=== PATIENT | female | born 1965 | race Caucasian/White ===

== ENCOUNTER → 2016-07-08 | Outpatient (REF) | payer OTHER | LOC: M SFHCWAGY 08:48 | PROVIDERS: ATTEND Nurse Practitioner Women's Health | DX: Z12.4 Encounter for screening for malignant neoplasm of cervix (principal) ==

== ENCOUNTER → 2016-07-08 | Outpatient (CLI) | payer OTHER ==
--- NOTE | 2016-07-08 11:33 | REPMRS ---
Patient History The patient states she had a clinical breast exam in 06/27 Patient is postmenopausal. No known family history of cancer. Benign FNA biopsy of the left breast, March 22, 2013. Benign cyst aspiration, 2009. Benign stereotatic breast biopsy, 2004. Digital Woman Screen Mammo: July 08, 2016 - Exam #: [id number] Bilateral CC and MLO view(s) were taken. Technologist: Adeola Duckworth, Technologist Prior study comparison: May 25, 2015, digital woman screen mammo performed at [facility]. May 29, 2014, bilateral digital mammo screening bilat, performed at [facility]. FINDINGS: The breast tissue is heterogeneously dense. This may lower the sensitivity of mammography. There has been no change in the appearance of the mammogram from the prior studies. There is a moderate amount of residual fibroglandular tissue which is fairly symmetric. There is no interval development of dominant mass, architectural distortion, or clustered microcalcification typical of malignancy. There are scattered, small, benign calcifications of doubtful clinical significance. No significant changes when compared with prior studies. ASSESSMENT: BI-RADS/ACR category 2 mammogram. Benign finding(s). Recommendation Routine screening mammogram in 1 year (for women over age 40). This mammogram was interpreted with the aid of an FDA-approved computer-aided dectection system. A. Negative x-ray reports should not delay biopsy if a dominant or clinically suspicious mass is present. B. Four to eight percent of cancers are not identified by mammography. C. Adenosis and dense breast may obscure an underlying neoplasm. Electronically Signed By: Lon Ritter MD 07/08/16 [id number]
== END ==
LOC: M WHC 08:37
PROVIDERS: ATTEND Nurse Practitioner Women's Health
DX: Z12.31 Encounter for screening mammogram for malignant neoplasm of breast (principal)

== ENCOUNTER → 2017-07-09 | Outpatient (REF) | payer OTHER ==
[2017-07-14 14:18] LABS: HPV HYBRID CAPTURE II Positive (Negative)
== END ==
LOC: M SFHCWAGY 08:44
DX: Z12.4 Encounter for screening for malignant neoplasm of cervix (principal)
CPT/HCPCS: G0123

== ENCOUNTER → 2017-07-09 | Outpatient (CLI) | payer OTHER | LOC: M WHC 08:34 | DX: Z12.31 Encounter for screening mammogram for malignant neoplasm of breast (principal); Z78.0 Asymptomatic menopausal state; Z98.890 Other specified postprocedural states; R92.8 Other abnormal and inconclusive findings on diagnostic imaging of breast | CPT/HCPCS: 77067 ==

== ENCOUNTER 2018-01-25 09:01 | Emergency (ER) | payer OTHER ==
[2018-01-25] MEDS: IBUPROFEN 600 MG TAB PO (10:08)
== END 2018-01-25 10:10 | disposition home or self-care (01) ==
LOC: M ED 09:01
DX: S52.045A Nondisplaced fracture of coronoid process of left ulna, initial encounter for closed fracture (principal); W17.89XA Other fall from one level to another, initial encounter; Y92.013 Bedroom of single-family (private) house as the place of occurrence of the external cause; G35 Multiple sclerosis; F17.210 Nicotine dependence, cigarettes, uncomplicated
CPT/HCPCS: 73080

== ENCOUNTER 2018-07-10 16:26 | Emergency (ER) | payer OTHER ==
[2018-07-10] MEDS ORDERED: NS 1,000 ML IV ONE (16:30)
[2018-07-10] MEDS ORDERED: PROPOFOL 1,000 MG/100 ML VIAL As Ordered ONE ×2 (16:39→17:08)
[2018-07-10 16:41] LABS: HEMATOCRIT 48.9 % (36.0-47.0); HEMOGLOBIN 15.6 g/dl (12.0-15.5); MEAN CORPUSCULAR HEMOGLOBIN 31.6 pg (27.0-33.0); MEAN CORPUSCULAR HGB CONC 31.9 g/dl (32.0-36.5); PLATELET COUNT, AUTOMATED 235 10^3/uL (150-450); RED BLOOD COUNT 4.94 10^6/uL (4.00-5.40)
[2018-07-10] MEDS ORDERED: HEPARIN DRIP 25,000 UNITS in APPROPRIATE DILUENT 1 EA IV SCH (16:41)
[2018-07-10 16:42] LABS: ABG BASE EXCESS -18.5 (-2.0-2.0); ABG HCO3 11.2 MEQ/L (22.0-26.0); ABG O2 SATURATION 99.2 % (95.0-99.0); ABG PARTIAL PRESSURE CO2 40.3 mmHg (35.0-45.0); ABG STANDARD HCO3 11.2 MEQ/L (22.0-26.0); ABG TOTAL CO2 12.4 MEQ/L (22.0-29.0)
[2018-07-10] MEDS ORDERED: HEPARIN SOD (PORCINE) 5000 UNITS/ML VIAL IV ONE (16:45)
[2018-07-10 16:46] LABS: ABG pH (ARTERIAL) 7.062 UNITS (7.350-7.450)
[2018-07-10] MEDS ORDERED: SODIUM BICARBONATE 8.4% INJ 50 ML SYRINGE IV STA (16:46)
[2018-07-10 16:52] LABS: WHITE BLOOD COUNT 10.7 10^3/uL (4.0-10.0)
[2018-07-10 17:00] LABS: INR 1.3; PROTHROMBIN TIME 16.4 SECONDS (12.1-14.4)
[2018-07-10 17:03] VITALS: BP 132/75
--- NOTE | 2018-07-10 17:10 | REP ---
Clinical: Chest pain . Comparison: 07/29/2010 . Findings: Right mainstem intubation is is identified and endotracheal tube requires repositioning. The mediastinum and cardiac silhouette are stable and within normal limits for portable technique. The lung pelayo are clear without acute consolidation, effusion, or pneumothorax. Skeletal structures are intact. Impression: 1. Endotracheal tube requires repositioning. 2. No acute cardiopulmonary process appreciated. Electronically Signed by Delfin Chanel MD 07/10/2018 05:01 P
[2018-07-10 17:19] LABS: ALBUMIN 3.4 GM/DL (3.2-5.2); ALT/SGPT 59 U/L (12-78); BILIRUBIN,DIRECT < 0.1 MG/DL (0.0-0.2); BILIRUBIN,TOTAL 0.4 MG/DL (0.2-1.0); BLOOD UREA NITROGEN 11 MG/DL (7-18); CALCIUM LEVEL 8.9 MG/DL (8.5-10.1); CARBON DIOXIDE LEVEL 18 MEQ/L (21-32); CHLORIDE LEVEL 103 MEQ/L (98-107); CK-MB VALUE MASS < 1.0 NG/ML (<3.6); CPK CREATINE PHOSPHOKINASE 97 U/L (26-192); CREATININE FOR GFR 1.05 MG/DL (0.55-1.30); GLOMERULAR FILTRATION RATE 57.9 (>51); GLUCOSE, FASTING 222 MG/DL (70-100); LIPASE 446 U/L (73-393); MB/CK RELATIVE INDEX 1.03 (< OR =4); POTASSIUM SERUM 3.6 MEQ/L (3.5-5.1); SODIUM LEVEL 140 MEQ/L (136-145)
[2018-07-10 17:23] LABS: ATYPICAL LYMPH 1 % (0-5); LYMPHOCYTES 50 % (16-52); METAMYELOCYTES 2 % (0-0); MONOCYTES 2 % (0-8); MYELOCYTES 4 % (0-0); NEUTROPHILS 38 % (35-75); PLATELET ESTIMATE NORMAL (NORMAL)
[2018-07-10] MEDS ORDERED: SUCCINYLCHOLINE INJ 200 MG/10 ML VIAL (J0330) IV STA (17:29)
[2018-07-10] MEDS ORDERED: ETOMIDATE INJ 20MG/10ML VIAL IV STA (17:29)
[2018-07-10] MEDS ORDERED: PROPOFOL 200 MG/20 ML VIAL IV ONE (17:30)
--- NOTE | 2018-07-10 18:15 | ECGEPIP ---
Stationary ECG Study [facility] - ED Test Date: 2018-07-10 Pat Name: SHELBY PANTOJA Department: Room: - Gender: F Coordinator Of Placement: HUI : 1965 Requested By: ANNEL TILLMAN Order Number: [id number] Reading MD: Alecia Nolan Measurements Intervals [place] Rate: 67 P: RI: 0 QRS: 33 QRSD: 128 T: 70 QT: 393 QTc: 415 Interpretive Statements ATRIAL FIBRILLATION INDETERMINATE AXIS RIGHT BUNDLE BRANCH BLOCK ST ELEVATION, ACUTE MS NO PRIOR FOR COMPARISON Electronically Signed On 07-10-2018 18:14:31 EDT by Alecia Nolan
== END 2018-07-10 17:19 | disposition short-term general hospital (02) ==
LOC: EDBD 16:26 → M ED 16:26
DX: I21.3 ST elevation (STEMI) myocardial infarction of unspecified site (principal); I48.91 Unspecified atrial fibrillation; I45.10 Unspecified right bundle-branch block; Z82.49 Family history of ischemic heart disease and other diseases of the circulatory system; Z79.82 Long term (current) use of aspirin; Z79.899 Other long term (current) drug therapy
CPT/HCPCS: 31500; 36600; 51702; 71045; 80048; 80076; 82550; 82553; 82803; 83690; 84484; 85025; 85610; 92950; 93005; 93041; 94002; 96374; 96375; 99291; J0330

== ENCOUNTER 2018-07-20 15:21 | Inpatient (IN) | payer OTHER ==
[~2018-07-20] VITALS: Ht 157.5 cm; Wt 61.8 kg
[2018-07-20] VITALS (14 sets, daily range): BP systolic 66–106; BP diastolic 39–69
[2018-07-20] MEDS ORDERED: ASPI81TA85 PO (15:42)
[2018-07-20] MEDS ORDERED: AMOX875T2 PO (15:42)
[2018-07-20] MEDS ORDERED: BRIL90TA PO (15:47)
[2018-07-20] MEDS ORDERED: CALC600T3 PO (15:47)
[2018-07-20] MEDS ORDERED: GUAI20TA PO (15:47)
[2018-07-20] MEDS ORDERED: POTA20TA6 PO (15:47)
[2018-07-20] MEDS ORDERED: ATOR40TA75 PO (15:47)
[2018-07-20 15:54] LABS: BASO # 0.1 10^3/uL (0.0-0.2); BASO % 0.3 % (0.0-1.0); EOS # 0.2 10^3/uL (0.0-0.50); EOS % 1.1 % (0.0-3.0); HEMOGLOBIN 10.3 g/dl (12.0-15.5); LYMPH # 1.7 10^3/uL (1.5-4.5); LYMPH % 9.3 % (24.0-44.0); MEAN CORPUSCULAR HEMOGLOBIN 31.1 pg (27.0-33.0); MEAN CORPUSCULAR HGB CONC 33.2 g/dl (32.0-36.5); MEAN CORPUSCULAR VOLUME 93.7 fl (80.0-96.0); MONO # 0.8 10^3/uL (0.0-0.8); MONO % 4.2 % (0.0-5.0); NEUTROPHILS # 15.5 10^3/uL (1.8-7.7); NEUTROPHILS % 82.7 % (36.0-66.0); PLATELET COUNT, AUTOMATED 635 10^3/uL (150-450); RED BLOOD COUNT 3.31 10^6/uL (4.00-5.40); WHITE BLOOD COUNT 18.7 10^3/uL (4.0-10.0)
--- NOTE | 2018-07-20 16:26 | REP ---
Portable chest, single AP semi upright view, three, 59 p.m.: Comparison is 07/10/2018. The previous endotracheal tube has been removed. Lung pelayo are clear. Cardiac size is normal. The tere, mediastinum, skeletal structures are. Impression: Negative portable chest. Electronically Signed by Nick Martinez MD 07/20/2018 04:17 P
[2018-07-20 16:58] LABS: ALBUMIN 2.4 GM/DL (3.2-5.2); ALT/SGPT 77 U/L (12-78); BILIRUBIN,DIRECT 0.1 MG/DL (0.0-0.2); BILIRUBIN,TOTAL 0.4 MG/DL (0.2-1.0); BLOOD UREA NITROGEN 26 MG/DL (7-18); CALCIUM LEVEL 8.7 MG/DL (8.5-10.1); CARBON DIOXIDE LEVEL 24 MEQ/L (21-32); CHLORIDE LEVEL 105 MEQ/L (98-107); CK-MB VALUE MASS < 1.0 NG/ML (<3.6); CPK CREATINE PHOSPHOKINASE 27 U/L (26-192); CREATININE FOR GFR 0.69 MG/DL (0.55-1.30); GLOMERULAR FILTRATION RATE > 60.0 (>51); GLUCOSE, FASTING 117 MG/DL (70-100); POTASSIUM SERUM 4.7 MEQ/L (3.5-5.1); SODIUM LEVEL 137 MEQ/L (136-145); TOTAL PROTEIN 6.3 GM/DL (6.4-8.2); TROPONIN I 0.06 NG/ML (< 0.10)
--- NOTE | 2018-07-20 17:41 | REP ---
CT CHEST WITHOUT IV CONTRAST: CT chest was performed without IV contrast. Sagittal and coronal reconstruction images are performed. There are diffuse bilateral reticulonodular opacities, throughout both lungs. The differential diagnosis would include diffuse pneumonitis and or fibrosis. There is mild right lower lobe bronchiectasis with inspissated secretions medially in the right lower lobe and associated mild atelectasis or infiltrate in that area. No axillary or mediastinal adenopathy is seen. There is mild atherosclerotic calcification of the thoracic aorta without aneurysm. There are coronary artery calcifications. The heart is normal in size. There is no pleural or pericardial effusion. There are degenerative changes of the spine. There are nondisplaced fractures of the anterior bilateral 2nd through 6th ribs. There is a 2 cm left adrenal adenoma. IMPRESSION: Diffuse reticulonodular opacities throughout both lungs. Differential diagnosis would include diffuse pneumonitis and or fibrosis. There is mild right lower lobe bronchiectasis medially with inspissated secretions and mild associated atelectasis/infiltrate. There are nondisplaced fractures of the anterior bilateral 2nd through 6th ribs. Electronically Signed by Nick Gan MD 07/21/2018 03:18 P
[2018-07-20] MEDS ORDERED: PIPERACILLIN/TAZOBACTAM SOD 3.375 GM in D5W MINI-BAG PLUS 50 ML IV ONE (18:00)
[2018-07-20] MEDS ORDERED: NS 500 ML IV ONE ×3 (18:15→19:30)
[2018-07-20] MEDS ORDERED: ACETAMINOPHEN TAB 650MG DOSE (2X325MG) PO ONE (19:00)
[2018-07-20] MEDS ORDERED: ACETAMINOPHEN 325 MG TAB As Ordered ONE (19:14)
[2018-07-20] MEDS ORDERED: NS 1,000 ML IV ONE (19:15)
[2018-07-20 19:19] LABS: CK-MB VALUE MASS < 1.0 NG/ML (<3.6); CPK CREATINE PHOSPHOKINASE 22 U/L (26-192); MB/CK RELATIVE INDEX 4.55 (< OR =4); TROPONIN I 0.07 NG/ML (< 0.10)
[2018-07-20] MEDS ORDERED: NITR0.4S14 SL (19:58)
[2018-07-20] MEDS ORDERED: COMBAER6 INH (19:58)
[2018-07-20] MEDS ORDERED: MUCI600T31 PO (19:58)
[2018-07-20] MEDS ORDERED: D 202000 PO (19:58)
[2018-07-20] MEDS ORDERED: POTA20PW PO (19:58)
[2018-07-20] MEDS ORDERED: MORPHINE 4 MG/ML 1ML VIAL/SYRINGE (J2270) IV PRN (20:15)
[2018-07-20] MEDS ORDERED: PANTOPRAZOLE 40MG INJ (PROTONIX) (C9113) IV ONE (20:45)
[2018-07-20] MEDS: PANTOPRAZOLE SODIUM 40 MG in D5W 50 ML IV SCH (20:45)
[2018-07-20] MEDS ORDERED: NOREPINEPHRINE BITARTRATE 8 MG in D5W 492 ML IV SCH ×2 (20:45)
[2018-07-20] MEDS ORDERED: POTASSIUM CHL PWD 20 MEQ PACKET PO SCH (21:00)
[2018-07-20] MEDS ORDERED: TICAGRELOR 90 MG TABLET (BRILINTA) PO SCH (21:00)
[2018-07-20] MEDS ORDERED: VANCOMYCIN HCL 1,000 MG, VIAL MATE ADAPTER 1 EACH in D5W 250 ML IV SCH (21:00)
--- NOTE | 2018-07-20 21:02 | PHACANCOPD ---
PHARMACY VANCOMYCIN DOSING Pt Demographics Demographics Patient Age:53 , Weight:74.090 , Gender: female Adjusted Body Weight Date: 07/20/18, Adjusted Body Weight: Kg Vancomycin Vancomycin indication: HCAP Vancomycin Target Ranges: 15-20 mcg/ml Vancomycin Load Y/N: Yes Load Dose Date Time Vancomycin Load Dose: 1500mg Date:07/20/18 Time:2100 Vancomycin Dose Date: 07/20/18. Current Vancomycin Dose: [1g IV Q12H] Intermittent Dosing?: No Labs Labs Item Value Date Time White Blood Count 18.7 10^3/uL H 07/20/18 1536 Creatinine 0.69 MG/DL 07/20/18 1619 Micro Microbiology 07/20/18 Blood Culture, Received Pending 07/20/18 Blood Culture, Received Pending 07/20/18 Respiratory Virus Panel (PCR) (GEETHA) - Final, Complete Creatinine Clearance Date:07/20/18.Est Creatinine Clearance: [~79ml/min]. Assessment and Plan Maintaining Current Dose?: Yes Reason for dose change: No Dose Change Pharmacist Note Pharmacist Note Date: 07/20/18. Pharmacist note: Day #1 empiric vancomycin therapy initiated with a 1500mg loading dose, followed by a maintenance regimen of 1g IV Q12H for the treatment of HCAP - aiming for a goal trough of 15-20mcg/ml. WBC, pulse, and RR are currently elevated. The patient is afebrile and pulse ox is currently WNL on room air. Blood cultures are pending. No PMH of MRSA or vanco use here at [facility]. We will continue to monitor the patient's renal function and schedule a trough level when deemed appropriate. [facility]OYA ULLOA [facility] Jul 20, 2018 21:02
--- NOTE | 2018-07-20 21:21 | HPEPDOC ---
[facility] Medical History & Physical Date of Admission Jul 20, 2018 History and Physical CHIEF COMPLAINT: shortness of breath, nausea, vomiting, weakness HISTORY OF PRESENT ILLNESS: Star Lindsay is a 53 YO F with CAD (s/p MA and 2 EULALIA placed 10 days ago at [facility]), and multiple sclerosis who presents with several hours weakness, nausea, diarrhea and shortness of breath. She was just discharged from [facility] 10 days ago, and has been taking all of her medication as prescribed and was reportedly improving, however, today around 2 PM her notes that she was profoundly weak, lightheaded, dizzy, complained of nausea and had diarrhea. She does report some subjective fevers and chills and has been experiencing shortness of breath to the point where she cannot get out of bed. Hospital records were obtained from [facility] and reports that prior to discharge. Her last chest x-ray shows resolving edema but still concerns for pneumonia or atelectasis. He was started on oral Augmentin and has been taking it. She did receive chest compressions when she had her MA and has several rib fractures that are causing her a great deal of chest wall tenderness. In the ED, she was found to be hypotensive with systolic 80s and diastolic 50s and a map around 60. The hospitalist group was called for admission and she will be sent to the ICU for fluid resuscitation and concern for pneumonia versus septic shock. PAST MEDICAL HISTORY: 1. Multiple sclerosis 2. CAD S/P 2 drug-eluting stents on 07/11/2018 PAST SURGICAL HISTORY: None SOCIAL HISTORY: Lives in [place] with her . Never smoker. No alcohol use. FAMILY HISTORY: Noncontributory ALLERGIES: Please see below. REVIEW OF SYSTEMS: A 10 point review of systems was performed and is negative other than what is stated in the [facility] HOME MEDICATIONS: Please see below. PHYSICAL EXAMINATION: VITAL SIGNS: Temperature 99, pulse 98, respiratory rate 24, blood pressure 80/54, pulse oximetry 100 % on room air. GENERAL APPEARANCE: Very pale appearing, laying in bed, calm, no acute distress HEENT: Moist mucous membranes, no thyromegaly, or extra ocular movements intact CARDIOVASCULAR: Tachycardic but regular, no murmurs, no rubs, no gallops LUNGS: Rhonchorous at the bases bilaterally ABDOMEN: Soft, nontender, + BS, no masses, no organomegaly MUSCULOSKELETAL: Moves all extremities well EXTREMITIES: No clubbing, cyanosis or edema NEUROLOGICAL: No focal deficits appreciated PSYCHIATRIC: AAO 3, normal mood, normal affect LABORATORY DATA: See below. IMAGING: CXR: The previous endotracheal tube has been removed. Lung pelayo are clear. Cardiac size is normal. The tere, mediastinum, skeletal structures are. Impression: Negative portable chest CT CHEST: Diffuse reticulonodular opacities throughout both lungs. Differential diagnosis would include diffuse pneumonitis and or fibrosis. There is mild right lower lobe bronchiectasis medially with inspissated secretions and mild associated atelectasis/infiltrate. There are nondisplaced fractures of the anterior bilateral 2nd through 6th ribs. MICROBIOLOGY: Please see below. ASSESSMENT: This is a 53-year-old woman with recent history of MA and placement of 2 stents in [place] who presents with several hours, nausea, vomiting, weakness and found to have a CT chest with reticular nodular opacities throughout both lungs concerning for pneumonia. She is also hypotensive, tachycardic, and experiencing hemoptysis which is also concerning for signs of septic shock with or without a stress ulcer. She will be admitted to the ICU for close monitoring and fluid resuscitation PLAN: #Hypotension and tachycardia concerning for septic shock Vs hypovolemic shock from GIB: Patient is afebrile but does have a elevated white count at 18.7. No known source of infection. While CT chest is concerning for pneumonia. It is noted that on her records from outside hospital she did have some evidence of atelectasis at her bases and was told to follow-up with pulmonology after her admission in [place]. -s/p 1500 mL IV fluid boluses in the ED. We'll continue fluid resuscitation at this time and will watch for response with her blood pressure and urine output. The family states that her blood pressure normally runs low. Goal MAP is to keep her above 60 -Blood cultures pending -RVP negative -Urine negative for infection -The patient will be given Levophed through the peripheral IV at this time. Contingency plan is to place central line if needed. #Hematemesis and Melena and Acute blood loss anemia: The patient started to experience hematemesis in the ER. Given her recent hospitalization and interventions this may be due to stress ulcer. -GI consulted. Appreciate recommendations -Pantoprazole gtt -Type and cross on record with plan to transfuse if necessary -Patient is somewhat anemic on admission with a hemoglobin of 10.3, which is lower than her baseline -will hold Brillinta and asa tonight. #CAD status post recent drug-eluting stent placement: The patient's nurse instructor in [place] (Dr. Fajardo) made aware of her hospitalization here -Patient appears to be stable. She will continue her home dose of Brilinta. If our pharmacy does not have it she did bring it from home. -Patient will need an echocardiogram -BNP pending DVT PPX: TEDS/Sequentials CODE STATUS: FULL CODE Vital Signs Vital Signs Date Time Temp Pulse Resp B/P (MAP) Pulse Ox O2 Delivery O2 Flow Rate FiO2 07/20/18 20:00 98 24 80/54 (63) 100 Room Air 07/20/18 19:11 99.0 Laboratory Data Labs 24H Laboratory Tests 2 07/20/18 15:36: Immature Granulocyte % (Auto) 2.4, White Blood Count 18.7H, Red Blood Count 3.31L, Hemoglobin 10.3L, Hematocrit 31.0L, Mean Corpuscular Volume 93.7, Mean Corpuscular Hemoglobin 31.1, Mean Corpuscular Hemoglobin Concent 33.2, Red Cell Distribution Width 13.7, Platelet Count 635H, Neutrophils (%) (Auto) 82.7H, Lymphocytes (%) (Auto) 9.3L, Monocytes (%) (Auto) 4.2, Eosinophils (%) (Auto) 1.1, Basophils (%) (Auto) 0.3, Neutrophils # (Auto) 15.5H, Lymphocytes # (Auto) 1.7, Monocytes # (Auto) 0.8, Eosinophils # (Auto) 0.2, Basophils # (Auto) 0.1, Nucleated Red Blood Cells % (auto) 0.0 07/20/18 16:19: Anion Gap 8, Glomerular Filtration Rate > 60.0, Calcium Level 8.7, Aspartate Amino Transf (AST/SGOT) 40H, Alanine Aminotransferase (ALT/SGPT) 77, Alkaline Phosphatase 131H, Total Bilirubin 0.4, Direct Bilirubin 0.1, Total Creatine Kinase 27, Creatine Kinase MB < 1.0, Creatine Kinase MB Relative Index 3.70, Troponin I 0.06, Total Protein 6.3L, Albumin 2.4L, Albumin/Globulin Ratio 0.62L 07/20/18 17:55: Urine Color YELLOW, Urine Appearance CLOUDYH, Urine pH 5.0, Urine Specific Parsons 1.039, Urine Protein 1+H, Urine Glucose (UA) NEGATIVE, Urine Ketones TRACEH, Urine Blood NEGATIVE, Urine Nitrite NEGATIVE, Urine Bilirubin 1+H, Urine Urobilinogen 2.0H, Urine Leukocyte Esterase NEGATIVE, Urine WBC (Auto) 4H, Urine RBC (Auto) 3, Urine Hyaline Casts (Auto) 0, Urine Bacteria (Auto) NEGATIVE, Urine Squamous Epithelial Cells 69, Urine Calcium Oxalate Cryst (Auto) SMALL, Urine Mucus (Auto) LARGE, Urine Sperm (Auto) 07/20/18 18:44: Total Creatine Kinase 22L, Creatine Kinase MB < 1.0, Creatine Kinase MB Relative Index 4.55H, Troponin I 0.07 CBC/BMP Laboratory Tests 07/20/18 15:36 Red Blood Count 3.31 L, Mean Corpuscular Volume 93.7, Mean Corpuscular Hemoglobin 31.1, Mean Corpuscular Hemoglobin Concent 33.2, Red Cell Distribution Width 13.7, Neutrophils (%) (Auto) 82.7 H, Lymphocytes (%) (Auto) 9.3 L, Monocytes (%) (Auto) 4.2, Eosinophils (%) (Auto) 1.1, Basophils (%) (Auto) 0.3, Neutrophils # (Auto) 15.5 H, Lymphocytes # (Auto) 1.7, Monocytes # (Auto) 0.8, Eosinophils # (Auto) 0.2, Basophils # (Auto) 0.1 07/20/18 16:19 Microbiology Microbiology 07/20/18 Blood Culture, Received Pending 07/20/18 Blood Culture, Received Pending 07/20/18 Respiratory Virus Panel (PCR) (GEETHA) - Final, Complete Home Medications Scheduled Amoxicillin/Potassium Clav (Amox-Clav 875-125 mg Tablet) 1 Each Tablet, 1 TAB PO BID STARTED 07/16/2018 Aspirin (Aspir 81) 81 Mg Tablet.dr, 81 MG PO DAILY Atorvastatin Calcium (Atorvastatin Calcium) 40 Mg Tablet, 40 MG PO QHS Calcium Carbonate (Calcium Carbonate) 600 Mg Tablet, 600 MG PO DAILY Cholecalciferol (Vitamin D3) (Vitamin D3) 2,000 Unit Tablet, 2,000 UNIT PO DAILY Potassium Chloride (Potassium Chloride) 20 Meq Packet, 20 MEQ PO BID Ticagrelor Base (Brilinta) 90 Mg Tablet, 90 MG PO BID Scheduled PRN Guaifenesin (Mucinex) 600 Mg Tab.er.12h, 600 MG PO DAILY PRN for CONGESTION Ipratropium/Albuterol Sulfate (Combivent Respimat 20-100 Mcg) 4 Gm Mist.inhal, 1 PUFF INH Q6H PRN for SHORTNESS OF BREATH Nitroglycerin (Nitroglycerin) 0.4 Mg Tab.subl, 0.4 MG SL NITRO PRN for CHEST PAIN Allergies Coded Allergies: No Known Allergies (Unverified , 01/25/18) GME ATTESTATION GME ATTESTATION My faculty preceptor for this patient encounter was physically present during the encounter and was fully available. All aspects of the patient interview, examination, medical decision making process, and medical care plan development were reviewed and approved by the faculty preceptor. The faculty preceptor is aware and concurs with the plan as stated in the body of this note and will attest to such by his/her cosignature. ATTENDING NOTE I have reviewed the residents note and have personally examined the patient. I agree with the Residents physical examination and assessment and plan with the following addendum. Soon after admission patient started having hematemesis and milly. Repeat HH had dropped to 5.5 from 10 .3 on admission. 4 units of PRBC were requested. GI was consulted for urgent endoscopy. Dr Fajardo was contacted again regarding her Brilinta and asa. He said inspite of the bleeding we will have to continue it otherwise the stent will get thrombosed and the patient will end up with the massive anterior wall AMI. Patient remained hypotensive inspite of fluid resuscitation. Levophed was ordered and PRBC transfusions started. Patient was taken to OR for emergent endoscopy . pateint was started on pantoprazole gtt. So the patient was diagnosed with hypovolemic shock from upper gastrointestinal bleeding rather than septic shock from pneumonia. However will continue with Zosyn coverage for now as with ongoing hematemesis, endoscopy patient is at high risk for aspiration and aspiration pneumonia. GITA GARSIA MD Jul 20, 2018 21:20 LATOYA CARDENAS MD Jul 20, 2018 22:12
[2018-07-20 21:49] LABS: BASO % 0.2 % (0.0-1.0); EOS % 0.2 % (0.0-3.0); HEMATOCRIT 17.4 % (36.0-47.0); LYMPH # 2.3 10^3/uL (1.5-4.5); LYMPH % 11.5 % (24.0-44.0); MEAN CORPUSCULAR HEMOGLOBIN 31.5 pg (27.0-33.0); MEAN CORPUSCULAR HGB CONC 32.2 g/dl (32.0-36.5); MEAN CORPUSCULAR VOLUME 97.8 fl (80.0-96.0); MONO # 0.9 10^3/uL (0.0-0.8); MONO % 4.7 % (0.0-5.0); NEUTROPHILS # 15.5 10^3/uL (1.8-7.7); NEUTROPHILS % 79.4 % (36.0-66.0); PLATELET COUNT, AUTOMATED 502 10^3/uL (150-450); RED BLOOD COUNT 1.78 10^6/uL (4.00-5.40); WHITE BLOOD COUNT 19.6 10^3/uL (4.0-10.0)
[2018-07-20 21:54] LABS: FREE T4 1.41 NG/DL (0.76-1.46); NT-PRO BNP 1156 PG/ML (<125)
[2018-07-20 21:55] LABS: HEMOGLOBIN 5.6 g/dl (12.0-15.5)
[2018-07-20] MEDS ORDERED: NOREPINEPHRINE BITARTRATE 4 MG in D5W 492 ML IV SCH (22:00)
[2018-07-20] MEDS ORDERED: VANCOMYCIN HCL 500 MG in D5W MINI-BAG PLUS 100 ML IV ONE (22:00)
[2018-07-20] MEDS ORDERED: NOREPINEPHRINE 4 MG/4 ML AMP As Ordered ONE (22:03)
[2018-07-20] MEDS: NOREPINEPHRINE BITARTRATE 8 MG in D5W 492 ML IV SCH (23:00)
[2018-07-21] VITALS (93 sets, daily range): BP systolic 82–151; BP diastolic 44–77
[2018-07-21] MEDS ORDERED: EPINEPHrine 1MG/10ML SYRINGE 1.5IN As Ordered ONE (00:28)
[2018-07-21] MEDS ORDERED: EPINEPHrine 1MG/10ML SYRINGE 1.5IN ONE (00:28)
[2018-07-21] MEDS ORDERED: METOCLOPRAMIDE INJ 10MG/2ML VIAL (J2765) IV STA (00:31)
--- NOTE | 2018-07-21 00:33 | CR.PDOC ---
General Date of Consultation: Jul 21, 2018 Referring Provider: LATOYA CARDENAS MD Attending Physician: SYED TOLENTINO MD Consultation REASON FOR CONSULTATION/CHIEF COMPLAINT: Hematemesis and requirement for urgent EGD.. HISTORY OF PRESENT ILLNESS: 53 year old female patient with CAD (s/p IA and 2 EULALIA placed in June 2018 at [facility]), and multiple sclerosis, presented with several hours weakness, nausea, diarrhea and shortness of breath, lightheaded, and dizzy. Patient was discharged from [facility] around 1 week ago, had rib fractures from CPR she received during her IA and reporting chest pain as well. Patient was noted with hypotension and infiltrates in Chest Xray and was started on therapy for suspected Pneumonia and Sepsis (Patient also had elevated WBC). Patient had one episode of hematemesis and her repeat CBC dropped and GI was consulted for the same. Patient denies any abdominal pain, but reports having two dark bloody stools since she is admitted. ALLERGIES: NKDA. HOME MEDICATIONS: Please see below. Patient is on ASA and Brilinta PAST MEDICAL HISTORY: 1. Multiple sclerosis. 2. CAD s/p IA and 2 EULALIA in June 2018. PAST SURGICAL HISTORY: 1. Appendectomy many years ago. FAMILY HISTORY: Non - contributory. SOCIAL HISTORY: , Next of kin . Patient denies any alcohol use, smoking. REVIEW OF SYSTEMS: CONSTITUTIONAL: Dizziness, Lightheadedness. No fever. HEENT: denies any dysphagia. CARDIOVASCULAR: Reports chest pain since her rib fractures from CPR. RESPIRATORY: Denies any cough with phlegm but has shortness of breath. GENITOURINARY: NO blood in urine.. GASTROINTESTINAL: as above.. SKIN: No new skin rash. NEUROLOGICAL: No focal weakness.. ENDOCRINE: None HEMATOLOGIC/LYMPHATIC: pallor. ALLERGIC/IMMUNOLOGIC: NO autoimmune issues.. PHYSICAL EXAMINATION: VITAL SIGNS: Please see below. GENERAL APPEARANCE: AAO x 3, Mild distress from shortness of breath and chest pain . HEENT: NC/ AT, Conjunctival pallor, No dysphagia. RESPIRATORY: Bilateral air entry. CARDIOVASCULAR: s1, s2 heard, no murmurs. ABDOMEN: Soft, non distended, normal bowel sounds. EXTREMITIES: bilateral clear.. NEUROLOGICAL: NO focal weakness, moving all extremities. LABORATORY DATA: Please see below. Impression: -- Overt active GI bleeding with hematemesis and maroon stools and acute drop in Hemoglobin -- Likely upper GI bleeding and in view of ASA and Brilinta use likely PUD vs AVM vs less likely MWT. -- Recent acute IA s/p EULALIA placement. very elevated risk. Recommendations: -- Monitor H/H and transfuse as needed to keep hemoglobin above 10gm/dL. -- Pantoprazole IV bolus and continuous drip for atleast 24 hours. -- NPO. -- Antithrombotic management as per discussion with cardiology and considering the risks and benefits. Educated the GI risks with patient but in view of recent IA her cardiac risks are also very high. -- Emergent EGD scheduled now. -- Patient and her were educated in detail about the procedure, indications, benefits, risks ( including elevated anesthesia risk after recent IA), and alternatives ( including no intervention and monitoring) were educated and Both verbalized understanding and patient consented for the procedure. -- Further Gi recommendations based on the EGD findings. plan of care discussed with patient and all questions answered. and recommendations communicated to patient. Vital Signs/I&O Vital Signs Date Time Temp Pulse Resp B/P (MAP) Pulse Ox O2 Delivery O2 Flow Rate FiO2 07/20/18 23:46 106/68 (81) 07/20/18 23:31 103 100 07/20/18 23:00 98.9 2.0 100 07/20/18 20:50 20 Room Air I&O- Last 24 Hours up to 6 AM 07/21/18 06:00 Intake Total 1050 ml Balance 1050 ml Laboratory Data Labs 24H Laboratory Tests 2 07/20/18 15:36: Immature Granulocyte % (Auto) 2.4, White Blood Count 18.7H, Red Blood Count 3.31L, Hemoglobin 10.3L, Hematocrit 31.0L, Mean Corpuscular Volume 93.7, Mean Corpuscular Hemoglobin 31.1, Mean Corpuscular Hemoglobin Concent 33.2, Red Cell Distribution Width 13.7, Platelet Count 635H, Neutrophils (%) (Auto) 82.7H, Lymphocytes (%) (Auto) 9.3L, Monocytes (%) (Auto) 4.2, Eosinophils (%) (Auto) 1.1, Basophils (%) (Auto) 0.3, Neutrophils # (Auto) 15.5H, Lymphocytes # (Auto) 1.7, Monocytes # (Auto) 0.8, Eosinophils # (Auto) 0.2, Basophils # (Auto) 0.1, Nucleated Red Blood Cells % (auto) 0.0 07/20/18 16:19: Anion Gap 8, Glomerular Filtration Rate > 60.0, Calcium Level 8.7, Aspartate Amino Transf (AST/SGOT) 40H, Alanine Aminotransferase (ALT/SGPT) 77, Alkaline Phosphatase 131H, Total Bilirubin 0.4, Direct Bilirubin 0.1, Total Creatine Kinase 27, Creatine Kinase MB < 1.0, Creatine Kinase MB Relative Index 3.70, Troponin I 0.06, Total Protein 6.3L, Albumin 2.4L, Albumin/Globulin Ratio 0.62L 07/20/18 17:55: Urine Color YELLOW, Urine Appearance CLOUDYH, Urine pH 5.0, Urine Specific Rogers 1.039, Urine Protein 1+H, Urine Glucose (UA) NEGATIVE, Urine Ketones TRACEH, Urine Blood NEGATIVE, Urine Nitrite NEGATIVE, Urine Bilirubin 1+H, Urine Urobilinogen 2.0H, Urine Leukocyte Esterase NEGATIVE, Urine WBC (Auto) 4H, Urine RBC (Auto) 3, Urine Hyaline Casts (Auto) 0, Urine Bacteria (Auto) NEGATIVE, Urine Squamous Epithelial Cells 69, Urine Calcium Oxalate Cryst (Auto) SMALL, Urine Mucus (Auto) LARGE, Urine Sperm (Auto) 07/20/18 18:44: Total Creatine Kinase 22L, Creatine Kinase MB < 1.0, Creatine Kinase MB Relative Index 4.55H, Troponin I 0.07, GW-Swn-O-Type Natriuretic Peptide 1156H, Thyroid Stimulating Hormone (TSH) 1.590, Free Thyroxine 1.41 07/20/18 21:30: Immature Granulocyte % (Auto) 4.0H, White Blood Count 19.6H, Red Blood Count 1.78L, Hemoglobin 5.6#*L, Hematocrit 17.4L, Mean Corpuscular Volume 97.8H, Mean Corpuscular Hemoglobin 31.5, Mean Corpuscular Hemoglobin Concent 32.2, Red Cell Distribution Width 13.8, Platelet Count 502#H, Neutrophils (%) (Auto) 79.4H, Lymphocytes (%) (Auto) 11.5L, Monocytes (%) (Auto) 4.7, Eosinophils (%) (Auto) 0.2, Basophils (%) (Auto) 0.2, Neutrophils # (Auto) 15.5H, Lymphocytes # (Auto) 2.3, Monocytes # (Auto) 0.9H, Eosinophils # (Auto) 0.0, Basophils # (Auto) 0.0, Nucleated Red Blood Cells % (auto) 0.0 CBC/BMP Laboratory Tests 07/20/18 15:36 Red Blood Count 3.31 L, Mean Corpuscular Volume 93.7, Mean Corpuscular Hemoglobin 31.1, Mean Corpuscular Hemoglobin Concent 33.2, Red Cell Distribution Width 13.7, Neutrophils (%) (Auto) 82.7 H, Lymphocytes (%) (Auto) 9.3 L, Monocytes (%) (Auto) 4.2, Eosinophils (%) (Auto) 1.1, Basophils (%) (Auto) 0.3, Neutrophils # (Auto) 15.5 H, Lymphocytes # (Auto) 1.7, Monocytes # (Auto) 0.8, Eosinophils # (Auto) 0.2, Basophils # (Auto) 0.1 07/20/18 16:19 07/20/18 21:30 Red Blood Count 1.78 L, Mean Corpuscular Volume 97.8 H, Mean Corpuscular Hemoglobin 31.5, Mean Corpuscular Hemoglobin Concent 32.2, Red Cell Distribution Width 13.8, Neutrophils (%) (Auto) 79.4 H, Lymphocytes (%) (Auto) 11.5 L, Monocytes (%) (Auto) 4.7, Eosinophils (%) (Auto) 0.2, Basophils (%) (Auto) 0.2, Neutrophils # (Auto) 15.5 H, Lymphocytes # (Auto) 2.3, Monocytes # (Auto) 0.9 H, Eosinophils # (Auto) 0.0, Basophils # (Auto) 0.0 Microbiology Microbiology 07/20/18 Blood Culture, Received Pending 07/20/18 Blood Culture, Received Pending 07/20/18 Stool Occult Blood (GEETHA), Received Pending 07/20/18 Respiratory Virus Panel (PCR) (GEETHA) - Final, Complete Allergies Coded Allergies: No Known Allergies (Unverified , 01/25/18) Home Medications Scheduled Amoxicillin/Potassium Clav (Amox-Clav 875-125 mg Tablet) 1 Each Tablet, 1 TAB PO BID, (Reported) STARTED 07/16/2018 Aspirin (Aspir 81) 81 Mg Tablet.dr, 81 MG PO DAILY, (Reported) Atorvastatin Calcium (Atorvastatin Calcium) 40 Mg Tablet, 40 MG PO QHS, (Reported) Calcium Carbonate (Calcium Carbonate) 600 Mg Tablet, 600 MG PO DAILY, (Reported) Cholecalciferol (Vitamin D3) (Vitamin D3) 2,000 Unit Tablet, 2,000 UNIT PO DAILY, (Reported) Potassium Chloride (Potassium Chloride) 20 Meq Packet, 20 MEQ PO BID, (Reported) Ticagrelor Base (Brilinta) 90 Mg Tablet, 90 MG PO BID, (Reported) Scheduled PRN Guaifenesin (Mucinex) 600 Mg Tab.er.12h, 600 MG PO DAILY PRN for CONGESTION, (Reported) Ipratropium/Albuterol Sulfate (Combivent Respimat 20-100 Mcg) 4 Gm Mist.inhal, 1 PUFF INH Q6H PRN for SHORTNESS OF BREATH, (Reported) Nitroglycerin (Nitroglycerin) 0.4 Mg Tab.subl, 0.4 MG SL NITRO PRN for CHEST PAIN, (Reported) SYED TOLENTINO MD Jul 21, 2018 00:33
[2018-07-21] MEDS ORDERED: METOCLOPRAMIDE INJ 10MG/2ML VIAL (J2765) As Ordered ONE (01:01)
[2018-07-21] MEDS ORDERED: fentaNYL 100 MCG/2 ML INJECTION (J3010) As Ordered ONE (01:01)
[2018-07-21] MEDS ORDERED: SUCCINYLCHOLINE 100 MG/5 ML SYRINGE (J0330) As Ordered ONE (01:01)
[2018-07-21] MEDS ORDERED: LIDOCAINE 2% INJ 100 MG/5 ML SDV (FOR ANES.) As Ordered ONE (01:01)
[2018-07-21] MEDS ORDERED: PROPOFOL 200 MG/20 ML VIAL As Ordered ONE (01:01)
--- NOTE | 2018-07-21 01:23 | REP ---
Clinical: Line placement . Comparison: 07/20/2018 at 03:58 p.m. . Findings: Right IJ line with tip in the SVC. The mediastinum and cardiac silhouette are stable and within normal limits for portable technique. The lung pelayo are clear without acute consolidation, effusion, or pneumothorax. Skeletal structures are intact. Impression: No acute cardiopulmonary process appreciated. Electronically Signed by Delfin Chanel MD 07/21/2018 01:14 A
[2018-07-21] MEDS ORDERED: ROCURONIUM BROMIDE 50 MG/5 ML VIAL As Ordered ONE (01:24)
[2018-07-21] MEDS ORDERED: PROPOFOL 1,000 MG/100 ML VIAL As Ordered ONE (01:50)
[2018-07-21 02:10] LABS: HEMATOCRIT 33.9 % (36.0-47.0); MEAN CORPUSCULAR HEMOGLOBIN 29.4 pg (27.0-33.0); MEAN CORPUSCULAR HGB CONC 32.4 g/dl (32.0-36.5); MEAN CORPUSCULAR VOLUME 90.6 fl (80.0-96.0); RED BLOOD COUNT 3.74 10^6/uL (4.00-5.40); WHITE BLOOD COUNT 24.9 10^3/uL (4.0-10.0)
[2018-07-21 02:17] LABS: PLATELET COUNT, AUTOMATED 395 10^3/uL (150-450)
--- NOTE | 2018-07-21 02:36 | IPNPDOC ---
Date Seen The patient was seen on 07/21/18. Progress Note Interval history: Patient had emergent EGD today. Patient received a dose of Reglan prior to pr ocedure. Patient tolerated procedure well. EGD findings: Noted normal esophagus, no MWT, noted large blood clot in Gastric fundus, body extending till antrum. lavage was performed and noted no ulcer in antrum but body and fundus could not be cleared. Duodenum did not show any ulcer or active bleeding. Recommendations: -- Continue IV pantoprazole. -- Will keep the patient intubated and repeat labs and transfuse for now. -- Monitor H/H every 6 hours and transfuse as needed to keep hemoglobin above 10mg/dl -- No contraindication for aspirin and patient to continue Brilinta based on the risks and benefits. -- Avoid NSAIDs. -- Repeat EGD at 6 AM based on the clinical course ( Will require Erythromycin 250 mg IV once at 5 AM if going for procedure) -- OG tube placed during the procedure. Will keep OG tube to gravity drainage. Do not connect it to suction. -- GI will closely follow. plan of care discussed with patient's and ICU team. Patients verbalized understanding and agreed. VS, I&O, 24H, Fishbone Laboratory Data CBC/BMP Laboratory Tests 07/20/18 15:36 07/20/18 16:19 07/20/18 21:30 07/21/18 02:00 SYED TOLENTINO MD Jul 21, 2018 02:36
[2018-07-21] MEDS ORDERED: MIDAZOLAM INJ 2 MG/2 ML VIAL (J2250) As Ordered ONE (02:44)
[2018-07-21] MEDS ORDERED: MIDAZOLAM INJ 2 MG/2 ML VIAL (J2250) IV PRN (02:45)
[2018-07-21] MEDS: PANTOPRAZOLE SODIUM 40 MG in D5W 50 ML IV SCH ×5 (02:47→21:23)
[2018-07-21] MEDS ORDERED: MIDAZOLAM INJ 2 MG/2 ML VIAL (J2250) IV ONE (03:00)
[2018-07-21 03:13] LABS: ABG BASE EXCESS -7.8 (-2.0-2.0); ABG HCO3 16.6 MEQ/L (22.0-26.0); ABG O2 SATURATION 99.5 % (95.0-99.0); ABG PARTIAL PRESSURE CO2 30.7 mmHg (35.0-45.0); ABG PARTIAL PRESSURE O2 181.3 mmHg (75.0-100.0); ABG STANDARD HCO3 18.2 MEQ/L (22.0-26.0); ABG TOTAL CO2 17.6 MEQ/L (22.0-29.0); ABG pH (ARTERIAL) 7.352 UNITS (7.350-7.450)
[2018-07-21] MEDS ORDERED: fentaNYL 100 MCG/2 ML INJECTION (J3010) IV PRN (03:15)
[2018-07-21] MEDS: PROPOFOL 1,000 MG in APPROPRIATE DILUENT 1 EA IV SCH ×4 (03:30→22:15)
--- NOTE | 2018-07-21 05:39 | REP ---
Clinical: Pneumonia . Comparison: 07/20/2018 . Findings: Right IJ line with tip in the SVC. Endotracheal tube 3 cm above the marco. Nasogastric tube courses below left hemidiaphragm. The mediastinum and cardiac silhouette are stable and within normal limits for portable technique. The lung pelayo are clear without acute consolidation, effusion, or pneumothorax. Skeletal structures are intact. Impression: No focal consolidation. Lines and tubes in satisfactory position. Electronically Signed by Delfin Chanel MD 07/21/2018 05:30 A
[2018-07-21 05:43] LABS: BASO # 0.1 10^3/uL (0.0-0.2); BASO % 0.3 % (0.0-1.0); HEMATOCRIT 30.7 % (36.0-47.0); HEMOGLOBIN 10.4 g/dl (12.0-15.5); LYMPH # 1.7 10^3/uL (1.5-4.5); LYMPH % 7.3 % (24.0-44.0); MEAN CORPUSCULAR HEMOGLOBIN 29.6 pg (27.0-33.0); MEAN CORPUSCULAR HGB CONC 33.9 g/dl (32.0-36.5); MEAN CORPUSCULAR VOLUME 87.5 fl (80.0-96.0); MONO # 1.4 10^3/uL (0.0-0.8); MONO % 5.8 % (0.0-5.0); NEUTROPHILS # 19.9 10^3/uL (1.8-7.7); NEUTROPHILS % 82.9 % (36.0-66.0); PLATELET COUNT, AUTOMATED 360 10^3/uL (150-450); RED BLOOD COUNT 3.51 10^6/uL (4.00-5.40)
[2018-07-21 05:58] LABS: BLOOD UREA NITROGEN 30 MG/DL (7-18); CALCIUM LEVEL 6.9 MG/DL (8.5-10.1); CARBON DIOXIDE LEVEL 22 MEQ/L (21-32); CHLORIDE LEVEL 113 MEQ/L (98-107); CREATININE FOR GFR 0.57 MG/DL (0.55-1.30); GLOMERULAR FILTRATION RATE > 60.0 (>51); GLUCOSE, FASTING 141 MG/DL (70-100); POTASSIUM SERUM 4.1 MEQ/L (3.5-5.1); SODIUM LEVEL 141 MEQ/L (136-145)
[2018-07-21] MEDS: PIPERACILLIN/TAZOBACTAM SOD 3.375 GM in D5W MINI-BAG PLUS 50 ML IV SCH ×5 (06:00→18:04)
[2018-07-21 06:05] LABS: INR 1.25; PARTIAL THROMBOPLASTIN TIME 26.4 SECONDS (25.4-37.6); PROTHROMBIN TIME 15.9 SECONDS (12.1-14.4)
[2018-07-21] MEDS ORDERED: METOCLOPRAMIDE INJ 10MG/2ML VIAL (J2765) IV ONE (06:30)
[2018-07-21] MEDS ORDERED: SUCCINYLCHOLINE INJ 200 MG/10 ML VIAL (J0330) As Ordered ONE (07:16)
--- NOTE | 2018-07-21 07:27 | CR ---
DATE OF CONSULTATION: 07/21/2018 HISTORY OF PRESENT ILLNESS : History was obtained from the chart and from collateral information as the patient was intubated on my examination. The patient is a 53-year-old female with a past medical history of multiple sclerosis not on any medications, coronary artery disease with a recent cardiac arrest in the setting of acute FL s/p PCI and two EULALIA in [facility] at [facility] who was recently discharged 10 days ago. She presented with complaint of weakness, nausea, diarrhea and shortness of breath. She had reportedly been improving, after her discharge was compliant with all her medications; however, earlier in the day was noted to be weak and dizzy with a complaint of nausea and diarrhea. She also has some subjective fevers and chills and shortness of breath. She did have some chest pain since discharge as she had rib fractures during her cardiac arrest when she received CPR. She reportedly was discharged with antibiotics also for concern of pneumonia versus atelectasis on her chest x-rays [facility]. She has been compliant with the Augmentin. She continued to have some chest wall tenderness, however as per her , was having difficulty coughing and expectorating mucus. In the ED the patient was tachycardic and hypotensive with systolic blood pressures in the 80s. She was given normal saline, approximately 3 liters normal saline bolus, with some slight improvement in her blood pressure. The patient continued to be diaphoretic, however and in the ED started having episodes of hematemesis. Once she was transferred to the ICU she was noted to be hypotensive again, despite receiving the fluid boluses. She was also noted to have a large amount of melanotic stools. The patient was therefore started on Levophed and had a repeat CBC drawn which showed an acute drop in her hemoglobin. She was started transfusion with packed red blood cells (PRBCs) for a total order of 3 units of PRBCs. GI was called and the patient went for a an emergent endoscopy. She was intubated for the procedure and transferred back to the ICU intubated. PAST MEDICAL HISTORY: 1. Multiple sclerosis. 2. Coronary artery disease with acute FL with cardiac arrest, status post two drug-eluting stents on September 10, 2018. PAST SURGICAL HISTORY: None. SOCIAL HISTORY: Nonsmoker. No alcohol use. FAMILY HISTORY: History of hypertension. ALLERGIES: No known drug allergies. HOME MEDICATIONS: - Augmentin - aspirin - atorvastatin - Brilinta - calcium carbonate - vitamin D - potassium chloride - Combivent as needed - nitroglycerin as needed PHYSICAL EXAMINATION: Temperature 98.6, pulse 92, respirations 18, blood pressure 123/53, O2 sat 100% on 40% FiO2. GENERAL: Patient is intubated and sedated, is responsive to painful stimuli. HEENT: Normocephalic, atraumatic. Pupils are equal and reactive to light bilaterally. Mucous membranes are dry. There is a right internal jugular (IJ) triple lumen in place. She is intubated and there is an orogastric (OG) tube in place. CARDIAC: Regular rate and rhythm. Normal S1-S2. Unable to appreciate any murmurs. PULMONARY: Some coarse ventilator breath sounds bilaterally with occasional rhonchi. ABDOMEN: Soft, mildly distended and nontender. Bowel sounds are present. EXTREMITIES: There is no significant lower extremity edema noted bilaterally. LABORATORY DATA: WBC 24.9, hemoglobin 11.0, platelets 395. Chemistries: Sodium 137, potassium 4.7, chloride 105, bicarb 24, BUN 26, creatinine 0.67, glucose 117, calcium 8.7, total bili 0.4, AST 40, ALT 77, alk phos 131, troponin negative times two, BNP 1156. RSV panel was negative. Chest x-ray shows a right IJ triple lumen in place with the tip in the superior vena cava (SVC). There is mild pulmonary vascular congestion. No focal opacities. CT chest showed some tree and bud reticular nodular opacities throughout the lungs bilaterally more in the lower lobes. There is also some mild right lower lobe bronchiectasis and some inspissated secretions with associated atelectasis in the right lower lobe. There is no significant mediastinal adenopathy. There is no pleural effusion. There are nondisplaced fractures of the anterior ribs bilaterally in the 2nd-6th ribs. There is an incidentally noted to 2 cm left adrenal adenoma. ASSESSMENT/PLAN: Ms. Lindsay is a 53-year female with a history of multiple sclerosis and coronary artery disease with recent cardiac arrest and FL, status post two drug-eluting stents, who presented with the complaint of dizziness, nausea and weakness with shortness of breath. The patient was hypotensive in the ED, was given a normal saline bolus initially with some mild improvement in her blood pressure however, she then was noted to have episodes of hematemesis and melena and her blood pressures decreased again. She was started on Levophed for vasopressor and was found on a repeat CBC to have acute drop in her hemoglobin from a 10.3 on admission to 5.6. She was therefore ordered for 3 units of PRBCs and started on a Protonix drip. The patient had an emergent endoscopy done early this morning which did not show any active source of bleeding, however, she did have a large clot in the fundus of her stomach and that was unable to be evacuated to evaluate. The patient was transferred back to the ICU intubated on the ventilator. 1. Neuro: History of multiple sclerosis, was not on any home medications. Reportedly had been stable and had not had any recent flares in many years. Continue with the sedation while intubated with propofol and titrate for a Zhao of 2-3. Versed p.r.n. for agitation and fentanyl p.r.n. for pain given her history of recent rib fractures. Will hold her daily sedation vacation this morning as there is a plan for a repeat procedure. 2. Cardiovascular: History of coronary artery disease with recent cardiac arrest in the setting of an acute FL, status post two drug-eluting stents. Patient is on dual antiplatelet therapy as an outpatient with aspirin and Brilinta. The patient was hypotensive, in shock, likely hypovolemic shock, with a possible component of septic shock given her leukocytosis; however, she has been afebrile and was previously on antibiotics as an outpatient. The patient was started on Levophed for blood pressure support, however after the transfusion her blood pressures significantly improved and she has been able to be weaned down on the Levophed slowly. Continue to wean down on Levophed and titrate for a MAP above 65. The patient had EKG on admission which did not show any acute changes from her previous EKG. Her troponins were negative times two. Her BNP was elevated and she did have some mild pulmonary vascular congestion on imaging. Will get an echo to evaluate her cardiac function. Will need to resume her aspirin and Brilinta as soon as possible as she has very recent drug-eluting stents placed. Continue with atorvastatin. 3. Pulmonary: The patient was intubated for her endoscopy. She was transferred back to the ICU intubated as there is a plan for a repeat endoscopy in a few hours. She was treated for possible pneumonia as an outpatient and has been on Augmentin for antibiotics. Her CT chest showed evidence of some reticular nodular tree-in bud opacities bilaterally more in the lower lobes with evidence of some atelectasis and some inspissated secretions in the right lower lobe. She does also have rib fractures bilaterally and suspect that she is having some difficulty expectorating her mucus due to rib pain with coughing , which is contributing to her CT findings She does have her leukocytosis however, has been afebrile and on antibiotics. She did have some vomiting and there is concern for further aspiration although her repeat chest x-ray did not show any new focal opacities Will continue with Zosyn for now. Discontinue the vancomycin and will check a procalcitonin to determine de-escalation or discontinuation of her antibiotics. Continue the patient on mechanical ventilation on PRVC with settings of 400/12/40/5, and will followup an ABG Will continue with daily ABGs and chest x-rays while intubated. Continue with ventilator bundle with head of bed elevation, aspiration precautions and chlorhexidine mouthwash. Will check a sputum culture. 4. Gastrointestinal (GI): The patient presented with an acute upper GI bleed likely in the setting of her dual antiplatelet therapy. The patient had emergent endoscopy done earlier which did not show any active bleeding source however, she did have a large clot in the fundus of her stomach and that area was unable to be completely evaluated. Appreciate GI consult and recommendations. Plan is for the patient to receive erythromycin and for a repeat endoscopy to more completely evaluate for sources of GI bleed. Continue with the Protonix drip. Continue the patient with her OG tube to gravity to monitor if there is any acute bleeding. Continue nothing by mouth. Continue to trend hemoglobin and hematocrit and transfuse as needed. The patient has a triple lumen in place as well as large bore IVs in her antecubital. She has an 18 and a 20 gauge. 5. Renal. Will place a Mike to monitor her ins and outs. Will continue to monitor renal function and monitor electrolytes and replete as needed. 6. Deep vein thrombosis (DVT) prophylaxis with sequential compression devices (SCD) and thromboembolic deterrent stockings (TEDS). Will check her coags and correct if needed. 7. FULL CODE. Total critical care time spent, not including any procedures, approximately 1 hour and 45 minutes. MTDD
--- NOTE | 2018-07-21 07:41 | ECGEPIP ---
Stationary ECG Study [facility] Test Date: 2018-07-20 Pat Name: SHELBY PANTOJA Department: Room: [place] [address] Gender: F Art Director: KARIME : 1965 Requested By: GITA GARSIA Order Number: [id number] Reading MD: Rip Barnes Measurements Intervals [place] Rate: 118 P: -36 SD: 107 QRS: 56 QRSD: 75 T: 79 QT: 307 QTc: 432 Interpretive Statements Sinus tachycardia Prior septal infarction with persistent ST elevation in V1 and V2 Inferoapical ST abnormalities Evolutionary repolarization changes from acute anterior wall infarction 07/10/18 Rhythm change and resolution of right bundle branch block Electronically Signed On 07-21-2018 7:40:35 EDT by Rip Barnes
--- NOTE | 2018-07-21 08:03 | RO ---
DATE OF PROCEDURE: PREPROCEDURE DIAGNOSIS: Shock. POSTOPERATIVE DIAGNOSIS: Shock. PROCEDURE PERFORMED: Ultrasound guided insertion of a right internal jugular vein triple-lumen central venous catheter. SURGEON: Dr. Godoy ANESTHESIA: Local with 1% Xylocaine. INDICATIONS FOR PROCEDURE: I was consulted to assist in the placement of a central line in this 53-year-old patient who was admitted with hypotension. She is now showing signs of a gastrointestinal bleed. She is about a week or so postop from coronary stenting for a myocardial infarction. OPERATIVE PROCEDURE: The patient was counseled for placement of the central line and gave verbal consent. This was documented. The patient was placed initially supine on the bed. The right neck was prepped with Chloraprep and a sterile drape was applied. The ultrasound probe was draped sterilely and the patient was then tilted to a Trendelenburg position. Examination of the right neck showed the internal jugular vein to collapse with inspiration. She was tilted into a steeper Trendelenburg position to assist in maintaining some venous distension. Local anesthesia was achieved between the sternal and clavicular heads of the sternocleidomastoid muscle with 1% Xylocaine. The 18 gauge needle was inserted and using ultrasound guidance this was advanced into the internal jugular vein with excellent return of venous blood. The guidewire was placed and the skin was then nicked and the dilator passed. The triple-lumen central venous catheter was then threaded over the guidewire into the vein and advanced to approximately 13 cm at the skin surface. The suture wing was attached. The suture wing was sutured to the skin with two #3-0 silk sutures. The catheter had been flushed with saline prior to insertion and the catheter was then aspirated and flushed and all ports were patent. A sterile chlorhexidine gluconate OpSite type dressing was applied to the entry site. The patient tolerated the procedure well. A stat portable chest x-ray was obtained, which I reviewed and this showed excellent positioning of the catheter tip with no evidence of pneumothorax. DEJOND
[2018-07-21] MEDS ORDERED: SUCCINYLCHOLINE INJ 200 MG/10 ML VIAL (J0330) IV STA ×2 (08:05→08:31)
[2018-07-21] MEDS ORDERED: MIDAZOLAM INJ 2 MG/2 ML VIAL (J2250) IV STA (08:05)
--- NOTE | 2018-07-21 08:21 | ECGEPIP ---
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
--- NOTE | 2018-07-21 08:27 | ECGEPIP ---
Stationary ECG Study [facility] - ED Test Date: 2018-07-20 Pat Name: SHELBY PANTOJA Department: Room: [place] [address] Gender: F Refrigeration Technician: LAWANDA : 1965 Requested By: NAVJOT Victoria Order Number: [id number] Reading MD: Alecia Nolan Measurements Intervals [place] Rate: 113 P: 21 MT: 117 QRS: 41 QRSD: 72 T: 80 QT: 306 QTc: 421 Interpretive Statements SINUS TACHYCARDIA WITH SHORT MT INTERVAL SEPTAL MYOCARDIAL INFARCTION,PROBABLY OLD, SIMILAR 15:34 NSTTW ABNORMALITY INCREASED RATE 15:34 Electronically Signed On 07-21-2018 8:26:47 EDT by Alecia Nolan
[2018-07-21] MEDS: TICAGRELOR 90 MG TABLET (BRILINTA) PO SCH ×2 (09:00→21:22)
[2018-07-21] MEDS: ASPIRIN 81 MG CHEW TABLET PO SCH (09:00)
[2018-07-21] MEDS ORDERED: ENOXAPARIN 40 MG/0.4 ML SYRINGE (J1650) SC SCH (09:00)
[2018-07-21] MEDS: CHLORHEXIDINE GLUCONATE 0.12 % 15ML UDC (PERIDEX ORAL RINSE) MT SCH ×2 (09:00→21:00)
[2018-07-21] MEDS: METOCLOPRAMIDE INJ 10MG/2ML VIAL (J2765) IV SCH ×2 (10:00→18:04)
[2018-07-21 10:20] LABS: HEMATOCRIT 28.3 % (36.0-47.0); HEMOGLOBIN 9.7 g/dl (12.0-15.5)
[2018-07-21] MEDS ORDERED: GOLYTELY SOLN 4000 ML BTL PO ONE (10:30)
[2018-07-21] MEDS ORDERED: GOLYTELY SOLN 4000 ML BTL PO STA (11:43)
[2018-07-21] MEDS ORDERED: NS 0.45% 1,000 ML IV SCH (12:00)
--- NOTE | 2018-07-21 12:23 | CR.PDOC ---
General Date of Consultation: Jul 21, 2018 Consultation Vascular Surgery: Dr. Hoyos Gastroenterology Dr Kang. Assistant Vice President Dr Koenig HPI: 53 year old female patient currently intubated and ventilated. History is taken from the chart. The pt has h/o CAD (s/p ID and 2 EULALIA placed in June 2018 at [facility]), and multiple sclerosis, presented to ED 07/20/18 with several hours weakness, nausea, diarrhea and shortness of breath, lightheaded, and dizzy. Patient was discharged from [facility] around 1 week ago, had rib frac tures from CPR she received during her ID. Patient was noted with hypotension and infiltrates in Chest Xray and was started on therapy for suspected Pneumonia and Sepsis. Patient had hematemesis and her repeat CBC dropped, GI was consulted and pt is being followed by Dr Kang S/P emergent EGD. Nursing reports dark bloody stools as well. Vascular surgery is consulted re upper GI Bleeding. PAST MEDICAL HISTORY: 1. Multiple sclerosis 2. CAD S/P 2 drug-eluting stents on 07/11/2018 PAST SURGICAL HISTORY: cardiac catheterization 07/11/18. appendectomy SOCIAL HISTORY: Lives in [place] with her . Never smoker. No alcohol use. FAMHX: non contributory. ROS: Pt is unable to provide additional history at this time. PE: GEN: 53yoF, intubated and ventilated currently. HEENT: Normocephalic, atraumatic. Sclera are nonicteric. Conjunctiva without injection. Moist mucous membranes. CHEST: Regular rate and rhythm, +S1, +S2 LUNGS: Clear to auscultation bilaterally. No wheezes, rales, or rhonchi. ABD: Round, soft, non-tender, non-distended. EXT: Pulses 2+ bilaterally dorsalis pedis and PT. No lower extremity edema appreciated. SKIN: [place], dry, warm. Capillary refill <2sec. No rashes. CT: Diffuse reticulonodular opacities throughout both lungs. Differential diagnosis would include diffuse pneumonitis and or fibrosis. There is mild right lower lobe bronchiectasis medially with inspissated secretions and mild associated atelectasis/infiltrate. There are nondisplaced fractures of the anterior bilateral 2nd through 6th ribs. Unreviewed DD: Nick Gan MD, MD 07/20/18 1637 CXR No focal consolidation. Lines and tubes in satisfactory position. Electronically Signed by Delfin Chanel MD 07/21/2018 05:30 A A&P: 53 year old female patient currently intubated and ventilated. History is taken from the chart. The pt has h/o CAD (s/p ID and 2 EULALIA placed in June 2018 at [facility]), and multiple sclerosis, presented to ED 07/20/18 with several hours weakness, nausea, diarrhea and shortness of breath, lightheaded, and dizzy. Patient was discharged from [facility] around 1 week ago, had rib fractures from CPR she received during her ID. Patient was noted with hypotension and infiltrates in Chest Xray and was started on therapy for suspected Pneumonia and Sepsis (Patient also had elevated WBC). Patient had one episode of hematemesis and her repeat CBC dropped,GI was consulted and pt is being followed by Dr Kang. Nursing reports dark bloody stools since she is admitted. Vascular surgery is consulted re upper GI Bleeding. 1. UGI Bleeding. Gastroenterology following. Dr Kang. EGD with clot noted in stomach, plan is for additional golytely prep as per Dr Kang and possibly repeat EGD. IV Protonix. S/P PRBC x 3. Hgb 9.7. The pt is reviewed and discussed with Dr Hoyos, plan to monitor for now. If the pt has recurrent hematemesis, hypotension, continued bleeding would recommend consider mesenteric angiogram. 2. CAD/S/P ID/DESx2 07/11/18. ASA81 mg daily. Brilinta. Lipitor. Mgmt as per Primary team. 3. MS. Not on meds as outpt. 4. Possible pneumonia. IV Zosyn. mgmt as per primary team. Thank you for your consultation. We will continue to follow along with you. Vital Signs/I&O Vital Signs Date Time Temp Pulse Resp B/P (MAP) Pulse Ox O2 Delivery O2 Flow Rate FiO2 07/21/18 10:00 98.0 92 17 130/62 (84) 100 30 07/21/18 04:00 Ventilator 07/21/18 04:00 2.0 I&O- Last 24 Hours up to 6 AM 07/21/18 06:00 Intake Total 1450 ml Output Total 760 ml Balance 690 ml Laboratory Data Labs 24H Laboratory Tests 2 07/20/18 15:36: Immature Granulocyte % (Auto) 2.4, White Blood Count 18.7H, Red Blood Count 3.31L, Hemoglobin 10.3L, Hematocrit 31.0L, Mean Corpuscular Volume 93.7, Mean Corpuscular Hemoglobin 31.1, Mean Corpuscular Hemoglobin Concent 33.2, Red Cell Distribution Width 13.7, Platelet Count 635H, Neutrophils (%) (Auto) 82.7H, Lymphocytes (%) (Auto) 9.3L, Monocytes (%) (Auto) 4.2, Eosinophils (%) (Auto) 1.1, Basophils (%) (Auto) 0.3, Neutrophils # (Auto) 15.5H, Lymphocytes # (Auto) 1.7, Monocytes # (Auto) 0.8, Eosinophils # (Auto) 0.2, Basophils # (Auto) 0.1, Nucleated Red Blood Cells % (auto) 0.0 07/20/18 16:19: Anion Gap 8, Glomerular Filtration Rate > 60.0, Calcium Level 8.7, Aspartate Amino Transf (AST/SGOT) 40H, Alanine Aminotransferase (ALT/SGPT) 77, Alkaline Phosphatase 131H, Total Bilirubin 0.4, Direct Bilirubin 0.1, Total Creatine Kinase 27, Creatine Kinase MB < 1.0, Creatine Kinase MB Relative Index 3.70, Troponin I 0.06, Total Protein 6.3L, Albumin 2.4L, Albumin/Globulin Ratio 0.62L 07/20/18 17:55: Urine Color YELLOW, Urine Appearance CLOUDYH, Urine pH 5.0, Urine Specific [place] 1.039, Urine Protein 1+H, Urine Glucose (UA) NEGATIVE, Urine Ketones TRACEH, Urine Blood NEGATIVE, Urine Nitrite NEGATIVE, Urine Bilirubin 1+H, Urine Urobilinogen 2.0H, Urine Leukocyte Esterase NEGATIVE, Urine WBC (Auto) 4H, Urine RBC (Auto) 3, Urine Hyaline Casts (Auto) 0, Urine Bacteria (Auto) NEGATIVE, Urine Squamous Epithelial Cells 69, Urine Calcium Oxalate Cryst (Auto) SMALL, Urine Mucus (Auto) LARGE, Urine Sperm (Auto) 07/20/18 18:44: Total Creatine Kinase 22L, Creatine Kinase MB < 1.0, Creatine Kinase MB Relative Index 4.55H, Troponin I 0.07, QU-Hup-N-Type Natriuretic Peptide 1156H, Thyroid Stimulating Hormone (TSH) 1.590, Free Thyroxine 1.41 07/20/18 21:30: Immature Granulocyte % (Auto) 4.0H, White Blood Count 19.6H, Red Blood Count 1.78L, Hemoglobin 5.6#*L, Hematocrit 17.4L, Mean Corpuscular Volume 97.8H, Mean Corpuscular Hemoglobin 31.5, Mean Corpuscular Hemoglobin Concent 32.2, Red Cell Distribution Width 13.8, Platelet Count 502#H, Neutrophils (%) (Auto) 79.4H, Lymphocytes (%) (Auto) 11.5L, Monocytes (%) (Auto) 4.7, Eosinophils (%) (Auto) 0.2, Basophils (%) (Auto) 0.2, Neutrophils # (Auto) 15.5H, Lymphocytes # (Auto) 2.3, Monocytes # (Auto) 0.9H, Eosinophils # (Auto) 0.0, Basophils # (Auto) 0.0, Nucleated Red Blood Cells % (auto) 0.0 07/21/18 02:00: Nucleated Red Blood Cells % (auto) 0.0 07/21/18 03:00: Blood Gas Bicarbonate Standard 18.2L, Arterial Blood pH 7.352, Arterial Blood Partial Pressure CO2 30.7L, Arterial Blood Partial Pressure O2 181.3H, Arterial Blood Total CO2 17.6L, Arterial Blood HCO3 16.6L, Arterial Blood Base Excess - 7.8L, Arterial Blood Oxygen Saturation 99.5H 07/21/18 05:19: Immature Granulocyte % (Auto) 3.7H, White Blood Count 24.0H, Red Blood Count 3.51L, Hemoglobin 10.4L, Hematocrit 30.7L, Mean Corpuscular Volume 87.5, Mean Corpuscular Hemoglobin 29.6, Mean Corpuscular Hemoglobin Concent 33.9, Red Cell Distribution Width 14.6H, Platelet Count 360, Neutrophils (%) (Auto) 82.9H, Lymphocytes (%) (Auto) 7.3L, Monocytes (%) (Auto) 5.8H, Eosinophils (%) (Auto) 0.0, Basophils (%) (Auto) 0.3, Neutrophils # (Auto) 19.9H, Lymphocytes # (Auto) 1.7, Monocytes # (Auto) 1.4H, Eosinophils # (Auto) 0.0, Basophils # (Auto) 0.1, Nucleated Red Blood Cells % (auto) 0.1H, Prothrombin Time 15.9H, Prothromb Time International Ratio 1.25, Activated Partial Thromboplast Time 26.4, Anion Gap 6L, Glomerular Filtration Rate > 60.0, Blood Urea Nitrogen 30H, Creatinine 0.57, Sodium Level 141, Potassium Level 4.1, Chloride Level 113H, Carbon Dioxide Level 22, Calcium Level 6.9#L CBC/BMP Laboratory Tests 07/20/18 15:36 Red Blood Count 3.31 L, Mean Corpuscular Volume 93.7, Mean Corpuscular Hemoglobin 31.1, Mean Corpuscular Hemoglobin Concent 33.2, Red Cell Distribution Width 13.7, Neutrophils (%) (Auto) 82.7 H, Lymphocytes (%) (Auto) 9.3 L, Monocytes (%) (Auto) 4.2, Eosinophils (%) (Auto) 1.1, Basophils (%) (Auto) 0.3, Neutrophils # (Auto) 15.5 H, Lymphocytes # (Auto) 1.7, Monocytes # (Auto) 0.8, Eosinophils # (Auto) 0.2, Basophils # (Auto) 0.1 07/20/18 16:19 07/20/18 21:30 Red Blood Count 1.78 L, Mean Corpuscular Volume 97.8 H, Mean Corpuscular Hemoglobin 31.5, Mean Corpuscular Hemoglobin Concent 32.2, Red Cell Distribution Width 13.8, Neutrophils (%) (Auto) 79.4 H, Lymphocytes (%) (Auto) 11.5 L, Monocytes (%) (Auto) 4.7, Eosinophils (%) (Auto) 0.2, Basophils (%) (Auto) 0.2, Neutrophils # (Auto) 15.5 H, Lymphocytes # (Auto) 2.3, Monocytes # (Auto) 0.9 H, Eosinophils # (Auto) 0.0, Basophils # (Auto) 0.0 07/21/18 02:00 Red Blood Count 3.74 L, Mean Corpuscular Volume 90.6, Mean Corpuscular Hemoglobin 29.4, Mean Corpuscular Hemoglobin Concent 32.4, Red Cell Distribution Width 14.0 07/21/18 05:19 Red Blood Count 3.51 L, Mean Corpuscular Volume 87.5, Mean Corpuscular Hemoglobin 29.6, Mean Corpuscular Hemoglobin Concent 33.9, Red Cell Distribution Width 14.6 H, Neutrophils (%) (Auto) 82.9 H, Lymphocytes (%) (Auto) 7.3 L, Monocytes (%) (Auto) 5.8 H, Eosinophils (%) (Auto) 0.0, Basophils (%) (Auto) 0.3, Neutrophils # (Auto) 19.9 H, Lymphocytes # (Auto) 1.7, Monocytes # (Auto) 1.4 H, Eosinophils # (Auto) 0.0, Basophils # (Auto) 0.1, Calcium Level 6.9 #L 07/21/18 10:06 Microbiology Microbiology 07/20/18 Blood Culture, Received Pending 07/20/18 Blood Culture, Received Pending 07/20/18 Stool Occult Blood (GEETHA) - Final, Complete 07/21/18 MRSA Screen, Received Pending 07/21/18 Gram Stain, Received Pending 07/21/18 Sputum Culture, Received Pending 07/20/18 Respiratory Virus Panel (PCR) (GEETHA) - Final, Complete Allergies Coded Allergies: No Known Allergies (Unverified , 01/25/18) Home Medications Scheduled Amoxicillin/Potassium Clav (Amox-Clav 875-125 mg Tablet) 1 Each Tablet, 1 TAB PO BID, (Reported) STARTED 07/16/2018 Aspirin (Aspir 81) 81 Mg Tablet.dr, 81 MG PO DAILY, (Reported) Atorvastatin Calcium (Atorvastatin Calcium) 40 Mg Tablet, 40 MG PO QHS, (Reported) Calcium Carbonate (Calcium Carbonate) 600 Mg Tablet, 600 MG PO DAILY, (Reported) Cholecalciferol (Vitamin D3) (Vitamin D3) 2,000 Unit Tablet, 2,000 UNIT PO DAILY, (Reported) Potassium Chloride (Potassium Chloride) 20 Meq Packet, 20 MEQ PO BID, (Reported) Ticagrelor Base (Brilinta) 90 Mg Tablet, 90 MG PO BID, (Reported) Scheduled PRN Guaifenesin (Mucinex) 600 Mg Tab.er.12h, 600 MG PO DAILY PRN for CONGESTION, (Reported) Ipratropium/Albuterol Sulfate (Combivent Respimat 20-100 Mcg) 4 Gm Mist.inhal, 1 PUFF INH Q6H PRN for SHORTNESS OF BREATH, (Reported) Nitroglycerin (Nitroglycerin) 0.4 Mg Tab.subl, 0.4 MG SL NITRO PRN for CHEST PAIN, (Reported) Tracey Dong Jul 21, 2018 12:23
[2018-07-21] MEDS ORDERED: ROCURONIUM BROMIDE 50 MG/5 ML VIAL IV ONE (15:00)
--- NOTE | 2018-07-21 15:04 | ROOR ---
Patient Name: Star Lindsay Procedure Date: 07/21/2018 6:47 AM Date of : 1965 Age: 53 Room: ICU Gender: Female Note Status: Finalized Procedure: Upper GI endoscopy Indications: Hematemesis, Melena, Suspected upper gastrointestinal bleeding Providers: Teofilo Kang MD Referring MD: 2. Inpatient 2. Inpatient Requesting Provider: Medicines: Monitored Anesthesia Care Complications: No immediate complications. Procedure: Pre-Anesthesia Assessment: - Prior to the procedure, a History and Physical was performed, and patient medications and allergies were reviewed. The patient is competent. The risks and benefits of the procedure and the sedation options and risks were discussed with the patient. All questions were answered and informed consent was obtained. Patient identification and proposed procedure were verified by the physician, the nurse and the anesthesiologist in the procedure room. Mental Status Examination: alert and oriented. Airway Examination: normal oropharyngeal airway and neck mobility. Respiratory Examination: clear to auscultation. Prophylactic Antibiotics: The patient does not require prophylactic antibiotics. Prior Anticoagulants: The patient has taken no previous anticoagulant or antiplatelet agents. ASA Grade Assessment: IV - A patient with severe systemic disease that is a constant threat to life. After reviewing the risks and benefits, the patient was deemed in satisfactory condition to undergo the procedure. The anesthesia plan was to use monitored anesthesia care (MAC). Immediately prior to administration of medications, the patient was re-assessed for adequacy to receive sedatives. The heart rate, respiratory rate, oxygen saturations, blood pressure, adequacy of pulmonary ventilation, and response to care were monitored throughout the procedure. The physical status of the patient was re-assessed after the procedure. The Endoscope was introduced through the mouth, and advanced to the second part of duodenum. The upper GI endoscopy was accomplished without difficulty. The patient tolerated the procedure well. Findings: The Z-line was regular and was found at the gastroesophageal junction. Hematin (altered blood/tjbwsu-tlbjut-bhvp material) was found in the gastric fundus and in the gastric body, with large/ multiple clots. Fluid aspiration was performed through the scope suction channel. The amount of fluid collected was 500 mL. The fluid was opaque and thick. Ortega nets were used to remove some of the clots. The blood clots could not be cleared completely and detailed gastric examination was not possible. Normal mucosa was found at the incisura, in the gastric antrum and at the pylorus. The duodenal bulb and second portion of the duodenum were normal. Impression: - Z-line regular, at the gastroesophageal junction. - Hematin (altered blood/kstbin-jfnria-ggph material) in the gastric fundus and in the gastric body. Fluid aspiration performed. The blood clots could not be cleared completely and detailed gastric examination was not possible. - Normal mucosa was found in the incisura, in the antrum and in the pylorus. - Normal duodenal bulb and second portion of the duodenum. Recommendation: - Observe patient in ICU for ongoing care. - Patient has a contact number available for emergencies. The signs and symptoms of potential delayed complications were discussed with the patient. Return to normal activities tomorrow. Written discharge instructions were provided to the patient. - Clear liquid diet., Give golytely with intermittent doses of metoclopramide to clear the gastric clots. - Continue present medications. ( continue antiplatelet agents as per cardiology recommendations). - Give Protonix (pantoprazole): 8 mg/hr IV by continuous infusion for 1 day, then Pantoprazole 40 mg twice daily ( IV or oral depending on clinical course). - Check hemoglobin, hematocrit and electrolyte panel q 6 hours until stable. - Repeat upper endoscopy tomorrow for retreatment and depending on the symptoms and clinical response. ( if patient hemoglobin continues to drop and if notices bright red bleeding on OG aspirate after golytely, then will need repeat EGD). - Rest of the care of acute issues as per ICU team. Teofilo Kang MD Teofilo Kang MD 07/21/2018 3:04:41 PM Electronically signed by Teofilo Kang MD Number of Addenda: 0 Note Initiated On: 07/21/2018 6:47 AM Estimated Blood Loss: Estimated blood loss was minimal.
[2018-07-21 16:44] LABS: HEMATOCRIT 23.4 % (36.0-47.0); HEMOGLOBIN 8.1 g/dl (12.0-15.5)
[2018-07-21 16:47] LABS: BLOOD UREA NITROGEN 23 MG/DL (7-18); CALCIUM LEVEL 7.3 MG/DL (8.5-10.1); CARBON DIOXIDE LEVEL 26 MEQ/L (21-32); CHLORIDE LEVEL 108 MEQ/L (98-107); CREATININE FOR GFR 0.58 MG/DL (0.55-1.30); GLOMERULAR FILTRATION RATE > 60.0 (>51); GLUCOSE, FASTING 114 MG/DL (70-100); POTASSIUM SERUM 3.1 MEQ/L (3.5-5.1); SODIUM LEVEL 139 MEQ/L (136-145)
[2018-07-21 17:57] LABS: MAGNESIUM LEVEL 1.5 MG/DL (1.8-2.4)
[2018-07-21] MEDS ORDERED: KCL 20MEQ IN 100ML SWI (KRUN) 20 MEQ in APPROPRIATE DILUENT 1 EA IV ONE ×2 (18:30)
[2018-07-21] MEDS ORDERED: MAG SULF 1GM/100ML (MAG RUN) 1 GM in APPROPRIATE DILUENT 1 EA IV ONE (19:30)
[2018-07-21] MEDS: KCL 20MEQ IN 0.45NS 1000ML 1,000 ML IV SCH (20:47)
[2018-07-21] MEDS: ATORVASTATIN 20 MG TAB PO SCH (21:00)
[2018-07-21 23:36] LABS: HEMATOCRIT 26.9 % (36.0-47.0); HEMOGLOBIN 9.3 g/dl (12.0-15.5); MEAN CORPUSCULAR HGB CONC 34.6 g/dl (32.0-36.5); MEAN CORPUSCULAR VOLUME 86.8 fl (80.0-96.0); PLATELET COUNT, AUTOMATED 334 10^3/uL (150-450); WHITE BLOOD COUNT 17.4 10^3/uL (4.0-10.0)
[2018-07-21 23:59] LABS: BLOOD UREA NITROGEN 19 MG/DL (7-18); CALCIUM LEVEL 6.9 MG/DL (8.5-10.1); CARBON DIOXIDE LEVEL 24 MEQ/L (21-32); CHLORIDE LEVEL 109 MEQ/L (98-107); GLOMERULAR FILTRATION RATE > 60.0 (>51); GLUCOSE, FASTING 120 MG/DL (70-100); POTASSIUM SERUM 3.2 MEQ/L (3.5-5.1); SODIUM LEVEL 142 MEQ/L (136-145)
[2018-07-22] VITALS (139 sets, daily range): BP systolic 84–123; BP diastolic 43–70
[2018-07-22] MEDS ORDERED: KCL 20MEQ IN 100ML SWI (KRUN) 20 MEQ in APPROPRIATE DILUENT 1 EA IV ONE ×4 (00:45→12:30)
[2018-07-22] MEDS: PIPERACILLIN/TAZOBACTAM SOD 3.375 GM in D5W MINI-BAG PLUS 50 ML IV SCH ×4 (01:00→17:59)
[2018-07-22] MEDS: METOCLOPRAMIDE INJ 10MG/2ML VIAL (J2765) IV SCH ×2 (02:00→10:00)
[2018-07-22] MEDS: PANTOPRAZOLE SODIUM 40 MG in D5W 50 ML IV SCH ×5 (02:00→21:28)
[2018-07-22 04:48] LABS: BASO % 0.3 % (0.0-1.0); EOS # 0.2 10^3/uL (0.0-0.50); EOS % 1.1 % (0.0-3.0); HEMATOCRIT 25.6 % (36.0-47.0); HEMOGLOBIN 8.9 g/dl (12.0-15.5); LYMPH # 2.1 10^3/uL (1.5-4.5); LYMPH % 13.9 % (24.0-44.0); MEAN CORPUSCULAR HEMOGLOBIN 30.3 pg (27.0-33.0); MEAN CORPUSCULAR HGB CONC 34.8 g/dl (32.0-36.5); MEAN CORPUSCULAR VOLUME 87.1 fl (80.0-96.0); MONO # 1.1 10^3/uL (0.0-0.8); MONO % 7.4 % (0.0-5.0); NEUTROPHILS # 11.4 10^3/uL (1.8-7.7); NEUTROPHILS % 74.9 % (36.0-66.0); PLATELET COUNT, AUTOMATED 320 10^3/uL (150-450); RED BLOOD COUNT 2.94 10^6/uL (4.00-5.40); WHITE BLOOD COUNT 15.2 10^3/uL (4.0-10.0)
[2018-07-22 05:09] LABS: BLOOD UREA NITROGEN 17 MG/DL (7-18); CARBON DIOXIDE LEVEL 24 MEQ/L (21-32); CHLORIDE LEVEL 110 MEQ/L (98-107); CREATININE FOR GFR 0.52 MG/DL (0.55-1.30); GLOMERULAR FILTRATION RATE > 60.0 (>51); GLUCOSE, FASTING 117 MG/DL (70-100); POTASSIUM SERUM 3.3 MEQ/L (3.5-5.1); SODIUM LEVEL 140 MEQ/L (136-145)
[2018-07-22 05:15] LABS: ABG BASE EXCESS -4.4 (-2.0-2.0); ABG HCO3 18.7 MEQ/L (22.0-26.0); ABG O2 SATURATION 98.4 % (95.0-99.0); ABG PARTIAL PRESSURE CO2 27.7 mmHg (35.0-45.0); ABG PARTIAL PRESSURE O2 131.6 mmHg (75.0-100.0); ABG STANDARD HCO3 20.8 MEQ/L (22.0-26.0); ABG TOTAL CO2 19.5 MEQ/L (22.0-29.0); ABG pH (ARTERIAL) 7.447 UNITS (7.350-7.450)
[2018-07-22] MEDS ORDERED: ROCURONIUM BROMIDE 50 MG/5 ML VIAL IV ONE (06:00)
[2018-07-22 06:07] LABS: MAGNESIUM LEVEL 1.9 MG/DL (1.8-2.4)
[2018-07-22] MEDS: NOREPINEPHRINE BITARTRATE 8 MG in D5W 492 ML IV SCH ×4 (07:40→23:35)
--- NOTE | 2018-07-22 07:41 | REP ---
Portable chest, 06:46 a.m., single AP semi upright view: Comparison is 07/21/2018. Lung pelayo remain clear. Cardiac size remains normal. There are no pleural effusions. The right IJ central venous catheter, endotracheal tube and nasogastric tube in satisfactory positions, unchanged. Impression: There is no interval change. Electronically Signed by Nick Martinez MD 07/22/2018 07:33 A
[2018-07-22] MEDS: TICAGRELOR 90 MG TABLET (BRILINTA) PO SCH ×2 (08:28→21:28)
[2018-07-22] MEDS: ASPIRIN 81 MG CHEW TABLET PO SCH (08:28)
[2018-07-22] MEDS: VANCOMYCIN HCL 1,000 MG, VIAL MATE ADAPTER 1 EACH in D5W 250 ML IV SCH ×2 (08:28→16:48)
[2018-07-22] MEDS: CHLORHEXIDINE GLUCONATE 0.12 % 15ML UDC (PERIDEX ORAL RINSE) MT SCH (09:00)
[2018-07-22] MEDS ORDERED: VANCOMYCIN HCL 500 MG in D5W MINI-BAG PLUS 100 ML IV ONE (10:00)
--- NOTE | 2018-07-22 10:59 | IPNPDOC ---
Subjective Date Seen The patient was seen on 07/22/18. Subjective Chief Complaint/HPI None Assessment /Plan Plan/VTE VTE Prophylaxis Ordered?: Yes VS, I&O, 24H, Fishbone Vital Signs/I&O Vital Signs Date Time Temp Pulse Resp B/P (MAP) Pulse Ox O2 Delivery O2 Flow Rate FiO2 07/22/18 10:17 66 20 92/53 (66) 100 40 07/22/18 08:04 97.8 07/22/18 04:00 Ventilator 07/21/18 04:00 2.0 I&O- Last 24 Hours up to 6 AM 07/22/18 06:00 Intake Total 903.5 ml Output Total 2150 ml Balance -1246.5 ml Laboratory Data 24H LABS Laboratory Tests 2 07/21/18 16:06: Anion Gap 5L, Glomerular Filtration Rate > 60.0, Blood Urea Nitrogen 23H, Creatinine 0.58, Sodium Level 139, Potassium Level 3.1#L, Chloride Level 108H, Carbon Dioxide Level 26, Calcium Level 7.3L, Magnesium Level 1.5L 07/21/18 23:24: Anion Gap 9, Glomerular Filtration Rate > 60.0, Blood Urea Nitrogen 19H, Creatinine 0.50L, Sodium Level 142, Potassium Level 3.2L, Chloride Level 109H, Carbon Dioxide Level 24, Calcium Level 6.9L, Nucleated Red Blood Cells % (auto) 0.1H 07/22/18 04:31: Anion Gap 6L, Glomerular Filtration Rate > 60.0, Blood Urea Nitrogen 17, Creatinine 0.52L, Sodium Level 140, Potassium Level 3.3L, Chloride Level 110H, Carbon Dioxide Level 24, Calcium Level 7.0L, Magnesium Level 1.9, Nucleated Red Blood Cells % (auto) 0.0, Immature Granulocyte % (Auto) 2.4, White Blood Count 15.2H, Red Blood Count 2.94L, Hemoglobin 8.9L, Hematocrit 25.6L, Mean Corpuscular Volume 87.1, Mean Corpuscular Hemoglobin 30.3, Mean Corpuscular Hemoglobin Concent 34.8, Red Cell Distribution Width 15.4H, Platelet Count 320, Neutrophils (%) (Auto) 74.9H, Lymphocytes (%) (Auto) 13.9L, Monocytes (%) (Auto) 7.4H, Eosinophils (%) (Auto) 1.1, Basophils (%) (Auto) 0.3, Neutrophils # (Auto) 11.4H, Lymphocytes # (Auto) 2.1, Monocytes # (Auto) 1.1H, Eosinophils # (Auto) 0.2, Basophils # (Auto) 0.0 07/22/18 05:06: Blood Gas Bicarbonate Standard 20.8L, Arterial Blood pH 7.447, Arterial Blood Partial Pressure CO2 27.7L, Arterial Blood Partial Pressure O2 131.6H, Arterial Blood Total CO2 19.5L, Arterial Blood HCO3 18.7L, Arterial Blood Base Excess - 4.4L, Arterial Blood Oxygen Saturation 98.4 CBC/BMP Laboratory Tests 07/21/18 15:58 07/21/18 16:06 Calcium Level 7.3 L 07/21/18 23:24 Calcium Level 6.9 L, Red Blood Count 3.10 L, Mean Corpuscular Volume 86.8, Mean Corpuscular Hemoglobin 30.0, Mean Corpuscular Hemoglobin Concent 34.6, Red Cell Distribution Width 15.5 H 07/22/18 04:31 Calcium Level 7.0 L, Red Blood Count 2.94 L, Mean Corpuscular Volume 87.1, Mean Corpuscular Hemoglobin 30.3, Mean Corpuscular Hemoglobin Concent 34.8, Red Cell Distribution Width 15.4 H, Neutrophils (%) (Auto) 74.9 H, Lymphocytes (%) (Auto) 13.9 L, Monocytes (%) (Auto) 7.4 H, Eosinophils (%) (Auto) 1.1, Basophils (%) (Auto) 0.3, Neutrophils # (Auto) 11.4 H, Lymphocytes # (Auto) 2.1, Monocytes # (Auto) 1.1 H, Eosinophils # (Auto) 0.2, Basophils # (Auto) 0.0 Microbiology Microbiology 07/20/18 Blood Culture - Preliminary, Resulted No growth after 24 hours . All specim... 07/20/18 Blood Culture - Preliminary, Resulted No growth after 24 hours . All specim... 07/20/18 Stool Occult Blood (GEETHA) - Final, Complete 07/21/18 MRSA Screen, Received Pending 07/21/18 Gram Stain - Final, Resulted 07/21/18 Sputum Culture - Preliminary, Resulted Staphylococcus Aureus 4/9/19 Respiratory Virus Panel (PCR) (GEETHA) - Final, Complete ANJUM STARR MD Jul 22, 2018 10:59
[2018-07-22] MEDS: PERCOCET 5MG/325MG TAB PO PRN (11:34)
--- NOTE | 2018-07-22 11:45 | CCN ---
DATE: 07/22/2018 The patient was seen and examined this morning during bedside rounds. Yesterday morning the patient had a second endoscopy done to evaluate for possible source of bleeding. She had a large clot noted which was incompletely evacuated. There was no active bleeding sources noted and she did not appear to have any active bleeding. She did have episodes of melena yesterday, was also given GoLYTELY in anticipation for another possible endoscopy; however, her hemoglobin had remained stable and she did not have endoscopy yesterday evening. Yesterday night the patient was given an additional 1 unit of PRBCs and her repeat hemoglobin showed an appropriate response. This morning she has not had further melena overnight and there was no output from her OG tube which is to gravity. The patient was able to be weaned off of Levophed overnight. PHYSICAL EXAMINATION: Temperature 98.6, pulse 68, respirations 18, blood pressure 107/56, O2 sat 100% on the ventilator at 30% FiO2. Ins 1.3 liters, outs 1.9 liters. General: Patient is intubated and sedated; however, is responsive and following commands appropriately. She denies any pain except for some discomfort in her throat. HEENT: Normocephalic, atraumatic. Pupils are equal and reactive to light. Mucous membranes are moist. There is a right IJ triple lumen in place. Cardiac: Regular rate and rhythm. Normal S1-S2. Unable to appreciate any murmurs. Pulmonary: Some coarse ventilator breath sounds bilaterally with occasional rhonchi. Abdomen is soft, nontender, mildly distended. Bowel sounds are present. Extremities: There is no significant edema noted in the bilateral lower extremities. LABORATORY DATA: WBC of 15.2, hemoglobin 8.9, platelets 320. Chemistries sodium 140, potassium 3.3, chloride 110, bicarb 24, BUN 17, creatinine 0.52, glucose 179, magnesium 1.9. ABG pH 7.447, pCO2 of 27.7, pO2 of 131.6. Chest x-ray this morning shows ET tube in position. Right IJ line in place with the tip in the superior vena cava (SVC). OG tube in place coursing below the diaphragm. There is no focal opacities or infiltrates. Sputum was positive for staph aureus. There is no sensitivities yet. ASSESSMENT/PLAN: Patient is a 53-year female with a history of multiple sclerosis not on any medications and coronary artery disease with a recent cardiac arrest and KS, status post two drug-eluting stents, who complained of dizziness, nausea and weakness and dyspnea. The patient was hypotensive, was started on Levophed for vasopressor support. She was then noted to have episodes of hematemesis and melena, and an acute drop in her hemoglobin and hematocrit. Patient with an acute GI bleed likely in the setting of her dual antiplatelet therapy. She was started on Protonix drip and given 3 units of PRBCs emergently. She had an emergent endoscopy done yesterday early in the morning which did not locate any active source of bleeding, however, she had a large clot in the fundus of her stomach. She had a repeat endoscopy done later in the morning which did show the clot still and no evidence of active bleeding. The clot was able to be partially evacuated at that time. Yesterday afternoon she was given additional 1 unit of PRBCs. Neuro: History of multiple sclerosis not on any home medications had reportedly been stable and not and did not have any flares for many years. The patient is intubated and sedated with propofol and she is responsive and following commands appropriately. Will hold her sedation this morning for a weaning trial for plan for possible extubation. Continue with fentanyl p.r.n. for pain and Versed for agitation. Cardiovascular: History of coronary disease with recent cardiac arrest in the setting of an acute KS, status post PCI and two drug-eluting stents. The patient presented with shock, likely hypovolemic shock, with a possible component of sepsis given her leukocytosis and possible aspiration pneumonia versus bronchiolitis and inspissated mucus secretions. She was initially on Levophed for blood pressure support; however, had been able to be significantly weaned down after blood transfusions. She was weaned off of the Levophed overnight. The patient's EKG did not show any acute changes and her troponins have been negative. Will followup results for echo. Continue with her aspirin and Brilinta and continue with atorvastatin. The patient has a higher threshold for transfusion given her recent KS. Pulmonary: The patient was intubated for her endoscopy. She has remained intubated as there was a plan for possible repeat endoscopy this morning, however after discussion with GI given her stable hemoglobin and hematocrit , repeat endoscopy is on hold. Therefore will perform a weaning trial today for possible extubation if tolerated. The patient did have a CT chest on admission which showed some reticular nodular tree and bud opacities bilaterally more the lower lobes, with some evidence of atelectasis and inspissated secretions in her right lower lobe. She does have bilateral rib fractures after her cardiac arrest and she did have pain due to the rib fractures, which has likely been contributing to her atelectasis and poor cough. The patient did have leukocytosis on admission and she was started on broad-spectrum antibiotics for possible pneumonia secondary to aspiration. She was on Zosyn and the vancomycin was discontinued; however, her sputum culture grew staph aureus. Therefore will restart with vancomycin and follow-up the final sensitivities and deescalate depending on her sensitivities. GI: The patient presented with an acute upper GI bleed likely in the setting of her dual antiplatelet therapy. The patient has had two endoscopies by GI now with no source of active bleeding. Appreciate GI consult and recommendations. Repeat endoscopy is on hold for now. Will continue with Protonix drip. Continue the patient n.p.o. depending on GI recommendations. Continue trend hemoglobin and hematocrit. She is now status post 4 units of PRBCs and her hemoglobin has remained stable. The patient has a triple lumen as well as large bore IVs in place. Will likely DC her triple lumen once she is extubated and maintain large bore IVs. Will make sure she has active type and screen. Renal. The patient had some mild acute kidney injury (SUZY) which is improving. Will continue with IV fluids. The patient is on half NS with potassium chloride as she was also noted to be hypokalemic requiring potassium supplementation. She also had hypomagnesemia requiring magnesium supplementation. Will continue to monitor electrolytes and replete as needed. Deep vein thrombosis (DVT) prophylaxis with sequential compression devices (SCD) and thromboembolic deterrent stockings (TEDS). FULL CODE. Total critical care time spent, not including procedures, approximately 45 minutes. MTDD
[2018-07-22] MEDS ORDERED: NOREPINEPHRINE BITARTRATE 8 MG in D5W 492 ML IV SCH (12:00)
[2018-07-22] MEDS ORDERED: MAG SULF 1GM/100ML (MAG RUN) 1 GM in APPROPRIATE DILUENT 1 EA IV ONE (12:00)
[2018-07-22] MEDS ORDERED: NS 1,000 ML IV ONE (12:30)
[2018-07-22 13:29] LABS: HEMATOCRIT 21.5 % (36.0-47.0); HEMOGLOBIN 7.5 g/dl (12.0-15.5)
[2018-07-22] MEDS: KCL 20MEQ IN 0.45NS 1000ML 1,000 ML IV SCH (13:29)
--- NOTE | 2018-07-22 14:31 | IPNPDOC ---
Subjective Date Seen The patient was seen on 07/22/18. Subjective Chief Complaint/HPI Patient is stable, no more melena or GI bleed. Offers no new complaints General: Reports: Normal Appetite; Denies: Chills, Night Sweats, Fatigue, Malaise Constitutional: Denies: Chills, Fever, Night Sweats Eyes: Denies: Pain, Vision change ENT: Denies: Head Aches, Ear Pain, Dysphagia Skin: Denies: Rash, Lesions, Breakdown Pulmonary: Denies: Dyspnea, Cough Cardiovascular: Denies: Chest Pain, Palpitations, Orthopnea, Paroxysmal Noc. Dyspnea, Lt Headedness Gastrointestinal: Denies: Nausea, Vomiting, Abdominal Pain, Diarrhea, Constipation Genitourinary: Denies: Dysuria, Frequency, Incontinence, Retention Hematologic: Denies: Bruising, Bleeding Excessively Musculoskeletal: Denies: Neck Pain, Back Pain, Joint Pain, Muscle Pain, Spasms Neurological: Denies: Weakness, Numbness, Change in speech, Confusion Psych: Reports: Mood Normal; Denies: Depression, Memory Issues Objective Physical Examination General Exam: Positive: Alert, Cooperative Eye Exam: Positive: PERRLA, Conjunctiva & lids normal ENT Exam: Positive: Atraumatic Neck Exam: Positive: Supple, JVD Chest Exam: Positive: Clear to auscultation Heart Exam: Positive: Rate Normal, Normal S1, Normal S2 Telemetry: Positive: No significant arrhythmia Abdomen Exam: Positive: Normal bowel sounds, Soft Female Exam: Positive: Nl Ext Genitalia Extremity Exam: Positive: Normal pulses Skin Exam: Positive: Nl turgor and temperature Neuro Exam: Positive: Normal Gait, Normal Speech, Cranial Nerves 3-12 NL, Re flexes 2+ Psych Exam: Positive: Mental status NL, Mood NL, Oriented x 3 Assessment /Plan Problems (1) GI bleeding Problem Text: Patient is a 53-year female with a history of multiple sclerosis not on any medications and coronary artery disease with a recent cardiac arrest and VA, status post two drug-eluting stents, who complained of dizziness, nausea and weakness and dyspnea. The patient was hypotensive, was started on Levophed for vasopressor support. She was then noted to have episodes of hematemesis and melena, and an acute drop in her hemoglobin and hematocrit. Patient with an acute GI bleed likely in the setting of her dual antiplatelet therapy. She was started on Protonix drip and given 3 units of PRBCs emergently. She had an emergent endoscopy done yesterday early in the morning which did not locate any active source of bleeding, however, she had a large clot in the fundus of her stomach. She had a repeat endoscopy done later in the morning which did show the clot still and no evidence of active bleeding. The clot was able to be partially evacuated at that time. Yesterday afternoon she was given additional 1 unit of PRBCs. We'll monitor patient's H&H and if it is less than 7. She will be transfused again H&H every 8 hours. Further, as per Dr. velasquez (2) STEMI (ST elevation myocardial infarction) Status: Acute Problem Text: History of coronary disease with recent cardiac arrest in the setting of an acute VA, status post PCI and two drug-eluting stents. The patient presented with shock, likely hypovolemic shock, with a possible component of sepsis given her leukocytosis and possible aspiration pneumonia versus bronchiolitis and inspissated mucus secretions. She was initially on Levophed for blood pressure support; however, had been able to be significantly weaned down after blood transfusions. She was weaned off of the Levophed overnight. The patient's EKG did not show any acute changes and her troponins have been negative. Will followup results for echo. Continue with her aspirin and Brilinta and continue with atorvastatin. The patient has a higher threshold for transfusion given her recent VA. (3) Sepsis Problem Text: The patient did have a CT chest on admission which showed some reticular nodular tree and bud opacities bilaterally more the lower lobes, with some evidence of atelectasis and inspissated secretions in her right lower lobe. She does have bilateral rib fractures after her cardiac arrest and she did have pain due to the rib fractures, which has likely been contributing to her atelectasis and poor cough. The patient did have leukocytosis on admission and she was started on broad-spectrum antibiotics for possible pneumonia secondary to aspiration. She was on Zosyn and the vancomycin was discontinued; however, her sputum culture grew staph aureus. Therefore will restart with vancomycin and follow-up the final sensitivities and deescalate depending on her sensitivities. (4) Pneumonia Status: Acute Problem Text: As above (5) Hypokalemia Status: Acute Response to Treatment: Stable Problem Text: Potassium chloride 20 mEq IV, given repeated Levsin and Plan/VTE VTE Prophylaxis Ordered?: No VS, I&O, 24H, Fishbone Vital Signs/I&O Vital Signs Date Time Temp Pulse Resp B/P (MAP) Pulse Ox O2 Delivery O2 Flow Rate FiO2 07/22/18 14:14 100 2.0 07/22/18 13:14 20 40 07/22/18 12:46 66 90/53 (65) 07/22/18 08:04 97.8 07/22/18 04:00 Ventilator I&O- Last 24 Hours up to 6 AM 07/22/18 06:00 Intake Total 903.5 ml Output Total 2150 ml Balance -1246.5 ml Laboratory Data 24H LABS Laboratory Tests 2 07/21/18 16:06: Anion Gap 5L, Glomerular Filtration Rate > 60.0, Blood Urea Nitrogen 23H, Creatinine 0.58, Sodium Level 139, Potassium Level 3.1#L, Chloride Level 108H, Carbon Dioxide Level 26, Calcium Level 7.3L, Magnesium Level 1.5L 07/21/18 23:24: Anion Gap 9, Glomerular Filtration Rate > 60.0, Blood Urea Nitrogen 19H, Creatinine 0.50L, Sodium Level 142, Potassium Level 3.2L, Chloride Level 109H, Carbon Dioxide Level 24, Calcium Level 6.9L, Nucleated Red Blood Cells % (auto) 0.1H 07/22/18 04:31: Anion Gap 6L, Glomerular Filtration Rate > 60.0, Blood Urea Nitrogen 17, Creatinine 0.52L, Sodium Level 140, Potassium Level 3.3L, Chloride Level 110H, Carbon Dioxide Level 24, Calcium Level 7.0L, Magnesium Level 1.9, Nucleated Red Blood Cells % (auto) 0.0, Immature Granulocyte % (Auto) 2.4, White Blood Count 15.2H, Red Blood Count 2.94L, Hemoglobin 8.9L, Hematocrit 25.6L, Mean Corpuscular Volume 87.1, Mean Corpuscular Hemoglobin 30.3, Mean Corpuscular Hemoglobin Concent 34.8, Red Cell Distribution Width 15.4H, Platelet Count 320, Neutrophils (%) (Auto) 74.9H, Lymphocytes (%) (Auto) 13.9L, Monocytes (%) (Auto) 7.4H, Eosinophils (%) (Auto) 1.1, Basophils (%) (Auto) 0.3, Neutrophils # (Auto) 11.4H, Lymphocytes # (Auto) 2.1, Monocytes # (Auto) 1.1H, Eosinophils # (Auto) 0.2, Basophils # (Auto) 0.0 07/22/18 05:06: Blood Gas Bicarbonate Standard 20.8L, Arterial Blood pH 7.447, Arterial Blood Partial Pressure CO2 27.7L, Arterial Blood Partial Pressure O2 131.6H, Arterial Blood Total CO2 19.5L, Arterial Blood HCO3 18.7L, Arterial Blood Base Excess - 4.4L, Arterial Blood Oxygen Saturation 98.4 CBC/BMP Laboratory Tests 07/21/18 15:58 07/21/18 16:06 Calcium Level 7.3 L 07/21/18 23:24 Calcium Level 6.9 L, Red Blood Count 3.10 L, Mean Corpuscular Volume 86.8, Mean Corpuscular Hemoglobin 30.0, Mean Corpuscular Hemoglobin Concent 34.6, Red Cell Distribution Width 15.5 H 07/22/18 04:31 Calcium Level 7.0 L, Red Blood Count 2.94 L, Mean Corpuscular Volume 87.1, Mean Corpuscular Hemoglobin 30.3, Mean Corpuscular Hemoglobin Concent 34.8, Red Cell Distribution Width 15.4 H, Neutrophils (%) (Auto) 74.9 H, Lymphocytes (%) (Auto) 13.9 L, Monocytes (%) (Auto) 7.4 H, Eosinophils (%) (Auto) 1.1, Basophils (%) (Auto) 0.3, Neutrophils # (Auto) 11.4 H, Lymphocytes # (Auto) 2.1, Monocytes # (Auto) 1.1 H, Eosinophils # (Auto) 0.2, Basophils # (Auto) 0.0 07/22/18 13:02 Microbiology Microbiology 07/20/18 Blood Culture - Preliminary, Resulted No growth after 24 hours . All specim... 07/20/18 Blood Culture - Preliminary, Resulted No growth after 24 hours . All specim... 07/20/18 Stool Occult Blood (GEETHA) - Final, Complete 07/21/18 MRSA Screen - Final, Complete 07/21/18 Gram Stain - Final, Resulted 07/21/18 Sputum Culture - Preliminary, Resulted Staphylococcus Aureus 07/20/18 Respiratory Virus Panel (PCR) (GEETHA) - Final, Complete ANJUM STARR MD Jul 22, 2018 14:31
--- NOTE | 2018-07-22 16:00 | PHACANCOPD ---
PHARMACY VANCOMYCIN DOSING Pt Demographics Demographics Patient Age:53 , Weight:74.090 , Gender: female Adjusted Body Weight Date: 07/20/18, Adjusted Body Weight: Kg Vancomycin Vancomycin indication: HCAP Vancomycin Target Ranges: 15-20 mcg/ml Vancomycin Load Y/N: Yes Load Dose Date Time Vancomycin Load Dose: 1500mg Date:07/20/18 Time:2100 Vancomycin Dose Date: 07/20/18. Current Vancomycin Dose: [1g IV Q12H] Intermittent Dosing?: No Labs Micro Microbiology 07/20/18 Blood Culture - Preliminary, Resulted No growth after 24 hours . All specim... 07/20/18 Blood Culture - Preliminary, Resulted No growth after 24 hours . All specim... 07/20/18 Stool Occult Blood (GEETHA) - Final, Complete 07/21/18 MRSA Screen - Final, Complete 07/21/18 Gram Stain - Final, Resulted 07/21/18 Sputum Culture - Preliminary, Resulted Staphylococcus Aureus 07/20/18 Respiratory Virus Panel (PCR) (GEETHA) - Final, Complete Creatinine Clearance Date:07/20/18.Est Creatinine Clearance: [~79ml/min]. Assessment and Plan Maintaining Current Dose?: No Reason for dose change: Other Pharmacist Note Pharmacist Note 07/22/18: Vancomycin is being re-started today for the treatment of HCAP 2/2 preliminary sputum cultures growing staph aureus (final sensitivities pending). The patient was discharged from [facility] a little over a week ago, and symptoms had worsened despite oral augmentin therapy on discharge. On admit the patient's pressures were low and the patient was started on pressors with an elevated BUN. Since admit, his pressures have improved as has his BUN; therefore, we will restart the patient with a 1500mg loading dose followed by an increased maintenance regimen of 1g IV Q8H - aiming for a goal trough of 15- 20mcg/ml. A vancomycin trough level has been scheduled to be drawn tomorrow at 0800. We will continue to monitor and make dose adjustments if needed. Date: 07/20/18. Pharmacist note: Day #1 empiric vancomycin therapy initiated with a 1500mg loading dose, followed by a maintenance regimen of 1g IV Q12H for the treatment of HCAP - aiming for a goal trough of 15-20mcg/ml. WBC, pulse, and RR are currently elevated. The patient is afebrile and pulse ox is currently WNL on room air. Blood cultures are pending. No PMH of MRSA or vanco use here at [facility]. We will continue to monitor the patient's renal function and schedule a trough level when deemed appropriate. ZOYA ULLOA PHARMACY Jul 22, 2018 16:00
[2018-07-22 19:06] LABS: HEMATOCRIT 22.9 % (36.0-47.0); HEMOGLOBIN 7.7 g/dl (12.0-15.5)
[2018-07-22] MEDS: ATORVASTATIN 20 MG TAB PO SCH (21:30)
--- NOTE | 2018-07-22 21:35 | ECHO ---
DATE OF PROCEDURE: 07/21/2018 AGE: 53 GENDER: Female HEIGHT: 62 inches WEIGHT: 163 pounds BODY SURFACE AREA: 1.76 m2 PATIENT LOCATION: Inpatient, ICU, room 3207 REFERRING PHYSICIAN: Candice Wilson INDICATION: Dyspnea. (patient is on mechanical ventilator) 2-D MEASUREMENTS: RV: 3.2 cm LV: 3.6 cm Septum: 0.8 cm Posterior wall: 0.9 cm Aortic root: 2.4 cm LA: 2.7 cm LVEF: 75% DOPPLER MEASUREMENTS: AV: 1.7 m/s LVOT: 1.3 m/s LVOT diameter: 2.0 cm MV-E: 65, A: 87, EA ratio: 0.7 Early mitral deceleration time: 229 ms E prime: 8, A prime: 12, E/E prime ratio: 8 PV: 1.0 m/s Pulmonary artery acceleration time: 127 ms PASP: 22 mmHg IVC: 1.2 cm COMMENTS Normal sinus rhythm without intraventricular conduction disturbance. Normal left ventricular size, wall thickness and hyperkinetic wall motion. Normal left atrial size with Doppler evidence suggesting a degree of impaired left ventricle (LV) diastolic function, but currently normal estimated mean left atrial pressure. Normal right heart chamber sizes, wall motion and estimated pulmonary arterial pressure. Normal inferior vena cava (IVC) size and collapse against an elevated central venous pressure. Normal appearing and functioning valvular structures. Normal aortic root size. No apparent intracardiac mass or pericardial effusion.
[2018-07-22 21:57] LABS: BLOOD UREA NITROGEN 9 MG/DL (7-18); CALCIUM LEVEL 7.3 MG/DL (8.5-10.1); CARBON DIOXIDE LEVEL 24 MEQ/L (21-32); CHLORIDE LEVEL 114 MEQ/L (98-107); CREATININE FOR GFR 0.56 MG/DL (0.55-1.30); GLOMERULAR FILTRATION RATE > 60.0 (>51); GLUCOSE, FASTING 128 MG/DL (70-100); POTASSIUM SERUM 3.3 MEQ/L (3.5-5.1); SODIUM LEVEL 143 MEQ/L (136-145)
[2018-07-22] MEDS: ACETAMINOPHEN TAB 650MG DOSE (2X325MG) PO PRN (22:46)
[2018-07-23] VITALS (37 sets, daily range): BP systolic 84–124; BP diastolic 47–60
[2018-07-23] MEDS: PIPERACILLIN/TAZOBACTAM SOD 3.375 GM in D5W MINI-BAG PLUS 50 ML IV SCH ×5 (00:56→23:18)
[2018-07-23] MEDS: VANCOMYCIN HCL 1,000 MG, VIAL MATE ADAPTER 1 EACH in D5W 250 ML IV SCH ×3 (01:45→17:21)
[2018-07-23] MEDS: PANTOPRAZOLE SODIUM 40 MG in D5W 50 ML IV SCH ×2 (02:09→06:56)
[2018-07-23] MEDS: KCL 20MEQ IN 0.45NS 1000ML 1,000 ML IV SCH ×2 (03:30→12:17)
[2018-07-23 05:07] LABS: BASO % 0.5 % (0.0-1.0); EOS # 0.3 10^3/uL (0.0-0.50); EOS % 3.7 % (0.0-3.0); HEMATOCRIT 23.4 % (36.0-47.0); LYMPH # 1.2 10^3/uL (1.5-4.5); LYMPH % 13.3 % (24.0-44.0); MEAN CORPUSCULAR HEMOGLOBIN 30.4 pg (27.0-33.0); MEAN CORPUSCULAR HGB CONC 34.2 g/dl (32.0-36.5); MONO # 0.6 10^3/uL (0.0-0.8); NEUTROPHILS # 6.5 10^3/uL (1.8-7.7); NEUTROPHILS % 73.8 % (36.0-66.0); PLATELET COUNT, AUTOMATED 309 10^3/uL (150-450); RED BLOOD COUNT 2.63 10^6/uL (4.00-5.40); WHITE BLOOD COUNT 8.8 10^3/uL (4.0-10.0)
[2018-07-23 05:29] LABS: ALBUMIN 1.9 GM/DL (3.2-5.2); ALT/SGPT 21 U/L (12-78); BILIRUBIN,TOTAL 0.6 MG/DL (0.2-1.0); BLOOD UREA NITROGEN 5 MG/DL (7-18); CALCIUM LEVEL 7.6 MG/DL (8.5-10.1); CARBON DIOXIDE LEVEL 26 MEQ/L (21-32); CHLORIDE LEVEL 113 MEQ/L (98-107); CREATININE FOR GFR 0.49 MG/DL (0.55-1.30); GLOMERULAR FILTRATION RATE > 60.0 (>51); GLUCOSE, FASTING 104 MG/DL (70-100); POTASSIUM SERUM 3.6 MEQ/L (3.5-5.1); SODIUM LEVEL 143 MEQ/L (136-145); TOTAL PROTEIN 5.1 GM/DL (6.4-8.2)
--- NOTE | 2018-07-23 08:36 | REP ---
Portable chest, 07:10 a.m., single AP semi upright view: Comparison 07/22/2018. The lung pelayo are clear. Cardiac size is normal. The tere, mediastinum, skeletal structures are unremarkable. The right IJ central venous catheter remains in satisfactory position. The endotracheal tube and nasogastric tube have been removed. Electronically Signed by Nick Martinez MD 07/23/2018 08:27 A
[2018-07-23] MEDS: ASPIRIN 81 MG CHEW TABLET PO SCH (09:04)
[2018-07-23] MEDS: TICAGRELOR 90 MG TABLET (BRILINTA) PO SCH ×2 (09:04→21:32)
[2018-07-23] MEDS: PERCOCET 5MG/325MG TAB PO PRN (09:06)
[2018-07-23] MEDS: PANTOPRAZOLE 40MG INJ (PROTONIX) (C9113) IV SCH ×2 (09:45→21:32)
--- NOTE | 2018-07-23 12:00 | IPNPDOC ---
Date Seen The patient was seen on 07/23/18. Progress Note Interval history: Patient had EGD x 2 in this hospitalization, last on 07/21/2018 at 7 AM. ( for detailed reports please see separate operative notes). Last EGD showed large blood clot in fundus and body of stomach, and despite large volume sterile water lavage, the clots are not cleared. But noted no bright red blood. Patient received total 4 units of transfusion and last was on 07/21/2018. Patient was successfully extubated and being treated for possible sepsis from pneumonia with IV antibiotics. Patient denies any further episodes of vomiting but having intermittent dark stools. Patient blood pressure is borderline and requiring intermittently levophed. Exam: Vitals: labile BP and currently on levophed ( very low rate). afebrile, no tachycardia. Chest: bilateral air entry, no crepitations. Abdomen: Soft, non distended. normal bowel sounds. Extremities: No pedal edema. Labs: Reviewed. Impression: -- Acute post hemorrhagic anemia in patient on dual antiplatelet agents for rec ent AMI and Cardiac stent placement. Currently no overt active Gi bleeding. Recommendations: -- Full liquid diet as tolerated for now.. -- Closely monitor Vitals and CVP. Management of levophed drip as per critical care team. -- Monitor Hemoglobin and hematocrit ( do serial labs every 6-8 hours depending on clinical symptoms). Transfuse as needed to keep hemoglobin around 8-9gm/ dL. ( due to recent h/o UT need to monitor for fluid over load status, CVP and crepitations. -- Switch pantoprazole IV drip to intermittent IV pushes. ( Pantoprazole 40 mg IV, twice daily). -- Avoid NSAIDs -- To continue the dual anti-platelet agents as the benefits outweighs risks. Discussed the risks and benefits extensively with patient and her and they agree with continuing the anti-platelet agents. -- Depending on clinical course and if further rectal bleeding will schedule for GI bleeding scan first and then proceed with EGD (repeat with Colonoscopy if needed based on the Bleeding scan). Otherwise will continue to monitor closely and manage conservatively. -- Gi will closely follow. Plan of care discussed with patient, her and all questions answered. Recommendations communicated to primary team. VS, I&O, 24H, Fishbone Laboratory Data CBC/BMP Laboratory Tests 07/22/18 13:02 07/22/18 18:15 Calcium Level 7.3 L 07/23/18 04:46 Calcium Level 7.6 L, Red Blood Count 2.63 L, Mean Corpuscular Volume 89.0, Mean Corpuscular Hemoglobin 30.4, Mean Corpuscular Hemoglobin Concent 34.2, Red Cell Distribution Width 15.7 H, Neutrophils (%) (Auto) 73.8 H, Lymphocytes (%) (Auto) 13.3 L, Monocytes (%) (Auto) 7.0 H, Eosinophils (%) (Auto) 3.7 H, Basophils (%) (Auto) 0.5, Neutrophils # (Auto) 6.5, Lymphocytes # (Auto) 1.2 L, Monocytes # (Auto) 0.6, Eosinophils # (Auto) 0.3, Basophils # (Auto) 0.0, Aspartate Amino Transf (AST/SGOT) 10, Alanine Aminotransferase (ALT/SGPT) 21, Alkaline Phosphatase 99, Total Bilirubin 0.6, Total Protein 5.1 L, Albumin 1.9 #L SYED TOLENTINO MD Jul 23, 2018 12:00
[2018-07-23] MEDS: GI COCKTAIL 50ML BTL(HYOSCYAMINE/MAALOX/LIDOCAINE VISCOUS)(1:3:1) PO PRN (12:18)
[2018-07-23 12:44] LABS: HEMATOCRIT 24.9 % (36.0-47.0); HEMOGLOBIN 8.3 g/dl (12.0-15.5)
--- NOTE | 2018-07-23 13:57 | IPNPDOC ---
Subjective Date Seen The patient was seen on 07/23/18. Subjective Chief Complaint/HPI Patient comfortably lying in bed." No new complaints S on Levophed of 1 mcg/kg as well as a progressive H&H is stable General: Reports: Normal Appetite; Denies: Chills, Night Sweats, Fatigue, Malaise Constitutional: Denies: Chills, Fever, Night Sweats Eyes: Denies: Pain, Vision change ENT: Denies: Head Aches, Ear Pain, Dysphagia Skin: Denies: Rash, Lesions, Breakdown Pulmonary: Denies: Dyspnea, Cough Cardiovascular: Denies: Chest Pain, Palpitations, Orthopnea, Paroxysmal Noc. Dyspnea, Lt Headedness Gastrointestinal: Denies: Nausea, Vomiting, Abdominal Pain, Diarrhea, Constipation Genitourinary: Denies: Dysuria, Frequency, Incontinence, Retention Hematologic: Denies: Bruising, Bleeding Excessively Musculoskeletal: Denies: Neck Pain, Back Pain, Joint Pain, Muscle Pain, Spasms Neurological: Denies: Weakness, Numbness, Change in speech, Confusion Psych: Reports: Mood Normal; Denies: Depression, Memory Issues Objective Physical Examination General Exam: Positive: Alert, Cooperative Eye Exam: Positive: PERRLA, Conjunctiva & lids normal ENT Exam: Positive: Atraumatic Neck Exam: Positive: Supple, JVD Chest Exam: Positive: Clear to auscultation Heart Exam: Positive: Rate Normal, Normal S1, Normal S2 Telemetry: Positive: No significant arrhythmia Abdomen Exam: Positive: Normal bowel sounds, Soft Female Exam: Positive: Nl Ext Genitalia Extremity Exam: Positive: Normal pulses Skin Exam: Positive: Nl turgor and temperature Neuro Exam: Positive: Normal Gait, Normal Speech, Cranial Nerves 3-12 NL, Reflexes 2+ Psych Exam: Positive: Mental status NL, Mood NL, Oriented x 3 Assessment /Plan Problems (1) GI bleeding Problem Text: Patient is a 53-year female with a history of multiple sclerosis not on any medications and coronary artery disease with a recent cardiac arrest and IA, status post two drug-eluting stents, who complained of dizziness, nausea and weakness and dyspnea. The patient was hypotensive, was started on Levophed for vasopressor support. She was then noted to have episodes of hematemesis and melena, and an acute drop in her hemoglobin and hematocrit. Patient with an acute GI bleed likely in the setting of her dual antiplatelet therapy. She was started on Protonix drip and given 3 units of PRBCs emergently. She had an emergent endoscopy done yesterday early in the morning which did not locate any active source of bleeding, however, she had a large clot in the fundus of her stomach. She had a repeat endoscopy done later in the morning which did show the clot still and no evidence of active bleeding. The clot was able to be p artially evacuated at that time. Yesterday afternoon she was given additional 1 unit of PRBCs. We'll monitor patient's H&H, maintain Hgb above 8, as per GI recommendations Conservative management as per Dr. Sam (2) STEMI (ST elevation myocardial infarction) Status: Acute Problem Text: History of coronary disease with recent cardiac arrest in the setting of an acute IA, status post PCI and two drug-eluting stents. The patient presented with shock, likely hypovolemic shock, with a possible component of sepsis given her leukocytosis and possible aspiration pneumonia versus bronchiolitis and inspissated mucus secretions. She was initially on Levophed for blood pressure support; however, had been able to be significantly weaned down after blood transfusions. She was weaned off of the Levophed overnight. The patient's EKG did not show any acute changes and her troponins have been negative. Will followup results for echo. Continue with her aspirin and Brilinta and continue with atorvastatin. The patient has a higher threshold for transfusion given her recent IA. (3) Sepsis Problem Text: The patient did have a CT chest on admission which showed some reticular nodular tree and bud opacities bilaterally more the lower lobes, with some evidence of atelectasis and inspissated secretions in her right lower lobe. She does have bilateral rib fractures after her cardiac arrest and she did have pain due to the rib fractures, which has likely been contributing to her atelectasis and poor cough. The patient did have leukocytosis on admission and she was started on broad-spectrum antibiotics for possible pneumonia secondary to aspiration. She was on Zosyn and the vancomycin was discontinued; however, her sputum culture grew staph aureus. Therefore will restart with vancomycin and follow-up the final sensitivities and deescalate depending on her sensitivities. (4) Pneumonia Status: Acute Problem Text: As above (5) Hypokalemia Status: Acute Response to Treatment: Stable Problem Text: Potassium chloride 20 mEq IV, given repeated Levsin and Plan/VTE VTE Prophylaxis Ordered?: Yes VS, I&O, 24H, Fishbone Vital Signs/I&O Vital Signs Date Time Temp Pulse Resp B/P (MAP) Pulse Ox O2 Delivery O2 Flow Rate FiO2 07/23/18 12:30 76 19 97/52 (67) 97 07/23/18 12:00 98.5 07/23/18 09:36 2.0 40 07/22/18 04:00 Ventilator I&O- Last 24 Hours up to 6 AM 07/23/18 06:00 Intake Total 5898.9 ml Output Total 4450 ml Balance 1448.9 ml Laboratory Data 24H LABS Laboratory Tests 2 07/22/18 18:15: Anion Gap 5L, Glomerular Filtration Rate > 60.0, Blood Urea Nitrogen 9, Creatinine 0.56, Sodium Level 143, Potassium Level 3.3L, Chloride Level 114H, Carbon Dioxide Level 24, Calcium Level 7.3L 07/23/18 04:46: Anion Gap 4L, Glomerular Filtration Rate > 60.0, Blood Urea Nitrogen 5L, Creatinine 0.49L, Sodium Level 143, Potassium Level 3.6, Chloride Level 113H, Carbon Dioxide Level 26, Calcium Level 7.6L, Immature Granulocyte % (Auto) 1.7, White Blood Count 8.8, Red Blood Count 2.63L, Hemoglobin 8.0L, Hematocrit 23.4L, Mean Corpuscular Volume 89.0, Mean Corpuscular Hemoglobin 30.4, Mean Corpuscular Hemoglobin Concent 34.2, Red Cell Distribution Width 15.7H, Platelet Count 309, Neutrophils (%) (Auto) 73.8H, Lymphocytes (%) (Auto) 13.3L, Monocytes (%) (Auto) 7.0H, Eosinophils (%) (Auto) 3.7H, Basophils (%) (Auto) 0.5, Neutrophils # (Auto) 6.5, Lymphocytes # (Auto) 1.2L, Monocytes # (Auto) 0.6, Eosinophils # (Auto) 0.3, Basophils # (Auto) 0.0, Nucleated Red Blood Cells % (auto) 0.2H, Aspartate Amino Transf (AST/SGOT) 10, Alanine Aminotransferase (ALT/SGPT) 21, Alkaline Phosphatase 99, Total Bilirubin 0.6, Total Protein 5.1L, Albumin 1.9#L, Albumin/Globulin Ratio 0.59L 07/23/18 07:49: Vancomycin Level Trough 16.9 CBC/BMP Laboratory Tests 07/22/18 18:15 Calcium Level 7.3 L 07/23/18 04:46 Calcium Level 7.6 L, Red Blood Count 2.63 L, Mean Corpuscular Volume 89.0, Mean Corpuscular Hemoglobin 30.4, Mean Corpuscular Hemoglobin Concent 34.2, Red Cell Distribution Width 15.7 H, Neutrophils (%) (Auto) 73.8 H, Lymphocytes (%) (Auto) 13.3 L, Monocytes (%) (Auto) 7.0 H, Eosinophils (%) (Auto) 3.7 H, Basophils (%) (Auto) 0.5, Neutrophils # (Auto) 6.5, Lymphocytes # (Auto) 1.2 L, Monocytes # (Auto) 0.6, Eosinophils # (Auto) 0.3, Basophils # (Auto) 0.0, Aspartate Amino Transf (AST/SGOT) 10, Alanine Aminotransferase (ALT/SGPT) 21, Alkaline Phosphatase 99, Total Bilirubin 0.6, Total Protein 5.1 L, Albumin 1.9 #L 07/23/18 12:27 Microbiology Microbiology 07/20/18 Blood Culture - Preliminary, Resulted No Growth after 48 hours. All Specime... 07/20/18 Blood Culture - Preliminary, Resulted No Growth after 48 hours. All Specime... 07/20/18 Stool Occult Blood (GEETHA) - Final, Complete 07/21/18 MRSA Screen - Final, Complete 07/21/18 Gram Stain - Final, Complete 07/21/18 Sputum Culture - Final, Complete Staphylococcus Aureus 07/20/18 Respiratory Virus Panel (PCR) (GEETHA) - Final, Complete ANJUM STARR MD Jul 23, 2018 13:57
[2018-07-23] MEDS: ATORVASTATIN 20 MG TAB PO SCH (21:31)
[2018-07-23 23:04] LABS: HEMATOCRIT 23.4 % (36.0-47.0); HEMOGLOBIN 7.8 g/dl (12.0-15.5)
[2018-07-23] MEDS: NOREPINEPHRINE BITARTRATE 8 MG in D5W 492 ML IV SCH (23:18)
[2018-07-24] VITALS (63 sets, daily range): BP systolic 80–117; BP diastolic 41–67; PULSE 71
[2018-07-24] MEDS: VANCOMYCIN HCL 1,000 MG, VIAL MATE ADAPTER 1 EACH in D5W 250 ML IV SCH ×3 (00:33→16:06)
[2018-07-24] MEDS: KCL 20MEQ IN 0.45NS 1000ML 1,000 ML IV SCH ×2 (03:07→16:06)
[2018-07-24] MEDS: PIPERACILLIN/TAZOBACTAM SOD 3.375 GM in D5W MINI-BAG PLUS 50 ML IV SCH ×4 (05:14→23:56)
[2018-07-24 05:38] LABS: BASO % 0.4 % (0.0-1.0); EOS # 0.3 10^3/uL (0.0-0.50); EOS % 5.7 % (0.0-3.0); HEMATOCRIT 23.7 % (36.0-47.0); HEMOGLOBIN 7.8 g/dl (12.0-15.5); MEAN CORPUSCULAR HEMOGLOBIN 29.8 pg (27.0-33.0); MEAN CORPUSCULAR HGB CONC 32.9 g/dl (32.0-36.5); MEAN CORPUSCULAR VOLUME 90.5 fl (80.0-96.0); MONO # 0.4 10^3/uL (0.0-0.8); MONO % 8.2 % (0.0-5.0); NEUTROPHILS # 3.3 10^3/uL (1.8-7.7); NEUTROPHILS % 64.7 % (36.0-66.0); PLATELET COUNT, AUTOMATED 331 10^3/uL (150-450); RED BLOOD COUNT 2.62 10^6/uL (4.00-5.40); WHITE BLOOD COUNT 5.1 10^3/uL (4.0-10.0)
[2018-07-24 06:03] LABS: BLOOD UREA NITROGEN 5 MG/DL (7-18); CALCIUM LEVEL 7.8 MG/DL (8.5-10.1); CARBON DIOXIDE LEVEL 27 MEQ/L (21-32); CHLORIDE LEVEL 109 MEQ/L (98-107); CREATININE FOR GFR 0.52 MG/DL (0.55-1.30); GLOMERULAR FILTRATION RATE > 60.0 (>51); GLUCOSE, FASTING 93 MG/DL (70-100); POTASSIUM SERUM 3.8 MEQ/L (3.5-5.1); SODIUM LEVEL 143 MEQ/L (136-145)
--- NOTE | 2018-07-24 07:55 | REP ---
Portable chest x-ray: Single view. History: Intubated patient. Comparison study: July 23, 2018. Findings: EKG monitoring electrodes overlie the chest. There is hazy opacity in the bases bilaterally consistent with small bilateral pleural effusions. This is a new finding. Cardiomediastinal silhouette is unchanged and unremarkable. A right internal jugular central venous catheter is seen in place with its tip in the expected location of the superior vena cava. No infiltrate is seen. Electronically Signed by Renato Montero MD 07/24/2018 07:48 A
[2018-07-24] MEDS: GI COCKTAIL 50ML BTL(HYOSCYAMINE/MAALOX/LIDOCAINE VISCOUS)(1:3:1) PO PRN (09:15)
[2018-07-24] MEDS: TICAGRELOR 90 MG TABLET (BRILINTA) PO SCH ×2 (09:15→20:04)
[2018-07-24] MEDS: PANTOPRAZOLE 40MG INJ (PROTONIX) (C9113) IV SCH ×2 (09:15→20:04)
[2018-07-24] MEDS: ASPIRIN 81 MG CHEW TABLET PO SCH (09:15)
[2018-07-24] MEDS: PERCOCET 5MG/325MG TAB PO PRN ×2 (12:01→20:04)
--- NOTE | 2018-07-24 12:42 | IPNPDOC ---
Subjective Date Seen The patient was seen on 07/24/18. Subjective Chief Complaint/HPI Scot feels much better today lying in bed in no distress General: Reports: Normal Appetite; Denies: Chills, Night Sweats, Fatigue, Malaise Constitutional: Denies: Chills, Fever, Night Sweats Eyes: Denies: Pain, Vision change ENT: Denies: Head Aches, Ear Pain, Dysphagia Skin: Denies: Rash, Lesions, Breakdown Pulmonary: Denies: Dyspnea, Cough Cardiovascular: Denies: Chest Pain, Palpitations, Orthopnea, Paroxysmal Noc. Dyspnea, Lt Headedness Gastrointestinal: Denies: Nausea, Vomiting, Abdominal Pain, Diarrhea, Constipation Genitourinary: Denies: Dysuria, Frequency, Incontinence, Retention Hematologic: Denies: Bruising, Bleeding Excessively Musculoskeletal: Denies: Neck Pain, Back Pain, Joint Pain, Muscle Pain, Spasms Neurological: Denies: Weakness, Numbness, Change in speech, Confusion Psych: Reports: Mood Normal; Denies: Depression, Memory Issues Objective Physical Examination General Exam: Positive: Alert, Cooperative Eye Exam: Positive: PERRLA, Conjunctiva & lids normal ENT Exam: Positive: Atraumatic Neck Exam: Positive: Supple, JVD Chest Exam: Positive: Clear to auscultation Heart Exam: Positive: Rate Normal, Normal S1, Normal S2 Telemetry: Positive: No significant arrhythmia Abdomen Exam: Positive: Normal bowel sounds, Soft Female Exam: Positive: Nl Ext Genitalia Extremity Exam: Positive: Normal pulses Skin Exam: Positive: Nl turgor and temperature Neuro Exam: Positive: Normal Gait, Normal Speech, Cranial Nerves 3-12 NL, Reflexes 2+ Psych Exam: Positive: Mental status NL, Mood NL, Oriented x 3 Assessment /Plan Problems (1) GI bleeding Problem Text: Patient is a 53-year female with a history of multiple sclerosis not on any medications and coronary artery disease with a recent cardiac arrest and MO, status post two drug-eluting stents, who complained of dizziness, nausea and weakness and dyspnea. The patient was hypotensive, was started on Levophed for vasopressor support. She was then noted to have episodes of hematemesis and melena, and an acute drop in her hemoglobin and hematocrit. Patient with an acute GI bleed likely in the setting of her dual antiplatelet therapy. She was started on Protonix drip and given 3 units of PRBCs emergently. She had an emergent endoscopy done yesterday early in the morning which did not locate any active source of bleeding, however, she had a large clot in the fundus of her stomach. She had a repeat endoscopy done later in the morning which did show the clot still and no evidence of active bleeding. The clot was able to be partially evacuated at that time. Yesterday afternoon she was given additional 1 unit of PRBCs. Patient's H&H is holding it 7.8. We'll continue monitoring patient's hemoglobin and lists if it's okay with Dr. velasquez, we'll transfuse 1 unit of PRBC to increase hemoglobin to 8. Otherwise, patient is clinically stable in no apparent distress (2) STEMI (ST elevation myocardial infarction) Status: Acute Problem Text: History of coronary disease with recent cardiac arrest in the setting of an acute MO, status post PCI and two drug-eluting stents. The patient presented with shock, likely hypovolemic shock, with a possible component of sepsis given her leukocytosis and possible aspiration pneumonia versus bronchiolitis and inspissated mucus secretions. She was initially on Levophed for blood pressure support; however, had been able to be significantly weaned down after blood transfusions. She was weaned off of the Levophed overnight. The patient's EKG did not show any acute changes and her troponins have been negative. Will followup results for echo. Continue with her aspirin and Brilinta and continue with atorvastatin. The patient has a higher threshold for transfusion given her recent MO. (3) Sepsis Problem Text: The patient did have a CT chest on admission which showed some reticular nodular tree and bud opacities bilaterally more the lower lobes, with some evidence of atelectasis and inspissated secretions in her right lower lobe. She does have bilateral rib fractures after her cardiac arrest and she did have pain due to the rib fractures, which has likely been contributing to her atelectasis and poor cough. The patient did have leukocytosis on admission and she was started on broad-spectrum antibiotics for possible pneumonia secondary to aspiration. She was on Zosyn and the vancomycin was discontinued; however, her sputum culture grew staph aureus. Therefore will restart with vancomycin and follow-up the final sensitivities and deescalate depending on her sensitivities. (4) Pneumonia Status: Acute Problem Text: As above (5) Hypokalemia Status: Resolved Response to Treatment: Stable Problem Text: Resolved Plan/VTE VTE Prophylaxis Ordered?: Yes VS, I&O, 24H, Fishbone Vital Signs/I&O Vital Signs Date Time Temp Pulse Resp B/P (MAP) Pulse Ox O2 Delivery O2 Flow Rate FiO2 07/24/18 12:01 97.9 74 20 101/54 95 07/23/18 09:36 2.0 40 07/22/18 04:00 Ventilator I&O- Last 24 Hours up to 6 AM 07/24/18 06:00 Intake Total 4434.0 ml Output Total 4550 ml Balance -116.0 ml Laboratory Data 24H LABS Laboratory Tests 2 07/24/18 05:13: Immature Granulocyte % (Auto) 1.0, White Blood Count 5.1, Red Blood Count 2.62L, Hemoglobin 7.8L, Hematocrit 23.7L, Mean Corpuscular Volume 90.5, Mean Corpuscular Hemoglobin 29.8, Mean Corpuscular Hemoglobin Concent 32.9, Red Cell Distribution Width 15.5H, Platelet Count 331, Neutrophils (%) (Auto) 64.7, Lymphocytes (%) (Auto) 20.0L, Monocytes (%) (Auto) 8.2H, Eosinophils (%) (Auto) 5.7H, Basophils (%) (Auto) 0.4, Neutrophils # (Auto) 3.3, Lymphocytes # (Auto) 1.0L, Monocytes # (Auto) 0.4, Eosinophils # (Auto) 0.3, Basophils # (Auto) 0.0, Nucleated Red Blood Cells % (auto) 0.0, Anion Gap 7L, Glomerular Filtration Rate > 60.0, Blood Urea Nitrogen 5L, Creatinine 0.52L, Sodium Level 143, Potassium Level 3.8, Chloride Level 109H, Carbon Dioxide Level 27, Calcium Level 7.8L CBC/BMP Laboratory Tests 07/23/18 22:54 07/24/18 05:13 Red Blood Count 2.62 L, Mean Corpuscular Volume 90.5, Mean Corpuscular Hemoglobin 29.8, Mean Corpuscular Hemoglobin Concent 32.9, Red Cell Distribution Width 15.5 H, Neutrophils (%) (Auto) 64.7, Lymphocytes (%) (Auto) 20.0 L, Monocytes (%) (Auto) 8.2 H, Eosinophils (%) (Auto) 5.7 H, Basophils (%) (Auto) 0.4, Neutrophils # (Auto) 3.3, Lymphocytes # (Auto) 1.0 L, Monocytes # (Auto) 0.4, Eosinophils # (Auto) 0.3, Basophils # (Auto) 0.0, Calcium Level 7.8 L Microbiology Microbiology 07/20/18 Blood Culture - Preliminary, Resulted No Growth after 72 hours. All specime... 07/20/18 Blood Culture - Preliminary, Resulted No Growth after 72 hours. All specime... 07/20/18 Stool Occult Blood (GEETHA) - Final, Complete 07/21/18 MRSA Screen - Final, Complete 07/21/18 Gram Stain - Final, Complete 07/21/18 Sputum Culture - Final, Complete Staphylococcus Aureus 07/20/18 Respiratory Virus Panel (PCR) (GEETHA) - Final, Complete ANJUM STARR MD Jul 24, 2018 12:42
--- NOTE | 2018-07-24 19:30 | IPNPDOC ---
Date Seen The patient was seen on 07/24/18. Progress Note Interval history: Patient reports no Gi symptoms except some bloating for which she received GI cocktail. Patient had one watery dark stool, small amount. Patient hemoglobin is overall stable with levels fluctuating between 7.8 - 8.0 and CVP around 5-7 ( as per nurse). Patient was started on another unit of blood transfusion. Patient is noted have whitish phlegm along with cough. Exam: Vitals: Borderline BP and currently on levophed ( very low rate). afebrile, no tachycardia. Chest: bilateral air entry, No crepitations. Abdomen: Soft, non distended. normal bowel sounds. Extremities: right leg more swollen than left leg which patient report is chronic finding ( due to her MS she has some weakness in right lower extremity). Labs: Reviewed. Impression: -- Acute post hemorrhagic anemia in patient on dual antiplatelet agents for recent AMI and Cardiac stent placement. Currently no overt active GI bleeding, stable H/H and Normal BUN/ Cr. ( one dark stool could be related to GI hanna ktail). -- right leg edema ( compared to left lower limb). Recommendations: -- Full liquid diet for today and advance as tolerated tomorrow. -- Closely monitor Vitals and CVP. Management of levophed drip as per critical care team. -- Monitor Hemoglobin and hematocrit ( do serial labs every 6-8 hours depending on clinical symptoms). Transfuse as needed to keep hemoglobin around 8-9gm/ dL. ( due to recent h/o LA need to monitor for fluid over load status, CVP and crepitations. -- When patient is tolerating oral soft/ solid foods then to switch pantoprazole IV to Oral 40mg twice daily. 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 -- Avoid NSAIDs -- To continue the dual anti-platelet agents as the benefits outweighs risks. Discussed the risks and benefits extensively with patient and her and they agree with continuing the anti-platelet agents. -- In view of the assymmetrical leg swelling, will obtain US doppler of bilateral lower extremities for ruling out DVT. -- PT and OT as tolerated. -- Depending on clinical course and if further bleeding will schedule for GI bleeding scan first and then proceed with EGD. Otherwise will continue to monitor closely and manage conservatively. -- GI will follow. Plan of care discussed with patient, her and all questions answered. Recommendations communicated to primary team. VS, I&O, 24H, Fishbone Laboratory Data CBC/BMP Laboratory Tests 07/23/18 22:54 07/24/18 05:13 SYED TOLENTINO MD Jul 24, 2018 19:30
[2018-07-24] MEDS: ATORVASTATIN 20 MG TAB PO SCH (20:04)
[2018-07-24] MEDS: NOREPINEPHRINE BITARTRATE 8 MG in D5W 492 ML IV SCH (23:56)
[2018-07-25] VITALS (54 sets, daily range): BP systolic 77–131; BP diastolic 42–66; PULSE 62–69
[2018-07-25] MEDS: VANCOMYCIN HCL 1,000 MG, VIAL MATE ADAPTER 1 EACH in D5W 250 ML IV SCH ×3 (00:57→16:43)
[2018-07-25] MEDS: KCL 20MEQ IN 0.45NS 1000ML 1,000 ML IV SCH ×2 (05:24→15:46)
[2018-07-25] MEDS: PIPERACILLIN/TAZOBACTAM SOD 3.375 GM in D5W MINI-BAG PLUS 50 ML IV SCH ×4 (05:24→23:25)
[2018-07-25 05:47] LABS: BASO # 0.1 10^3/uL (0.0-0.2); BASO % 0.9 % (0.0-1.0); EOS # 0.4 10^3/uL (0.0-0.50); EOS % 6.8 % (0.0-3.0); HEMATOCRIT 30.5 % (36.0-47.0); LYMPH # 1.2 10^3/uL (1.5-4.5); LYMPH % 22.8 % (24.0-44.0); MEAN CORPUSCULAR HEMOGLOBIN 30.2 pg (27.0-33.0); MEAN CORPUSCULAR HGB CONC 33.1 g/dl (32.0-36.5); MEAN CORPUSCULAR VOLUME 91.3 fl (80.0-96.0); MONO # 0.6 10^3/uL (0.0-0.8); MONO % 11.1 % (0.0-5.0); NEUTROPHILS # 3.1 10^3/uL (1.8-7.7); NEUTROPHILS % 57.5 % (36.0-66.0); PLATELET COUNT, AUTOMATED 397 10^3/uL (150-450); RED BLOOD COUNT 3.34 10^6/uL (4.00-5.40); WHITE BLOOD COUNT 5.3 10^3/uL (4.0-10.0)
[2018-07-25 05:52] LABS: HEMOGLOBIN 10.1 g/dl (12.0-15.5)
[2018-07-25 06:01] LABS: BLOOD UREA NITROGEN 5 MG/DL (7-18); CARBON DIOXIDE LEVEL 27 MEQ/L (21-32); CHLORIDE LEVEL 108 MEQ/L (98-107); GLOMERULAR FILTRATION RATE > 60.0 (>51); GLUCOSE, FASTING 95 MG/DL (70-100); POTASSIUM SERUM 4.2 MEQ/L (3.5-5.1); SODIUM LEVEL 141 MEQ/L (136-145)
[2018-07-25] MEDS: PANTOPRAZOLE 40MG INJ (PROTONIX) (C9113) IV SCH ×2 (08:20→20:36)
[2018-07-25] MEDS: ASPIRIN 81 MG CHEW TABLET PO SCH (08:20)
[2018-07-25] MEDS: TICAGRELOR 90 MG TABLET (BRILINTA) PO SCH ×2 (08:20→20:35)
[2018-07-25] MEDS: PERCOCET 5MG/325MG TAB PO PRN (08:27)
--- NOTE | 2018-07-25 10:05 | IPNPDOC ---
Subjective Date Seen The patient was seen on 07/25/18. Subjective Chief Complaint/HPI Patient lying down in bed, still on a levophed 1 mcg/kg Patient feels much better, a lot more energy General: Reports: Normal Appetite; Denies: Chills, Night Sweats, Fatigue, Malaise Constitutional: Denies: Chills, Fever, Night Sweats Eyes: Denies: Pain, Vision change ENT: Denies: Head Aches, Ear Pain, Dysphagia Skin: Denies: Rash, Lesions, Breakdown Pulmonary: Denies: Dyspnea, Cough Cardiovascular: Denies: Chest Pain, Palpitations, Orthopnea, Paroxysmal Noc. Dyspnea, Lt Headedness Gastrointestinal: Denies: Nausea, Vomiting, Abdominal Pain, Diarrhea, Constipation Genitourinary: Denies: Dysuria, Frequency, Incontinence, Retention Hematologic: Denies: Bruising, Bleeding Excessively Musculoskeletal: Denies: Neck Pain, Back Pain, Joint Pain, Muscle Pain, Spasms Neurological: Denies: Weakness, Numbness, Change in speech, Confusion Psych: Reports: Mood Normal; Denies: Depression, Memory Issues Objective Physical Examination General Exam: Positive: Alert, Cooperative Eye Exam: Positive: PERRLA, Conjunctiva & lids normal ENT Exam: Positive: Atraumatic Neck Exam: Positive: Supple, JVD Chest Exam: Positive: Clear to auscultation Heart Exam: Positive: Rate Normal, Normal S1, Normal S2 Telemetry: Positive: No significant arrhythmia Abdomen Exam: Positive: Normal bowel sounds, Soft Female Exam: Positive: Nl Ext Genitalia Extremity Exam: Positive: Normal pulses Skin Exam: Positive: Nl turgor and temperature Neuro Exam: Positive: Normal Gait, Normal Speech, Cranial Nerves 3-12 NL, Reflexes 2+ Psych Exam: Positive: Mental status NL, Mood NL, Oriented x 3 Assessment /Plan Problems (1) GI bleeding Problem Text: Patient is a 53-year female with a history of multiple sclerosis not on any medications and coronary artery disease with a recent cardiac arrest and MO, status post two drug-eluting stents, who complained of dizziness, nausea and weakness and dyspnea. The patient was hypotensive, was started on Levophed for vasopressor support. She was then noted to have episodes of hematemesis and melena, and an acute drop in her hemoglobin and hematocrit. Patient with an acute GI bleed likely in the setting of her dual antiplatelet therapy. She was started on Protonix drip and given 3 units of PRBCs emergently. She had an emergent endoscopy done yesterday early in the morning which did not locate any active source of bleeding, however, she had a large clot in the fundus of her stomach. She had a repeat endoscopy done later in the morning which did show the clot still and no evidence of active bleeding. The clot was able to be partially evacuated at that time. Yesterday afternoon she was given additional 1 unit of PRBCs. Patient's H&H is holding it 7.8. We'll continue monitoring patient's hemoglobin and lists if it's okay with Dr. velasquez, we'll transfuse 1 unit of PRBC to increase hemoglobin to 8. Possibly advance diet to regular diet by GI today (2) STEMI (ST elevation myocardial infarction) Status: Acute Problem Text: History of coronary disease with recent cardiac arrest in the setting of an acute MO, status post PCI and two drug-eluting stents. The patient presented with shock, likely hypovolemic shock, with a possible component of sepsis given her leukocytosis and possible aspiration pneumonia versus bronchiolitis and inspissated mucus secretions. She was initially on Levophed for blood pressure support; however, had been able to be significantly weaned down after blood transfusions. She was weaned off of the Levophed overnight. The patient's EKG did not show any acute changes and her troponins have been negative. Will followup results for echo. Continue with her aspirin and Brilinta and continue with atorvastatin. The patient has a higher threshold for transfusion given her recent MO. Still on Levophed for hypotension, Trying to wean off Levophed today. Further, as per critical care (3) Sepsis Problem Text: The patient did have a CT chest on admission which showed some reticular nodular tree and bud opacities bilaterally more the lower lobes, with some evidence of atelectasis and inspissated secretions in her right lower lobe. She does have bilateral rib fractures after her cardiac arrest and she did have pain due to the rib fractures, which has likely been contributing to her atelectasis and poor cough. The patient did have leukocytosis on admission and she was started on broad-spectrum antibiotics for possible pneumonia secondary to aspiration. She was on Zosyn and the vancomycin was discontinued; however, her sputum culture grew staph aureus. The patient is on Vanco and Zosyn. Continue IV fluids. Continue Levophed for pressure support (4) Pneumonia Status: Acute Problem Text: Chest x-ray done, report pending Venous Doppler pending, but there is no evidence of any swelling of the right lower extremity. On examination (5) Hypokalemia Status: Resolved Response to Treatment: Stable Problem Text: Resolved Plan/VTE VTE Prophylaxis Ordered?: Yes VS, I&O, 24H, Fishbone Vital Signs/I&O Vital Signs Date Time Temp Pulse Resp B/P (MAP) Pulse Ox O2 Delivery O2 Flow Rate FiO2 07/25/18 08:27 70 16 105/55 07/25/18 04:01 98.8 97 07/24/18 12:00 Room Air 07/23/18 09:36 2.0 40 I&O- Last 24 Hours up to 6 AM 07/25/18 06:00 Intake Total 3409.7 ml Output Total 3750 ml Balance -340.3 ml Laboratory Data 24H LABS Laboratory Tests 2 07/25/18 05:25: Immature Granulocyte % (Auto) 0.9, White Blood Count 5.3, Red Blood Count 3.34L, Hemoglobin 10.1#L, Hematocrit 30.5L, Mean Corpuscular Volume 91.3, Mean Corpuscular Hemoglobin 30.2, Mean Corpuscular Hemoglobin Concent 33.1, Red Cell Distribution Width 15.9H, Platelet Count 397, Neutrophils (%) (Auto) 57.5, Lymphocytes (%) (Auto) 22.8L, Monocytes (%) (Auto) 11.1H, Eosinophils (%) (Auto) 6.8H, Basophils (%) (Auto) 0.9, Neutrophils # (Auto) 3.1, Lymphocytes # (Auto) 1.2L, Monocytes # (Auto) 0.6, Eosinophils # (Auto) 0.4, Basophils # (Auto) 0.1, Nucleated Red Blood Cells % (auto) 0.0, Anion Gap 6L, Glomerular Filtration Rate > 60.0, Blood Urea Nitrogen 5L, Creatinine 0.60, Sodium Level 141, Potassium Level 4.2, Chloride Level 108H, Carbon Dioxide Level 27, Calcium Level 8.0L CBC/BMP Laboratory Tests 07/25/18 05:25 Red Blood Count 3.34 L, Mean Corpuscular Volume 91.3, Mean Corpuscular Hemoglobin 30.2, Mean Corpuscular Hemoglobin Concent 33.1, Red Cell Distribution Width 15.9 H, Neutrophils (%) (Auto) 57.5, Lymphocytes (%) (Auto) 22.8 L, Monocytes (%) (Auto) 11.1 H, Eosinophils (%) (Auto) 6.8 H, Basophils (%) (Auto) 0.9, Neutrophils # (Auto) 3.1, Lymphocytes # (Auto) 1.2 L, Monocytes # (Auto) 0.6, Eosinophils # (Auto) 0.4, Basophils # (Auto) 0.1, Calcium Level 8.0 L Microbiology Microbiology 07/20/18 Blood Culture - Preliminary, Resulted No Growth after 72 hours. All specime... 07/20/18 Blood Culture - Preliminary, Resulted No Growth after 72 hours. All specime... 07/20/18 Stool Occult Blood (GEETHA) - Final, Complete 07/21/18 MRSA Screen - Final, Complete 07/21/18 Gram Stain - Final, Complete 07/21/18 Sputum Culture - Final, Complete Staphylococcus Aureus 07/20/18 Respiratory Virus Panel (PCR) (GEETHA) - Final, Complete ANJUM STARR MD Jul 25, 2018 10:05
[2018-07-25] MEDS: GI COCKTAIL 50ML BTL(HYOSCYAMINE/MAALOX/LIDOCAINE VISCOUS)(1:3:1) PO PRN (10:33)
[2018-07-25] MEDS: ATORVASTATIN 20 MG TAB PO SCH (20:35)
[2018-07-26] VITALS (70 sets, daily range): BP systolic 76–119; BP diastolic 42–65
[2018-07-26] MEDS: VANCOMYCIN HCL 1,000 MG, VIAL MATE ADAPTER 1 EACH in D5W 250 ML IV SCH ×3 (01:47→20:50)
[2018-07-26 05:04] LABS: BASO # 0.1 10^3/uL (0.0-0.2); BASO % 0.9 % (0.0-1.0); EOS # 0.4 10^3/uL (0.0-0.50); HEMATOCRIT 33.7 % (36.0-47.0); HEMOGLOBIN 11.1 g/dl (12.0-15.5); LYMPH % 12.1 % (24.0-44.0); MEAN CORPUSCULAR HEMOGLOBIN 30.3 pg (27.0-33.0); MEAN CORPUSCULAR HGB CONC 32.9 g/dl (32.0-36.5); MEAN CORPUSCULAR VOLUME 92.1 fl (80.0-96.0); MONO # 0.8 10^3/uL (0.0-0.8); MONO % 9.5 % (0.0-5.0); NEUTROPHILS # 5.8 10^3/uL (1.8-7.7); NEUTROPHILS % 71.4 % (36.0-66.0); PLATELET COUNT, AUTOMATED 477 10^3/uL (150-450); RED BLOOD COUNT 3.66 10^6/uL (4.00-5.40)
[2018-07-26 05:11] LABS: BLOOD UREA NITROGEN 6 MG/DL (7-18); CALCIUM LEVEL 8.1 MG/DL (8.5-10.1); CARBON DIOXIDE LEVEL 27 MEQ/L (21-32); CHLORIDE LEVEL 108 MEQ/L (98-107); CREATININE FOR GFR 0.67 MG/DL (0.55-1.30); GLOMERULAR FILTRATION RATE > 60.0 (>51); GLUCOSE, FASTING 102 MG/DL (70-100); POTASSIUM SERUM 4.1 MEQ/L (3.5-5.1); SODIUM LEVEL 142 MEQ/L (136-145)
[2018-07-26] MEDS: PIPERACILLIN/TAZOBACTAM SOD 3.375 GM in D5W MINI-BAG PLUS 50 ML IV SCH ×4 (05:34→23:28)
[2018-07-26] MEDS: NOREPINEPHRINE BITARTRATE 8 MG in D5W 492 ML IV SCH ×3 (05:50→23:33)
[2018-07-26] MEDS: KCL 20MEQ IN 0.45NS 1000ML 1,000 ML IV SCH (05:50)
[2018-07-26] MEDS: PANTOPRAZOLE 40MG INJ (PROTONIX) (C9113) IV SCH ×2 (08:37→20:50)
[2018-07-26] MEDS: TICAGRELOR 90 MG TABLET (BRILINTA) PO SCH ×2 (08:37→20:50)
[2018-07-26] MEDS: ASPIRIN 81 MG CHEW TABLET PO SCH (08:37)
--- NOTE | 2018-07-26 09:04 | IPN ---
DATE: 07/26/2018 Star is seen in intensive care unit (ICU) while I am covering for the hospitalists. Her recent hospitalization has been reviewed. She required Levophed at low dose overnight to maintain sufficient pressure. We are still waiting for results of her venous ultrasound that was done yesterday. ADDENDUM: Faxed report indicates it was negative for deep venous thrombosis (DVT) bilaterally so she got a break there. Her hemoglobin has remained stable overnight. She denies worsening of cough, shortness of breath. She does have some pain from her rib fractures, but she is using her incentive spirometer. Denies any chest pain. PHYSICAL EXAMINATION: 190/57, pulse 60, respiratory rate 18, 96% 02 saturation. GENERAL APPEARANCE: Bright, alert, smiling, in no distress. HEENT: Unremarkable. LUNGS: Decreased breath sounds both bases. Chest wall no crepitance. HEART: Regular rate and rhythm without murmur. ABDOMEN: Soft, nontender, no masses. No peripheral edema. LABS: Hemoglobin is 11.1, white count 8, platelets 477, sodium, 142, potassium 4.1, BUN 6, creatinine 0.6, glucose 102. IMPRESSION: 1. Upper GI bleed with acute blood loss anemia status post transfusion 3 units of packed red blood cells, currently on a Protonix drip. She is on Protonix 40 mg IV every 12 hours which we will continue. Agree we need to continue dual antiplatelet therapy due to recent deployment of two drug eluding stents. 2. Coronary artery disease. Status post myocardial infarction (OR) with cardiac arrest and placement of two drug eluding stents. Continue dual antiplatelet therapy and her atorvastatin 40 mg daily. 3. Pneumonia. Probably from Staph. She is currently on Zosyn and Vancomycin. She only grew out a few Staph in her sputum so I am not sure whether that is a colonization or indicates Staph pneumonia. I am continuing the antibiotic regimen for now. She is still requiring pressor support for septic shock. 4. Hypokalemia. This is resolved. 5. Swollen leg. Ultrasound negative for deep venous thrombosis (DVT). 6. Multiple rib fractures from cardiopulmonary resuscitation (CPR). Urged her to continue her incentive spirometry.
--- NOTE | 2018-07-26 09:24 | REP ---
Portable chest x-ray: Single view. History: Pneumonia. Comparison chest x-ray: July 24, 2018. Findings: A right internal jugular central venous catheter is noted in place. Coronary artery stent material is visible along the left heart border. The lungs are symmetrically aerated and appear clear. Pleural angles are sharp. Heart size is normal. The hemidiaphragms are more sharply visualized bilaterally than on yesterday's chest x-ray. Electronically Signed by Renato Montero MD 07/25/2018 07:51 A
--- NOTE | 2018-07-26 09:28 | REP ---
Duplex extremity venous ultrasound: Bilateral lower extremity. History: Rule out DVT. Findings: The deep veins are anechoic and fully compressible from the groin to the popliteal fossa in the left and right lower extremity. Color flow imaging is homogeneous. Spectral Doppler interrogation demonstrates intact respiratory variation in flow and normal manual augmentation of flow. There is no evidence of deep vein thrombosis. Impression: Negative bilateral lower extremity duplex venous ultrasound. No evidence of deep vein thrombosis. Electronically Signed by Renato Montero MD 07/25/2018 08:35 A
[2018-07-26] MEDS: ACETAMINOPHEN TAB 650MG DOSE (2X325MG) PO PRN ×2 (10:00→22:10)
--- NOTE | 2018-07-26 10:00 | PHACANCOPD ---
PHARMACY VANCOMYCIN DOSING Pt Demographics Demographics Patient Age:53 , Weight:65.000 , Gender: female Adjusted Body Weight Date: 07/20/18, Adjusted Body Weight: Kg Vancomycin Vancomycin indication: HCAP Vancomycin Target Ranges: 15-20 mcg/ml Vancomycin Load Y/N: Yes Load Dose Date Time Vancomycin Load Dose: 1500mg Date:07/20/18 Time:2100 Vancomycin Dose Date: 07/20/18. Current Vancomycin Dose: [1g IV Q12H] Intermittent Dosing?: No Labs Micro Microbiology 07/20/18 Blood Culture - Final, Complete NO GROWTH AFTER 5 DAYS 07/20/18 Blood Culture - Final, Complete NO GROWTH AFTER 5 DAYS 07/20/18 Stool Occult Blood (GEETHA) - Final, Complete 07/21/18 MRSA Screen - Final, Complete 07/21/18 Gram Stain - Final, Complete 07/21/18 Sputum Culture - Final, Complete Staphylococcus Aureus 07/20/18 Respiratory Virus Panel (PCR) (GEETHA) - Final, Complete Creatinine Clearance Date:07/20/18.Est Creatinine Clearance: [~79ml/min]. Assessment and Plan Maintaining Current Dose?: No Reason for dose change: Trough too high Pharmacist Note Pharmacist Note 07/26/18: Vancomycin level today resulted at 24.1mcg/ml. Scr remains stable at 0.67 as does BUN and output. We will reduce the patient's current regimen from 1g IV Q8H to 1g IV Q12H for the treatment of MSSA HCAP (GEETHA=1). We will schedule a follow-up trough level to be drawn tomorrow at 2000. We will continue to monitor and make further dose adjustments if needed. 07/22/18: Vancomycin is being re-started today for the treatment of HCAP 2/2 preliminary sputum cultures growing staph aureus (final sensitivities pending). The patient was discharged from [facility] a little over a week ago, and symptoms had worsened despite oral augmentin therapy on discharge. On admit the patient's pressures were low and the patient was started on pressors with an elevated BUN. Since admit, his pressures have improved as has his BUN; therefore, we will restart the patient with a 1500mg loading dose followed by an increased maintenance regimen of 1g IV Q8H - aiming for a goal trough of 15- 20mcg/ml. A vancomycin trough level has been scheduled to be drawn tomorrow at 0800. We will continue to monitor and make dose adjustments if needed. Date: 07/20/18. Pharmacist note: Day #1 empiric vancomycin therapy initiated with a 1500mg loading dose, followed by a maintenance regimen of 1g IV Q12H for the treatment of HCAP - aiming for a goal trough of 15-20mcg/ml. WBC, pulse, and RR are currently elevated. The patient is afebrile and pulse ox is currently WNL on room air. Blood cultures are pending. No PMH of MRSA or vanco use here at [facility]. We will continue to monitor the patient's renal function and schedule a trough level when deemed appropriate. ZOYA ULLOA [facility]ARM[facility] Jul 26, 2018 10:00
[2018-07-26] MEDS ORDERED: NS 500 ML IV ONE ×2 (13:15→18:15)
[2018-07-26] MEDS: KCL 20MEQ in NS 1000ML 1,000 ML IV SCH ×2 (14:44→22:14)
--- NOTE | 2018-07-26 19:01 | IPN ---
DATE: 07/26/2018 Afternoon note. Star still is having problems with her blood pressure. Mean arterial pressure is hovering around 60. I gave her a bolus of saline earlier this afternoon; I changed her IV to normal saline. Late afternoon pressures started to slip a bit; again, she is still on pressor support. I gave her another 500 mL of saline as a bolus and continuing her IV saline.
[2018-07-26] MEDS: ATORVASTATIN 20 MG TAB PO SCH (20:50)
[2018-07-27] VITALS (13 sets, daily range): BP systolic 92–116; BP diastolic 52–59
[2018-07-27] MEDS: KCL 20MEQ in NS 1000ML 1,000 ML IV SCH ×3 (05:04→23:32)
[2018-07-27] MEDS: PIPERACILLIN/TAZOBACTAM SOD 3.375 GM in D5W MINI-BAG PLUS 50 ML IV SCH ×4 (05:04→23:32)
[2018-07-27 05:26] LABS: BASO % 0.6 % (0.0-1.0); EOS # 0.4 10^3/uL (0.0-0.50); HEMATOCRIT 31.6 % (36.0-47.0); HEMOGLOBIN 9.9 g/dl (12.0-15.5); LYMPH # 0.9 10^3/uL (1.5-4.5); LYMPH % 13.8 % (24.0-44.0); MEAN CORPUSCULAR HEMOGLOBIN 29.4 pg (27.0-33.0); MEAN CORPUSCULAR HGB CONC 31.3 g/dl (32.0-36.5); MEAN CORPUSCULAR VOLUME 93.8 fl (80.0-96.0); MONO # 0.7 10^3/uL (0.0-0.8); MONO % 10.9 % (0.0-5.0); NEUTROPHILS # 4.3 10^3/uL (1.8-7.7); NEUTROPHILS % 67.6 % (36.0-66.0); PLATELET COUNT, AUTOMATED 426 10^3/uL (150-450); RED BLOOD COUNT 3.37 10^6/uL (4.00-5.40); WHITE BLOOD COUNT 6.3 10^3/uL (4.0-10.0)
[2018-07-27 05:51] LABS: BLOOD UREA NITROGEN 6 MG/DL (7-18); CALCIUM LEVEL 7.9 MG/DL (8.5-10.1); CARBON DIOXIDE LEVEL 25 MEQ/L (21-32); CHLORIDE LEVEL 112 MEQ/L (98-107); GLOMERULAR FILTRATION RATE > 60.0 (>51); GLUCOSE, FASTING 95 MG/DL (70-100); POTASSIUM SERUM 4.4 MEQ/L (3.5-5.1); SODIUM LEVEL 142 MEQ/L (136-145)
--- NOTE | 2018-07-27 07:43 | IPNPDOC ---
Text Note Date of Service The patient was seen on 07/27/18. NOTE Subjective: Patient seen and examined at bedside. Sitting comfortably in chair, in good spirits. Still complains of some chest pain from CPR/compressions. Denies any other complaints. She has been off Levophed for a few hours this morning. She is tolerating her diet, and denies and bright red blood per rectum or melena. Objective: General: NAD, sitting comfortably in chair, in good spirits HEENT: NC/AT, EOMI, PERRL Lungs: CTA B/L Heart: +S1S2, RRR Abd: soft, NT, +BS Ext: no edema Neuro: no gross focal deficits A/P: # Upper GI bleed with acute blood loss anemia - status post transfusion 3 units of packed red blood cells - Protonix 40 mg IV every 12 hours - d/w GI regarding transition to PO - continue DAPT due to very recent drug eluding stents (x2) # CAD s/p ID with cardiac arrest - s/p two EULALIA - continue statin and DAPT - d/w cardiology Dr. Mcdonnell for further assistance - no further recommendations - will follow as outpatient # Pneumonia - continue Zosyn and Vancomycin. - SCx + staph - colonization vs Staph pneumonia? - continue the antibiotic regimen for now #septic shock/hypotension - possibly secondary to PNA - off pressor support this morning - continue to monitor pressures # hypokalemia - resolved. # Swollen leg. Ultrasound negative for deep venous thrombosis (DVT). # Multiple rib fractures from cardiopulmonary resuscitation (CPR) - discussed importance of IS at bedside - patient has been compliant #thrombocytosis - likely reactive - will continue to trend VS,Trav, I+O VS, Trav, I+O Laboratory Tests 07/27/18 05:05 Red Blood Count 3.37 L, Mean Corpuscular Volume 93.8, Mean Corpuscular Hemoglobin 29.4, Mean Corpuscular Hemoglobin Concent 31.3 L, Red Cell Distribution Width 15.6 H, Neutrophils (%) (Auto) 67.6 H, Lymphocytes (%) (Auto) 13.8 L, Monocytes (%) (Auto) 10.9 H, Eosinophils (%) (Auto) 6.0 H, Basophils (%) (Auto) 0.6, Neutrophils # (Auto) 4.3, Lymphocytes # (Auto) 0.9 L, Monocytes # (Auto) 0.7, Eosinophils # (Auto) 0.4, Basophils # (Auto) 0.0, Calcium Level 7.9 L Vital Signs Date Time Temp Pulse Resp B/P (MAP) Pulse Ox O2 Delivery O2 Flow Rate FiO2 07/27/18 06:00 60 115/54 (74) 07/27/18 04:00 97.9 18 96 07/25/18 08:00 Room Air 07/23/18 09:36 2.0 40 I&O- Last 24 Hours up to 6 AM 07/27/18 06:00 Intake Total 5089.8 ml Output Total 2300 ml Balance 2789.8 ml RAFAEL AGGARWAL MD Jul 27, 2018 07:43
[2018-07-27] MEDS: TICAGRELOR 90 MG TABLET (BRILINTA) PO SCH ×2 (08:37→20:29)
[2018-07-27] MEDS: PANTOPRAZOLE 40MG INJ (PROTONIX) (C9113) IV SCH ×2 (08:37→20:30)
[2018-07-27] MEDS: ASPIRIN 81 MG CHEW TABLET PO SCH (08:37)
[2018-07-27] MEDS: VANCOMYCIN HCL 1,000 MG, VIAL MATE ADAPTER 1 EACH in D5W 250 ML IV SCH ×2 (08:38→20:30)
[2018-07-27] MEDS: ACETAMINOPHEN TAB 650MG DOSE (2X325MG) PO PRN ×2 (12:03→20:36)
[2018-07-27 18:23] LABS: HEMATOCRIT 31.3 % (36.0-47.0); HEMOGLOBIN 9.8 g/dl (12.0-15.5)
[2018-07-27] MEDS: ATORVASTATIN 20 MG TAB PO SCH (20:29)
--- NOTE | 2018-07-27 20:30 | PHACANCOPD ---
PHARMACY VANCOMYCIN DOSING Pt Demographics Demographics Patient Age:53 , Weight:65.000 , Gender: female Adjusted Body Weight Date: 07/20/18, Adjusted Body Weight: Kg Events Past 24 Hours Events Past 24 Hours: NO: Dialysis, Diuretic Therapy, Change in CrCl, Fever, Elevation in WBC, Pending Diagnostics, Pending Procedures, Other Vancomycin Vancomycin indication: HCAP Vancomycin Target Ranges: 15-20 mcg/ml Vancomycin Load Y/N: Yes Load Dose Date Time Vancomycin Load Dose: 1500mg Date:07/20/18 Time:2100 Vancomycin Dose Date: 07/20/18. Current Vancomycin Dose: [1g IV Q12H] Intermittent Dosing?: No Labs Labs Item Value Date Time Vancomycin Level Trough 24.1 UG/ML H 07/26/18 0836 Vancomycin Level Trough 14.0 UG/ML 07/27/18 1932 Creatinine 0.60 MG/DL 07/25/18 0525 Creatinine 0.67 MG/DL 07/26/18 0435 Creatinine 0.60 MG/DL 07/27/18 0505 White Blood Count 8.0 10^3/uL 07/26/18 0435 White Blood Count 6.3 10^3/uL 07/27/18 0505 Micro Microbiology 07/20/18 Blood Culture - Final, Complete NO GROWTH AFTER 5 DAYS 07/20/18 Blood Culture - Final, Complete NO GROWTH AFTER 5 DAYS 07/20/18 Stool Occult Blood (GEETHA) - Final, Complete 07/21/18 MRSA Screen - Final, Complete 07/21/18 Gram Stain - Final, Complete 07/21/18 Sputum Culture - Final, Complete Staphylococcus Aureus 07/20/18 Respiratory Virus Panel (PCR) (GEETHA) - Final, Complete Creatinine Clearance Date:07/20/18.Est Creatinine Clearance: [~79ml/min]. Assessment and Plan Maintaining Current Dose?: Yes Reason for dose change: No Dose Change Pharmacist Note Pharmacist Note Date: 07/27/18. Pharmacist note: Vancomycin trough today came back @ 19:32 at 14.0 mcg/ml. We will continue current dosing of 1g vancomycin IV every 12 hours. We will continue to monitor and adjust the dose as needed. 07/26/18: Vancomycin level today resulted at 24.1mcg/ml. Scr remains stable at 0.67 as does BUN and output. We will reduce the patient's current regimen from 1g IV Q8H to 1g IV Q12H for the treatment of MSSA HCAP (GEETHA=1). We will schedule a follow-up trough level to be drawn tomorrow at 2000. We will continue to monitor and make further dose adjustments if needed. 07/22/18: Vancomycin is being re-started today for the treatment of HCAP 2/2 preliminary sputum cultures growing staph aureus (final sensitivities pending). The patient was discharged from [facility] a little over a week ago, and symptoms had worsened despite oral augmentin therapy on discharge. On admit the patient's pressures were low and the patient was started on pressors with an elevated BUN. Since admit, his pressures have improved as has his BUN; therefore, we will restart the patient with a 1500mg loading dose followed by an increased maintenance regimen of 1g IV Q8H - aiming for a goal trough of 15- 20mcg/ml. A vancomycin trough level has been scheduled to be drawn tomorrow at 0800. We will continue to monitor and make dose adjustments if needed. Date: 07/20/18. Pharmacist note: Day #1 empiric vancomycin therapy initiated with a 1500mg loading dose, followed by a maintenance regimen of 1g IV Q12H for the treatment of HCAP - aiming for a goal trough of 15-20mcg/ml. WBC, pulse, and RR are currently elevated. The patient is afebrile and pulse ox is currently WNL on room air. Blood cultures are pending. No PMH of MRSA or vanco use here at [facility]. We will continue to monitor the patient's renal function and schedule a trough level when deemed appropriate. IAN VELAZQUEZ PHARMACY Jul 27, 2018 20:30
[2018-07-28 04:00] VITALS: BP 101/57
[2018-07-28] MEDS: PIPERACILLIN/TAZOBACTAM SOD 3.375 GM in D5W MINI-BAG PLUS 50 ML IV SCH ×3 (05:12→17:20)
[2018-07-28 05:15] LABS: HEMATOCRIT 33.1 % (36.0-47.0); HEMOGLOBIN 10.4 g/dl (12.0-15.5); MEAN CORPUSCULAR HEMOGLOBIN 30.2 pg (27.0-33.0); MEAN CORPUSCULAR HGB CONC 31.4 g/dl (32.0-36.5); MEAN CORPUSCULAR VOLUME 96.2 fl (80.0-96.0); PLATELET COUNT, AUTOMATED 422 10^3/uL (150-450); RED BLOOD COUNT 3.44 10^6/uL (4.00-5.40)
[2018-07-28 05:34] LABS: ALBUMIN 2.2 GM/DL (3.2-5.2); ALT/SGPT 19 U/L (12-78); BILIRUBIN,TOTAL 0.2 MG/DL (0.2-1.0); BLOOD UREA NITROGEN 6 MG/DL (7-18); CALCIUM LEVEL 8.1 MG/DL (8.5-10.1); CARBON DIOXIDE LEVEL 25 MEQ/L (21-32); CHLORIDE LEVEL 114 MEQ/L (98-107); CREATININE FOR GFR 0.58 MG/DL (0.55-1.30); GLOMERULAR FILTRATION RATE > 60.0 (>51); GLUCOSE, FASTING 91 MG/DL (70-100); POTASSIUM SERUM 4.4 MEQ/L (3.5-5.1); SODIUM LEVEL 143 MEQ/L (136-145); TOTAL PROTEIN 5.7 GM/DL (6.4-8.2)
[2018-07-28 08:00] VITALS: BP 102/52
--- NOTE | 2018-07-28 08:48 | IPNPDOC ---
Text Note Date of Service The patient was seen on 07/28/18. NOTE Subjective: Patient seen and examined at bedside. Lying comfortably in bed. No medical complaints today. She is tolerating her diet, and denies and bright red blood per rectum or melena. Objective: General: NAD, lying comfortably in bed HEENT: NC/AT, EOMI, PERRL Lungs: CTA B/L Heart: +S1S2, RRR Abd: soft, NT, +BS Ext: no edema Neuro: no gross focal deficits A/P: # Upper GI bleed with acute blood loss anemia - status post transfusion 3 units of packed red blood cells - transition to PO protonix BID - continue DAPT due to very recent drug eluding stents (x2) - d/w cardiology for recommendations # CAD s/p UT with cardiac arrest - s/p two EULALIA - continue statin and DAPT - d/w cardiology Dr. Mcdonnell for further assistance - no further recommendations - will follow as outpatient # Pneumonia - continue Zosyn and Vancomycin. - SCx + staph - colonization vs Staph pneumonia? - continue antibiotic regimen for now #septic shock/hypotension - possibly secondary to PNA - continue to monitor pressures # hypokalemia - resolved. # Swollen leg. Ultrasound negative for deep venous thrombosis (DVT). # Multiple rib fractures from cardiopulmonary resuscitation (CPR) - discussed importance of IS at bedside - patient has been compliant - states she is using her IS every half hour #thrombocytosis - improving - likely reactive - will continue to trend Dispo: transition to PO protonix, transfer to PCU, discharge planning - anticipate discharge in 48 hours VS,Trav, I+O VS, Trav, I+O Laboratory Tests 07/27/18 18:06 07/28/18 04:54 Red Blood Count 3.44 L, Mean Corpuscular Volume 96.2 H, Mean Corpuscular He moglobin 30.2, Mean Corpuscular Hemoglobin Concent 31.4 L, Red Cell Distribution Width 15.9 H, Calcium Level 8.1 L, Aspartate Amino Transf (AST/SGOT) 16, Alanine Aminotransferase (ALT/SGPT) 19, Alkaline Phosphatase 135 H, Total Bilirubin 0.2, Total Protein 5.7 L, Albumin 2.2 L Vital Signs Date Time Temp Pulse Resp B/P (MAP) Pulse Ox O2 Delivery O2 Flow Rate FiO2 07/28/18 04:00 97.7 57 16 101/57 (72) 98 07/25/18 08:00 Room Air 07/23/18 09:36 2.0 40 I&O- Last 24 Hours up to 6 AM 07/28/18 06:00 Intake Total 3120 ml Output Total 1750 ml Balance 1370 ml RAFAEL AGGARWAL MD Jul 28, 2018 08:48
[2018-07-28] MEDS: PANTOPRAZOLE 40MG TAB (PROTONIX) PO SCH ×2 (09:24→21:00)
[2018-07-28] MEDS: TICAGRELOR 90 MG TABLET (BRILINTA) PO SCH ×2 (09:24→21:00)
[2018-07-28] MEDS: ASPIRIN 81 MG CHEW TABLET PO SCH (09:24)
[2018-07-28] MEDS: VANCOMYCIN HCL 1,000 MG, VIAL MATE ADAPTER 1 EACH in D5W 250 ML IV SCH ×2 (09:25→21:00)
[2018-07-28 12:00] VITALS: BP 106/66
[2018-07-28] MEDS: ACETAMINOPHEN TAB 650MG DOSE (2X325MG) PO PRN ×2 (12:43→17:20)
[2018-07-28 16:00] VITALS: BP 109/59
[2018-07-28 20:00] VITALS: BP 111/69
[2018-07-28] MEDS: ATORVASTATIN 20 MG TAB PO SCH (21:00)
[2018-07-28 23:59] VITALS: BP 101/59
[2018-07-29] MEDS: PIPERACILLIN/TAZOBACTAM SOD 3.375 GM in D5W MINI-BAG PLUS 50 ML IV SCH ×4 (00:16→18:26)
[2018-07-29] MEDS: ACETAMINOPHEN TAB 650MG DOSE (2X325MG) PO PRN ×3 (00:17→19:21)
[2018-07-29 04:00] VITALS: BP 97/62
[2018-07-29 06:10] LABS: HEMATOCRIT 33.2 % (36.0-47.0); HEMOGLOBIN 10.7 g/dl (12.0-15.5); MEAN CORPUSCULAR HEMOGLOBIN 30.1 pg (27.0-33.0); MEAN CORPUSCULAR HGB CONC 32.2 g/dl (32.0-36.5); MEAN CORPUSCULAR VOLUME 93.5 fl (80.0-96.0); PLATELET COUNT, AUTOMATED 459 10^3/uL (150-450); RED BLOOD COUNT 3.55 10^6/uL (4.00-5.40); WHITE BLOOD COUNT 6.2 10^3/uL (4.0-10.0)
[2018-07-29 06:41] LABS: ALBUMIN 2.2 GM/DL (3.2-5.2); ALT/SGPT 23 U/L (12-78); BILIRUBIN,TOTAL 0.3 MG/DL (0.2-1.0); BLOOD UREA NITROGEN 10 MG/DL (7-18); CALCIUM LEVEL 8.3 MG/DL (8.5-10.1); CARBON DIOXIDE LEVEL 25 MEQ/L (21-32); CHLORIDE LEVEL 111 MEQ/L (98-107); CREATININE FOR GFR 0.66 MG/DL (0.55-1.30); GLOMERULAR FILTRATION RATE > 60.0 (>51); GLUCOSE, FASTING 96 MG/DL (70-100); POTASSIUM SERUM 3.7 MEQ/L (3.5-5.1); SODIUM LEVEL 143 MEQ/L (136-145); TOTAL PROTEIN 6.7 GM/DL (6.4-8.2)
[2018-07-29 08:00] VITALS: BP 96/61
[2018-07-29] MEDS: ASPIRIN 81 MG CHEW TABLET PO SCH (08:10)
[2018-07-29] MEDS: VANCOMYCIN HCL 1,000 MG, VIAL MATE ADAPTER 1 EACH in D5W 250 ML IV SCH ×2 (08:10→20:24)
[2018-07-29] MEDS: TICAGRELOR 90 MG TABLET (BRILINTA) PO SCH ×2 (08:10→20:23)
[2018-07-29] MEDS: PANTOPRAZOLE 40MG TAB (PROTONIX) PO SCH ×2 (08:10→20:23)
--- NOTE | 2018-07-29 08:17 | IPNPDOC ---
Date Seen The patient was seen on 07/29/18. Progress Note Interval history: Patient has been moved out of ICU. Patient reports no GI symptoms. Denies any Abdominal pain, black stools, nausea, vomiting or lightheadedness. Patient is tolerating PT and her Blood pressure is stable off Pressors. Exam: Vitals: Stable BP, afebrile, no tachycardia. Chest: bilateral air entry, No crepitations. Abdomen: Soft, non distended. normal bowel sounds. Labs: Reviewed. Impression: -- Acute post hemorrhagic anemia in patient on dual antiplatelet agents for rec ent AMI and Cardiac stent placement. s/p EGD x 2, large blood clot in gastric fundus and body, no bleeding lesions identified in rest of the exam. Symptoms resolved on IV PPI. Currently no overt active GI bleeding, stable H/H and Normal BUN/ Cr. -- Severe sepsis with shock at initial presentation but resolved with Abx therapy. ( suspected source Pneumonia). Recommendations: -- Regular cardiac healthy diet as tolerated. -- Hemoglobin is stable and can be monitored on as needed basis based on c linical status. -- Switched pantoprazole IV to Oral 40mg twice daily. ( to be taken boot maker on empty stomach -1/2 hour prior to breakfast and at bedtime) - to be continued for atleast 3 months. -- Avoid NSAIDs -- To continue the dual anti-platelet agents as the benefits outweighs risks. 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 Patient and her agreed with continuing the anti- platelet agents. -- PT and OT as tolerated. -- Patient can be followed up as outpatient in her primary GI clinic ( Dr. Hutchins) or with me in [facility], electively (around 6-8 weeks) for routine monitoring. -- GI signing off. please recall GI if any change in status. Plan of care discussed with patient and all questions answered. Recommendations communicated to primary team. VS, I&O, 24H, Fishbone Vital Signs/I&O Vital Signs Date Time Temp Pulse Resp B/P (MAP) Pulse Ox O2 Delivery O2 Flow Rate FiO2 07/29/18 04:00 97.8 63 16 97/62 (74) 97 07/25/18 08:00 Room Air 07/23/18 09:36 2.0 40 I&O- Last 24 Hours up to 6 AM 07/29/18 06:00 Intake Total 1250 ml Output Total 750 ml Balance 500 ml Laboratory Data 24H LABS Laboratory Tests 2 07/29/18 05:44: Nucleated Red Blood Cells % (auto) 0.0, Anion Gap 7L, Glomerular Filtration Rate > 60.0, Blood Urea Nitrogen 10#, Creatinine 0.66, Sodium Level 143, Potassium Level 3.7, Chloride Level 111H, Carbon Dioxide Level 25, Calcium Level 8.3L, Aspartate Amino Transf (AST/SGOT) 18, Alanine Aminotransferase (ALT/SGPT) 23, Alkaline Phosphatase 138H, Total Bilirubin 0.3, Total Protein 6.7, Albumin 2.2L, Albumin/Globulin Ratio 0.49L CBC/BMP Laboratory Tests 07/29/18 05:44 Red Blood Count 3.55 L, Mean Corpuscular Volume 93.5, Mean Corpuscular Hemoglobin 30.1, Mean Corpuscular Hemoglobin Concent 32.2, Red Cell Distribution Width 15.4 H, Calcium Level 8.3 L, Aspartate Amino Transf (AST/SGOT) 18, Alanine Aminotransferase (ALT/SGPT) 23, Alkaline Phosphatase 138 H, Total Bilirubin 0.3, Total Protein 6.7, Albumin 2.2 L Microbiology Microbiology 07/20/18 Blood Culture - Final, Complete NO GROWTH AFTER 5 DAYS 07/20/18 Blood Culture - Final, Complete NO GROWTH AFTER 5 DAYS 07/20/18 Stool Occult Blood (GEETHA) - Final, Complete 07/21/18 MRSA Screen - Final, Complete 07/21/18 Gram Stain - Final, Complete 07/21/18 Sputum Culture - Final, Complete Staphylococcus Aureus 07/20/18 Respiratory Virus Panel (PCR) (GEETHA) - Final, Complete SYED TOLENTINO MD Jul 29, 2018 08:17
--- NOTE | 2018-07-29 08:33 | IPNPDOC ---
Text Note Date of Service The patient was seen on 07/29/18. NOTE Subjective: Patient seen and examined at bedside. Lying comfortably in bed. No medical complaints today. She is tolerating her diet, and denies and bright red blood per rectum or melena. Objective: General: NAD, lying comfortably in bed HEENT: NC/AT, EOMI, PERRL Neck: right IJ central line in place, area is C/D/I Lungs: CTA B/L Heart: +S1S2, RRR Abd: soft, NT, +BS Ext: no edema Neuro: no gross focal deficits A/P: # Upper GI bleed with acute blood loss anemia - status post transfusion 3 units of packed red blood cells - continuing PO protonix BID - continue DAPT due to very recent drug eluding stents (x2) - d/w cardiology for recommendations # CAD s/p [place] with cardiac arrest - s/p two EULALIA - continue statin and DAPT; risks<<benefits - this has been discussed with patient extensively who understands risks/benefits and agrees with continuing DAPT - d/w cardiology Dr. Mcdonnell for further assistance - no further recommendations - will follow as outpatient # Pneumonia - continue Zosyn and Vancomycin. - SCx + staph - colonization vs Staph pneumonia? - continue antibiotic regimen for now #septic shock/hypotension - possibly secondary to PNA - continue to monitor pressures # hypokalemia - resolved - patient/family state this may be a chronic issue - was receiving 20mEq daily at home - will continue to monitor; check mag levels # Swollen leg. Ultrasound negative for deep venous thrombosis (DVT). # Multiple rib fractures from cardiopulmonary resuscitation (CPR) - discussed importance of IS at bedside - patient has been compliant - states she is using her IS every half hour #thrombocytosis - peripheral smear pending - likely reactive - will continue to trend Dispo: transfer to PCU, discharge planning - anticipate discharge in 24 hours VSTrav, I+O VSTrav, I+O Laboratory Tests 07/29/18 05:44 Red Blood Count 3.55 L, Mean Corpuscular Volume 93.5, Mean Corpuscular Hemoglobin 30.1, Mean Corpuscular Hemoglobin Concent 32.2, Red Cell Distribution Width 15.4 H, Calcium Level 8.3 L, Aspartate Amino Transf (AST/SGOT) 18, Alanine Aminotransferase (ALT/SGPT) 23, Alkaline Phosphatase 138 H, Total Bilirubin 0.3, Total Protein 6.7, Albumin 2.2 L Vital Signs Date Time Temp Pulse Resp B/P (MAP) Pulse Ox O2 Delivery O2 Flow Rate FiO2 07/29/18 04:00 97.8 63 16 97/62 (74) 97 07/25/18 08:00 Room Air 07/23/18 09:36 2.0 40 I&O- Last 24 Hours up to 6 AM 07/29/18 06:00 Intake Total 1250 ml Output Total 750 ml Balance 500 ml RAFAEL AGGARWAL MD Jul 29, 2018 08:33
[2018-07-29 12:00] VITALS: BP 102/70
[2018-07-29 16:00] VITALS: BP 104/62
[2018-07-29 20:00] VITALS: BP 110/61
[2018-07-29] MEDS: ATORVASTATIN 20 MG TAB PO SCH (20:23)
[2018-07-29 23:59] VITALS: BP 103/55
[2018-07-30 04:00] VITALS: BP 116/60
[2018-07-30 05:50] LABS: HEMATOCRIT 34.8 % (36.0-47.0); HEMOGLOBIN 11.3 g/dl (12.0-15.5); MEAN CORPUSCULAR HEMOGLOBIN 30.2 pg (27.0-33.0); MEAN CORPUSCULAR HGB CONC 32.5 g/dl (32.0-36.5); PLATELET COUNT, AUTOMATED 451 10^3/uL (150-450); RED BLOOD COUNT 3.74 10^6/uL (4.00-5.40); WHITE BLOOD COUNT 7.7 10^3/uL (4.0-10.0)
[2018-07-30] MEDS: PIPERACILLIN/TAZOBACTAM SOD 3.375 GM in D5W MINI-BAG PLUS 50 ML IV SCH ×6 (06:17→23:52)
[2018-07-30 06:19] LABS: ALBUMIN 2.5 GM/DL (3.2-5.2); BILIRUBIN,TOTAL 0.3 MG/DL (0.2-1.0); CALCIUM LEVEL 8.7 MG/DL (8.5-10.1); CREATININE FOR GFR 1.17 MG/DL (0.55-1.30); GLOMERULAR FILTRATION RATE 51.1 (>51); POTASSIUM SERUM 3.9 MEQ/L (3.5-5.1); TOTAL PROTEIN 7.2 GM/DL (6.4-8.2)
--- NOTE | 2018-07-30 07:40 | IPNPDOC ---
Text Note Date of Service The patient was seen on 07/30/18. NOTE Subjective: Patient seen and examined at bedside. Lying comfortably in bed. No new medical complaints. Possibly with polyuria, admits to history of UTIs. Objective: General: NAD, lying comfortably in bed HEENT: NC/AT, EOMI, PERRL Neck: right IJ central line in place, area is C/D/I Lungs: CTA B/L Heart: +S1S2, RRR Abd: soft, NT, +BS Ext: no edema Neuro: no gross focal deficits A/P: # Upper GI bleed with acute blood loss anemia - status post transfusion 3 units of packed red blood cells - continuing PO protonix BID - continue DAPT due to very recent drug eluding stents (x2) - d/w cardiology for recommendations #increased creatinine - check UA - continue to follow # CAD s/p [place] with cardiac arrest - s/p two EULALIA - continue statin and DAPT; risks<<benefits - this has been discussed with patient extensively who understands risks/benefits and agrees with continuing DAPT - d/w cardiology Dr. Mcdonnell for further assistance - no further recommendations - will follow as outpatient # Pneumonia - continue Zosyn and Vancomycin. - SCx + staph - colonization vs Staph pneumonia? - continue antibiotic regimen for now #septic shock/hypotension - possibly secondary to PNA - continue to monitor pressures # hypokalemia - resolved - patient/family state this may be a chronic issue - was receiving 20mEq daily at home - will continue to monitor; check mag levels # Swollen leg. Ultrasound negative for deep venous thrombosis (DVT). # Multiple rib fractures from cardiopulmonary resuscitation (CPR) - discussed importance of IS at bedside - patient has been compliant - states she is using her IS every half hour #thrombocytosis - likely reactive - will continue to trend #deconditioning - not safe for d/c as per PT - will continue with physical therapy Dispo: transfer to med/surg, d/c tele, check UA, continue PT VS,Fishbone, I+O VS, Fishbone, I+O Laboratory Tests 07/30/18 05:28 Red Blood Count 3.74 L, Mean Corpuscular Volume 93.0, Mean Corpuscular Hemoglobin 30.2, Mean Corpuscular Hemoglobin Concent 32.5, Red Cell Distribution Width 15.3 H, Calcium Level 8.7, Aspartate Amino Transf (AST/SGOT) 26, Alanine Aminotransferase (ALT/SGPT) 26, Alkaline Phosphatase 159 H, Total Bilirubin 0.3, Total Protein 7.2, Albumin 2.5 L Vital Signs Date Time Temp Pulse Resp B/P (MAP) Pulse Ox O2 Delivery O2 Flow Rate FiO2 07/30/18 04:00 97.5 67 16 116/60 (78) 95 07/25/18 08:00 Room Air I&O- Last 24 Hours up to 6 AM 07/30/18 06:00 Intake Total 1580 ml Output Total 200 ml Balance 1380 ml RAFAEL AGGARWAL MD Jul 30, 2018 07:40
[2018-07-30 08:00] VITALS: BP 105/58
[2018-07-30] MEDS: PANTOPRAZOLE 40MG TAB (PROTONIX) PO SCH ×2 (09:03→19:57)
[2018-07-30] MEDS: ASPIRIN 81 MG CHEW TABLET PO SCH (09:03)
[2018-07-30] MEDS: TICAGRELOR 90 MG TABLET (BRILINTA) PO SCH ×2 (09:03→19:58)
[2018-07-30] MEDS ORDERED: SLF 3 ML SYR IV PRN (10:15)
[2018-07-30] MEDS: SLF 3 ML SYR IV SCH ×2 (11:48→19:58)
[2018-07-30 12:00] VITALS: BP 107/61
--- NOTE | 2018-07-30 12:08 | PHACANCOPD ---
PHARMACY VANCOMYCIN DOSING Pt Demographics Demographics Patient Age:53 , Weight:62.300 , Gender: female Adjusted Body Weight Date: 07/20/18 Events Past 24 Hours Events Past 24 Hours: YES: Change in CrCl Vancomycin Vancomycin indication: HCAP Vancomycin Target Ranges: 15-20 mcg/ml Vancomycin Load Y/N: Yes Load Dose Date Time Vancomycin Load Dose: 1500mg Date:07/20/18 Time:2100 Vancomycin Dose Date: 07/20/18. Current Vancomycin Dose: [1g IV Q12H] Intermittent Dosing?: No Labs Labs Laboratory Tests 07/30/18 05:28 Red Blood Count 3.74 L, Mean Corpuscular Volume 93.0, Mean Corpuscular Hemoglobin 30.2, Mean Corpuscular Hemoglobin Concent 32.5, Red Cell Distribution Width 15.3 H, Calcium Level 8.7, Aspartate Amino Transf (AST/SGOT) 26, Alanine Aminotransferase (ALT/SGPT) 26, Alkaline Phosphatase 159 H, Total Bilirubin 0.3, Total Protein 7.2, Albumin 2.5 L Micro Microbiology 07/20/18 Blood Culture - Final, Complete NO GROWTH AFTER 5 DAYS 07/20/18 Blood Culture - Final, Complete NO GROWTH AFTER 5 DAYS 07/20/18 Stool Occult Blood (GEETHA) - Final, Complete 07/21/18 MRSA Screen - Final, Complete 07/21/18 Gram Stain - Final, Complete 07/21/18 Sputum Culture - Final, Complete Staphylococcus Aureus 07/20/18 Respiratory Virus Panel (PCR) (GEETHA) - Final, Complete Creatinine Clearance Date:07/20/18.Est Creatinine Clearance: [~79ml/min]. DATE: 07/31 ESTIMATED CRCL = 47 Assessment and Plan Maintaining Current Dose?: No Reason for dose change: Trough too high Pharmacist Note Pharmacist Note DATE: 07/30/18. Pharmacist note: Vancomycin trough today came back at 22.8 @ 0824. Held 9am dose and decreased dose to 750mg IV q12h starting at 1600. Scheduled trough on 07/31 @1500 before 3rd dose. Will continue to monitor patient and adjust dose as needed. Date: 07/27/18. Pharmacist note: Vancomycin trough today came back @ 19:32 at 14.0 mcg/ml. We will continue current dosing of 1g vancomycin IV every 12 hours. We will continue to monitor and adjust the dose as needed. 07/26/18: Vancomycin level today resulted at 24.1mcg/ml. Scr remains stable at 0.67 as does BUN and output. We will reduce the patient's current regimen from 1g IV Q8H to 1g IV Q12H for the treatment of MSSA HCAP (GEETHA=1). We will schedule a follow-up trough level to be drawn tomorrow at 2000. We will continue to monitor and make further dose adjustments if needed. 07/22/18: Vancomycin is being re-started today for the treatment of HCAP 2/2 preliminary sputum cultures growing staph aureus (final sensitivities pending). The patient was discharged from [facility] a little over a week ago, and symptoms had worsened despite oral augmentin therapy on discharge. On admit the patient's pressures were low and the patient was started on pressors with an elevated BUN. Since admit, his pressures have improved as has his BUN; therefore, we will restart the patient with a 1500mg loading dose followed by an increased maintenance regimen of 1g IV Q8H - aiming for a goal trough of 15- 20mcg/ml. A vancomycin trough level has been scheduled to be drawn tomorrow at 0800. We will continue to monitor and make dose adjustments if needed. Date: 07/20/18. Pharmacist note: Day #1 empiric vancomycin therapy initiated with a 1500mg loading dose, followed by a maintenance regimen of 1g IV Q12H for the treatment of HCAP - aiming for a goal trough of 15-20mcg/ml. WBC, pulse, and RR are currently elevated. The patient is afebrile and pulse ox is currently WNL on room air. Blood cultures are pending. No PMH of MRSA or vanco use here at [facility]. We will continue to monitor the patient's renal function and schedule a trough level when deemed appropriate. SLAVA MCGUIRE PHARMACY Jul 30, 2018 12:08
[2018-07-30 13:36] VITALS: BP 106/60
[2018-07-30 13:40] VITALS: BP 104/56
[2018-07-30] MEDS: ACETAMINOPHEN TAB 650MG DOSE (2X325MG) PO PRN (16:20)
[2018-07-30] MEDS: VANCOMYCIN HCL 750 MG, VIAL MATE ADAPTER 1 EACH in D5W 250 ML IV SCH (16:20)
[2018-07-30] MEDS: ATORVASTATIN 20 MG TAB PO SCH (19:57)
[2018-07-30 22:00] VITALS: BP 107/60
[2018-07-31] MEDS: VANCOMYCIN HCL 750 MG, VIAL MATE ADAPTER 1 EACH in D5W 250 ML IV SCH (03:38)
[2018-07-31] MEDS: SLF 3 ML SYR IV SCH (05:20)
[2018-07-31] MEDS: PIPERACILLIN/TAZOBACTAM SOD 3.375 GM in D5W MINI-BAG PLUS 50 ML IV SCH (05:22)
[2018-07-31 06:00] VITALS: BP 119/64
[2018-07-31 06:40] LABS: HEMATOCRIT 33.8 % (36.0-47.0); HEMOGLOBIN 10.9 g/dl (12.0-15.5); MEAN CORPUSCULAR HEMOGLOBIN 30.2 pg (27.0-33.0); MEAN CORPUSCULAR HGB CONC 32.2 g/dl (32.0-36.5); MEAN CORPUSCULAR VOLUME 93.6 fl (80.0-96.0); PLATELET COUNT, AUTOMATED 427 10^3/uL (150-450); RED BLOOD COUNT 3.61 10^6/uL (4.00-5.40); WHITE BLOOD COUNT 6.8 10^3/uL (4.0-10.0)
[2018-07-31 06:54] LABS: ALBUMIN 2.6 GM/DL (3.2-5.2); BILIRUBIN,TOTAL 0.4 MG/DL (0.2-1.0); CALCIUM LEVEL 8.6 MG/DL (8.5-10.1); CREATININE FOR GFR 1.09 MG/DL (0.55-1.30); GLOMERULAR FILTRATION RATE 55.5 (>51); POTASSIUM SERUM 3.5 MEQ/L (3.5-5.1); TOTAL PROTEIN 7.1 GM/DL (6.4-8.2)
[2018-07-31] MEDS ORDERED: PANT40TA3 PO (08:07)
[2018-07-31] MEDS ORDERED: POTA20PW PO (08:08)
[2018-07-31] MEDS: TICAGRELOR 90 MG TABLET (BRILINTA) PO SCH (08:45)
[2018-07-31] MEDS: PANTOPRAZOLE 40MG TAB (PROTONIX) PO SCH (08:45)
[2018-07-31] MEDS: ASPIRIN 81 MG CHEW TABLET PO SCH (08:45)
--- NOTE | 2018-07-31 09:15 | DS.PDOC ---
Discharge Summary General Date of Admission Jul 20, 2018 at 20:05 Date of Discharge 07/31/18 Specialist/Consultants Involve: Alvarado Pfeiffer Specialist/Consultants Involve GI Dr. Kang Surgery Dr. Godoy Discharge Summary PROCEDURES PERFORMED DURING STAY: Upper endoscopy, right IJ central venous catheter ADMITTING DIAGNOSES: 1. . DISCHARGE DIAGNOSES: 1. Septic shock 2. Pneumonia 3. Acute blood loss anemia 4. Hypokalemia 5. thrombocytosis SECONDARY DX: 1. CAD/MO/Stents 2. Multiple Rib Fx s/p CPR COMPLICATIONS/CHIEF COMPLAINT: Pneumonia,Sepsis. HISTORY OF PRESENT ILLNESS: Star Lindsay is a 53 YO F with CAD (s/p MO and 2 EULALIA placed 10 days prior to this presentation at [facility]), and multiple sclerosis who presented with several hours weakness, nausea, diarrhea and shortness of breath. She was just discharged from [facility] 10 days prior to presentation, and has been taking all of her medication as prescribed and was reportedly improving, then complained of being profoundly weak, lightheaded, dizzy, with nausea and diarrhea. She did report some subjective fevers and chills and has been experiencing shortness of breath to the point where she cannot get out of bed. She did receive chest compressions when she had her MO and has several rib fractures that are causing her a great deal of chest wall tenderness. In the ED, she was found to be hypotensive with systolic 80s and diastolic 50s and a map around 60. HOSPITAL COURSE: Patient was admitted to ICU for septic shock secondary to pneumonia complicated with acute blood loss anemia. She received 5 units of packed red blood cells. She required presser support to maintain adequate perfusion. Her pneumonia was treated with IV antibiotics. She received a central line for pressers, and also underwent upper endoscopy, which showed blood clots. She was receiving a protonix infusion, which eventually was de-escalated to protonix by mouth. She was eventually weaned off pressers, and maintained adequate blood pressure independently. Her hemoglobin remained stable, with no signs of bleeding. 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 She completed 10 day course of broad spectrum anti-microbial therapy, with no complaints of shortness of breath. She was evaluated by physical therapy and deemed safe to ambulate independently. DISCHARGE MEDICATIONS: Please see below. ALLERGIES: Please see below. PHYSICAL EXAMINATION ON DISCHARGE: General: NAD, lying comfortably in bed HEENT: NC/AT, EOMI, PERRL Neck: supple, bandage in place Lungs: CTA B/L Heart: +S1S2, RRR Abd: soft, NT, +BS Ext: no edema Neuro: no gross focal deficits LABORATORY DATA: Please see below. ACTIVITY: [As tolerated]. DIET: DASH diet DISCHARGE PLAN: Discharge home DISCHARGE INSTRUCTIONS: 1. Follow up with cardiology Dr. Mcdonnell in 7-10 days as scheduled. 2. Follow up PCP in 3-5 days. 3. Recommend follow up CBC/BMP in 3-5 days, or as per PCP recs. 4. Medications as directed. DISCHARGE CONDITION: [Stable]. TIME SPENT ON DISCHARGE: Greater than 30 minutes. Vital Signs/I&Os Vital Signs Date Time Temp Pulse Resp B/P (MAP) Pulse Ox O2 Delivery O2 Flow Rate FiO2 07/31/18 06:00 97.3 65 16 119/64 (82) 96 07/25/18 08:00 Room Air I&O- Last 24 Hours up to 6 AM 07/31/18 06:00 Intake Total 1710 ml Output Total 550 ml Balance 1160 ml Laboratory Data Labs 24H Laboratory Tests 2 07/30/18 10:52: Urine Color STRAW, Urine Appearance CLEAR, Urine pH 6.0, Urine Specific [place] 1.003, Urine Protein NEGATIVE, Urine Glucose (UA) NEGATIVE, Urine Ketones NEGATIVE, Urine Blood NEGATIVE, Urine Nitrite NEGATIVE, Urine Bilirubin NEGATIVE, Urine Urobilinogen 0.2, Urine Leukocyte Esterase NEGATIVE, Urine WBC (Auto) 1, Urine RBC (Auto) 4H, Urine Hyaline Casts (Auto) 0, Urine Bacteria (Auto) 1+H, Urine Squamous Epithelial Cells 2, Urine Mucus (Auto) SMALL, Urine Sperm (Auto) 07/31/18 06:05: Nucleated Red Blood Cells % (auto) 0.0, Anion Gap 7L, Glomerular Filtration Rate 55.5, Blood Urea Nitrogen 10, Creatinine 1.09, Sodium Level 141, Potassium Level 3.5, Chloride Level 109H, Carbon Dioxide Level 25, Calcium Level 8.6, Aspartate Amino Transf (AST/SGOT) 18, Alanine Aminotransferase (ALT/SGPT) 22, Alkaline Phosphatase 152H, Total Bilirubin 0.4, Total Protein 7.1, Albumin 2.6L, Albumin/Globulin Ratio 0.58L CBC/BMP Laboratory Tests 07/31/18 06:05 Red Blood Count 3.61 L, Mean Corpuscular Volume 93.6, Mean Corpuscular Hemoglobin 30.2, Mean Corpuscular Hemoglobin Concent 32.2, Red Cell Distribution Width 15.0 H, Calcium Level 8.6, Aspartate Amino Transf (AST/SGOT) 18, Alanine Aminotransferase (ALT/SGPT) 22, Alkaline Phosphatase 152 H, Total Bilirubin 0.4, Total Protein 7.1, Albumin 2.6 L Microbiology Microbiology 07/21/18 MRSA Screen - Final, Complete 07/21/18 Gram Stain - Final, Complete 07/21/18 Sputum Culture - Final, Complete Staphylococcus Aureus Discharge Medications Scheduled Aspirin (Aspir 81) 81 Mg Tablet.dr, 81 MG PO DAILY, (Reported) Atorvastatin Calcium (Atorvastatin Calcium) 40 Mg Tablet, 40 MG PO QHS, (Reported) Calcium Carbonate (Calcium Carbonate) 600 Mg Tablet, 600 MG PO DAILY, (Reported) Cholecalciferol (Vitamin D3) (Vitamin D3) 2,000 Unit Tablet, 2,000 UNIT PO DAILY, (Reported) Pantoprazole Sodium (Pantoprazole Sodium) 40 Mg Tablet.dr, 40 MG PO BID Potassium Chloride (Potassium Chloride) 20 Meq Packet, 20 MEQ PO DAILY Ticagrelor Base (Brilinta) 90 Mg Tablet, 90 MG PO BID, (Reported) Scheduled PRN Guaifenesin (Mucinex) 600 Mg Tab.er.12h, 600 MG PO DAILY PRN for CONGESTION, (Reported) Ipratropium/Albuterol Sulfate (Combivent Respimat 20-100 Mcg) 4 Gm Mist.inhal, 1 PUFF INH Q6H PRN for SHORTNESS OF BREATH, (Reported) Nitroglycerin (Nitroglycerin) 0.4 Mg Tab.subl, 0.4 MG SL NITRO PRN for CHEST PAIN, (Reported) Allergies Coded Allergies: No Known Allergies (Unverified , 01/25/18) RAFAEL AGGARWAL MD Jul 31, 2018 09:15
== END 2018-07-31 10:40 | disposition home or self-care (01) | DRG 720 ==
LOC: M ED 15:21 → M ED INP 20:05 → M ICU 21:09 → M PCU 07-28 19:30 → M MSPAV 07-30 13:32
PROVIDERS: ADMIT Internal Medicine Nephrology; ATTEND Internal Medicine
PROC: 02HV33Z Insertion of Infusion Device into Superior Vena Cava, Percutaneous Approach (ICD-10-PCS; 2018-07-20)
PROC: 30233N1 Transfusion of Nonautologous Red Blood Cells into Peripheral Vein, Percutaneous Approach (ICD-10-PCS; principal; 2018-07-20 23:42)
PROC: 0DJ08ZZ Inspection of Upper Intestinal Tract, Via Natural or Artificial Opening Endoscopic (ICD-10-PCS; 2018-07-21)
DX: A41.9 Sepsis, unspecified organism (principal); R65.21 Severe sepsis with septic shock; K92.0 Hematemesis; J18.9 Pneumonia, unspecified organism; D62 Acute posthemorrhagic anemia; G35 Multiple sclerosis; E87.6 Hypokalemia; I25.10 Atherosclerotic heart disease of native coronary artery without angina pectoris; I25.2 Old myocardial infarction; Z79.82 Long term (current) use of aspirin; Z79.899 Other long term (current) drug therapy; Z95.2 Presence of prosthetic heart valve; S22.49XD Multiple fractures of ribs, unspecified side, subsequent encounter for fracture with routine healing; D35.00 Benign neoplasm of unspecified adrenal gland

== ENCOUNTER → 2018-09-27 | Outpatient (CLI) | payer OTHER ==
[~2018-09-27] MED LIST: AMOX875T2 PO; ASPI81TA85 PO; ATOR40TA75 PO; BRIL90TA PO; CALC600T3 PO; COMBAER6 INH; D 202000 PO; GUAI20TA PO; MUCI600T31 PO; NITR0.4S14 SL; PANT40TA3 PO; POTA20PW PO; POTA20TA6 PO; PROTPAK PO
--- NOTE | 2018-09-27 10:18 | REPMRS ---
Patient History The patient states she had a clinical breast exam in 09/2018. No known family history of cancer. Benign FNA biopsy of the left breast, March 22, 2013. Benign cyst aspiration, 2009. Benign stereotatic breast biopsy, 2004. 3D TOMOSYNTHESIS WAS PERFORMED. [facility] for [facility] cancer [facility] 8.3%. Digital Woman Screen Mammo: September 27, 2018 - Exam #: [id number] Bilateral CC and MLO view(s) were taken. Technologist: Adeola Duckworth, Technologist Prior study comparison: July 09, 2017, digital woman screen mammo performed at [facility]. July 08, 2016, digital woman screen mammo performed at [facility]. FINDINGS: The breast tissue is heterogeneously dense. This may lower the sensitivity of mammography. There has been no change in the appearance of the mammogram from the prior studies. There is a moderate amount of residual fibroglandular tissue which is fairly symmetric. There is no interval development of dominant mass, areas of architectural distortion, or clustered microcalcification typical of malignancy. Assessment: BI-RADS/ACR category 1 mammogram. Negative Mammogram. Recommendation Routine screening mammogram in 1 year (for women over age 40). This mammogram was interpreted with the aid of an FDA-approved computer-aided dectection system. Electronically Signed By: Nick Gan MD 09/27/18 [id number]
== END ==
LOC: M WHC 08:43
PROVIDERS: ATTEND Nurse Practitioner Women's Health
DX: Z12.31 Encounter for screening mammogram for malignant neoplasm of breast (principal)

== ENCOUNTER → 2018-09-27 | Outpatient (REF) | payer OTHER ==
[2018-09-29 14:47] LABS: HPV HYBRID CAPTURE II Positive (Negative)
== END ==
LOC: M SFHCWAGY 10:10
PROVIDERS: ATTEND Nurse Practitioner Women's Health
DX: R87.610 Atypical squamous cells of undetermined significance on cytologic smear of cervix (ASC-US) (principal)
CPT/HCPCS: 87624; G0123

== ENCOUNTER 2018-10-06 08:53 | Outpatient (RCR) | payer OTHER ==
--- NOTE | 2018-09-13 15:26 | CARECAPL ---
Assessment Account #s: Initial Assessment General Diagnoses: STEMI Date of event: Jun 29, 2018 Physician: Jr Pierce Collins Allergies: Coded Allergies: No Known Allergies (Unverified , 01/25/18) Date Entered Program: Sep 13, 2018 Risk strat for cardiac event: High Exercise Date: Sep 13, 2018 Assessment: Initial Assessment (PATIENT HAS MS, USES CANE, LIMITED ROM WITH RIGHT ARM/LEG) Exercise Prescription Plan TO EDUCATE AND BUILD ENDURANCE THROUGH MONITORED EXERCISE Modalities initiated: Nustep (WILL ADD), Arm Aerometer (WILL ADD), Dumbells (WILL ADD), Recumbent Bike (WILL ADD) Frequency: 3 Duration (Minutes) 30-60 minutes total exercise a day. 10-12 work intervals in minutes. 5 MIN PRN rest intervals in minutes. Functional Capacity Goal Sustained Metabolic Equivalent of a task (MET) goal of 1.5-2.5 for 15-20 minutes. Intensity: 3-Moderate Progression (METS) Increase by: 0.5 METS every: 5 sessions Angina with ex: No Target Heart Rate 99-132 BASED ON AGE PREDICTED Resistance Training: Yes Weight (pounds): 1 Reps: 8-12 Hypertension: Yes Hypertension controlled with: Diet Resting 136/72 Peak Exercise BP NO EXERCISE TODAY Medications Scheduled Aspirin (Aspir 81), 81 MG PO DAILY, (Reported) Atorvastatin Calcium (Atorvastatin Calcium), 40 MG PO QHS, (Reported) Calcium Carbonate (Calcium Carbonate), 600 MG PO DAILY, (Reported) Cholecalciferol (Vitamin D3) (Vitamin D3), 2,000 UNIT PO DAILY, (Reported) Pantoprazole Sodium (Pantoprazole Sodium), 40 MG PO BID Potassium Chloride (Potassium Chloride), 20 MEQ PO DAILY Ticagrelor Base (Brilinta), 90 MG PO BID, (Reported) Scheduled PRN Guaifenesin (Mucinex), 600 MG PO DAILY PRN for CONGESTION, (Reported) Ipratropium/Albuterol Sulfate (Combivent Respimat 20-100 Mcg), 1 PUFF INH Q6H PRN for SHORTNESS OF BREATH, (Reported) Nitroglycerin (Nitroglycerin), 0.4 MG SL NITRO PRN for CHEST PAIN, (Reported) Current BP 136/72 Med Change: No Intervention Resistance Training: Yes Education: Self pulse, Ex safety, S/S to report, Low NA diet, BP medication, RPE Scale, Equipment orientation, warm up/cool down, Understand BP, Physical Active Target Goals Individual exercise Rx (1) BP 140/90 or 130/80 if DM or CKD (1) Aerobic active 30+min 5 days per week (1) Nutrition Date: Sep 13, 2018 Assessment: Initial Assessment Lipid- med/supplement ATORVASTATIN Diabetes Diabetes: No Monitor Blood Sugar at home: No Medication Change: No Weight Management Weight (lbs): 145.2 Height (inches): 62 Waist Circumference (Inches): 36 BMI: 27.4 Special Diet: low salt Alcohol: none Diet Access Tool: Rate your plate Score: 48 Current Weight (pounds): 145.2 Intervention Nurse/patient discussion: Yes Dietary Goals TO MAKE HEART HEALTHY CHOICES Diet Class: Yes Referral to Diabetes education: No Referral to lipid clinic: No Referral to weight mangement p: No Education Eating Healthy Target goal LDL-C<100 if triglycerides are >200 Non-HDL-C should be <130 (1) LDL-C<70 for high risk patients (4) HbA1c<7% (1) BMI<25 Waist cir<40in M/<35in F (1) Education Date: Sep 13, 2018 Assessment: Initial Assessment Learning Barriers: ready Knowledge Test Score: 10 Family Support: Yes Tobacco use: Yes Quit: <6 months Tobacco Use Date quit: Jun 29, 2008 Cigarettes smoked per day: 20 (QUIT 06/29/18) Smokeless tobacco: No Intervention Referral to smoking cessation: No Individual education and couns: Yes Tobacco Adjunct: No Education class schedule given: No Attended education classes: No Education: tobacco triggers, CAD, Risk factors, med compliance, cardiac A&P, Angina S/S, Sexuality Target Goals Complete cessation of tobacco use (1). Psychosocial Date: Sep 13, 2018 Assessment: Initial Assessment Psych Test (Initial/Discharge) Tool Used: CESD (>16 - SENT RESULTS TO DR. PIERCE) Score: 22 Intervention Physician Consult: No Physician Referral: No Psychotropic medication NONE Med Change: No Stress Management Class: No Uses Stress Management Skills: Yes Education Education: Coping Techniques, S/S depression, Relaxation Techniques Target Goal Assess presence or absence of depression using a valid screening tool (1). Maximize coping skills (2). Positive support system (2). Patient/Program Goal Preventative Medication: Yes Aspirin, Yes Statin/OTR lipid Lowering Fall Risk Assess: Yes (PATIENT HAS MS, USES CANE) Assisstive Device: cane Provider Assessment Session Number: 1 Provider Assessment: Proceed with rehab Magnus Galvez RN Sep 13, 2018 15:26
--- NOTE | 2018-10-11 14:04 | CARECAPL ---
Assessment Account #s: Re-Assessment I General Diagnoses: STEMI Date of event: August 29, 2018 Physician: Jr García Collins Allergies: Coded Allergies: No Known Allergies (Unverified , 01/25/18) Date Entered Program: Oct 13, 2008 Risk strat for cardiac event: High Exercise Date: Oct 11, 2018 Assessment: Re-Assessment I Exercise Prescription Plan to build endurance and strength through a monitored exercise program, to educate about cardiac disease Modalities initiated: Nustep (l3 mts 3.6, rpe 4), Arm Aerometer (1.0 rpe 3.5 mts 2.3), Dumbells (2# 3.5), Recumbent Bike Frequency: 3 Duration (Minutes) 30-60 minutes total exercise a day. 6-15 work intervals in minutes. prn rest intervals in minutes. Functional Capacity Goal Sustained Metabolic Equivalent of a task (MET) goal of 3.0-4.0 for 15-20 minutes. Intensity: 4-Quite a bit Progression (METS) Increase by: .5 METS every: 2-3 sessions Angina with ex: Yes Target Heart Rate 99-132 age predictor Resistance Training: Yes Weight (pounds): 2 Reps: 8-12 Medications Scheduled Aspirin (Aspir 81), 81 MG PO DAILY, (Reported) Atorvastatin Calcium (Atorvastatin Calcium), 40 MG PO QHS, (Reported) Calcium Carbonate (Calcium Carbonate), 600 MG PO DAILY, (Reported) Cholecalciferol (Vitamin D3) (Vitamin D3), 2,000 UNIT PO DAILY, (Reported) Pantoprazole Sodium (Protonix), 40 MG PO BID, (Reported) Potassium Chloride (Potassium Chloride), 20 MEQ PO DAILY Ticagrelor Base (Brilinta), 90 MG PO BID, (Reported) Current BP 138/80 Med Change: No Education Goals Met: No (progressing toward goals) Target Goals Individual exercise Rx (1) BP 140/90 or 130/80 if DM or CKD (1) Aerobic active 30+min 5 days per week (1) Nutrition Date: Oct 11, 2018 Assessment: Re-Assessment I Current Weight (pounds): 151 Weight Goal 135 Intervention Insight Director Consult: Yes (completed 10/11/2018) Dietary Goals smaller portions and better choices Referral to Diabetes education: No Referral to lipid clinic: No Referral to weight mangement p: No Education Eating Healthy Education Goals Met: No (progressing toward goals) Target goal LDL-C<100 if triglycerides are >200 Non-HDL-C should be <130 (1) LDL-C<70 for high risk patients (4) HbA1c<7% (1) BMI<25 Waist cir<40in M/<35in F (1) Education Date: Oct 11, 2018 Assessment: Re-Assessment I Intervention Education class schedule given: Yes Attended education classes: Yes Education: CAD, med compliance, cardiac A&P Education Goals Met: No (progressing toward goals) Target Goals Complete cessation of tobacco use (1). Psychosocial Date: Oct 11, 2018 Assessment: Initial Assessment Intervention Physician Consult: No Physician Referral: No Stress Management Class: Yes Uses Stress Management Skills: Yes Education Education: S/S depression, Relaxation Techniques Education Goals Met: Yes Target Goal Assess presence or absence of depression using a valid screening tool (1). Maximize coping skills (2). Positive support system (2). Fall Risk Assess: Yes Assisstive Device: cane Provider Assessment Session Number: 9 Provider Assessment: No changes Krissy Conner RN Oct 11, 2018 14:04
== END 2018-10-10 ==
LOC: M CR 08:53
PROVIDERS: ATTEND Internal Medicine
DX: I21.3 ST elevation (STEMI) myocardial infarction of unspecified site (principal); Z98.61 Coronary angioplasty status

== ENCOUNTER → 2018-11-08 | Outpatient (REF) | payer OTHER | LOC: M SFHCWAGY 13:46 | PROVIDERS: ATTEND Nurse Practitioner Women's Health | DX: R87.810 Cervical high risk human papillomavirus (HPV) DNA test positive (principal); R87.610 Atypical squamous cells of undetermined significance on cytologic smear of cervix (ASC-US) ==

== ENCOUNTER → 2018-11-10 | Outpatient (RCR) | payer OTHER ==
--- NOTE | 2018-11-03 14:22 | CARECAPL ---
General Diagnoses: STEMI Date of event: August 29, 2018 Physician: Jr García Collins Allergies: Coded Allergies: No Known Allergies (Unverified , 01/25/18) Date Entered Program: Sep 13, 2018 Risk strat for cardiac event: High Exercise Date: Oct 27, 2018 Assessment: Re-Assessment II Exercise Prescription Plan educate and increase endurance and flexibility through monitored exercise Modalities initiated: Cardio-Strider (resistance of 2 for 15 minutes mets 2.7 RPE 4), Nustep (level 3 for 15 minutes mets 3.7 RPE 3.5), Arm Aerometer (resistance 2.0 for 7 minutes mets 2.8 RPE 3.5), Dumbells (3lbs 2 sets 8-12 reps RPE 3.5) Frequency: 2-3 Duration (Minutes) 30-60 minutes total exercise a day. 15-20 work intervals in minutes. prn rest intervals in minutes. Functional Capacity Goal Sustained Metabolic Equivalent of a task (MET) goal of 4.0-4.5 for 15-20 minutes. Intensity: 3-Moderate Progression (METS) Increase by: 0.5 METS every: 3-5 sessions Angina with ex: No Target Heart Rate 99-132 age predicted 65% to 85% Resistance Training: Yes Weight (pounds): 3 Reps: 8-12 Resting 112/78 Peak Exercise BP 170/90 Meds none Medications Scheduled Aspirin (Aspir 81), 81 MG PO DAILY, (Reported) Atorvastatin Calcium (Atorvastatin Calcium), 40 MG PO QHS, (Reported) Calcium Carbonate (Calcium Carbonate), 600 MG PO DAILY, (Reported) Cholecalciferol (Vitamin D3) (Vitamin D3), 2,000 UNIT PO DAILY, (Reported) Pantoprazole Sodium (Protonix), 40 MG PO BID, (Reported) Potassium Chloride (Potassium Chloride), 20 MEQ PO DAILY Ticagrelor Base (Brilinta), 90 MG PO BID, (Reported) Current BP 112/78 Med Change: No Intervention Education: Self pulse (patient demonstrated independence.), Ex safety (patient stated to drink plenty of water to stay hydrated, wear comfortable clothing and shoes.), S/S to report (patient stated symptoms to report is chest pressure, N/V and excessive sweating. ), Low NA diet (patient stated ways of lower sodium in her diet such as using mrs dash, and not adding salt when cooking. ), BP medication (Discussed importance of atorvastatin and brilinta their functions and purpose.), RPE Scale (patient demonstrates independence), Equipment orientation (patient demonstrated independence ), warm up/cool down (patient demonstrates independence), Understand BP (patient verbalized understanding what her BP number are and what they mean.), Physical Active (patient verbalized understanding to continue to exercise after classes. ) Education Goals Met: Yes Target Goals Individual exercise Rx (1) BP 140/90 or 130/80 if DM or CKD (1) Aerobic active 30+min 5 days per week (1) Nutrition Date: Nov 03, 2018 Assessment: Re-Assessment II Med Change: No Medication Change: No Current Weight (pounds): 151 Intervention Nurse/patient discussion: Yes Dietary Goals eat healthier portions Diet Class: Yes Education Goals Met: Yes Target goal LDL-C<100 if triglycerides are >200 Non-HDL-C should be <130 (1) LDL-C<70 for high risk patients (4) HbA1c<7% (1) BMI<25 Waist cir<40in M/<35in F (1) Education Date: Nov 03, 2018 Assessment: Re-Assessment II Intervention Education: Risk factors (Patient verbalized importance of knowing her number such as cholersterol, trigyclerides, HDL and LDL.), med compliance (patient states she is 100% compliant with medication regimen and understanding importance of taking medications.), cardiac A&P (Patient verbalized understanding of each chamber of heart and how they function.), Angina S/S (Patient verbalized s/s of angina such as chest pressure with walking and goes away with rest.), Sexuality (Patient stated understanding no sex until cleared by MD.) Education Goals Met: Yes Target Goals Complete cessation of tobacco use (1). Psychosocial Date: Nov 03, 2018 Assessment: Re-Assessment II Med Change: No Stress Management Class: Yes Uses Stress Management Skills: Yes Education Education: Coping Techniques (patient states she will put herself first ), S/S depression (Patient stated withdrawal and loss of appetite are s/s of depression.), Relaxation Techniques (patient states she will read a book, mediate and listen to music.) Education Goals Met: Yes Target Goal Assess presence or absence of depression using a valid screening tool (1). Maximize coping skills (2). Positive support system (2). Patient/Program Goal Preventative Medication: Yes Statin/OTR lipid Lowering, Yes Other (brilinta) Fall Risk Assess: Yes (fall risk) Provider Assessment Session Number: 14 Provider Assessment: Proceed with rehab (progressing) Kindra Buchanan RN Nov 03, 2018 13:23
== END ==
LOC: M CR 10-11 09:16
PROVIDERS: ATTEND Internal Medicine
DX: I21.3 ST elevation (STEMI) myocardial infarction of unspecified site (principal); Z98.61 Coronary angioplasty status

== ENCOUNTER 2018-12-10 08:07 | Outpatient (RCR) | payer OTHER ==
--- NOTE | 2018-11-24 08:59 | CARECAPL ---
Assessment Account #s: Re-Assessment II (reassessment III) General Date of event: August 29, 2018 Physician: Jr García Collins Allergies: Coded Allergies: No Known Allergies (Unverified , 01/25/18) Date Entered Program: Sep 13, 2018 Risk strat for cardiac event: High Exercise Date: Nov 24, 2018 Assessment: Re-Assessment II (reassessment III) Exercise Prescription Modalities initiated: Cardio-Strider (R2 mts 2.7 rpe 4 13 minutes), Nustep (l4 mts 3.9 rpe 4 15 minutes), Arm Aerometer (2.0 mts 3.2 rpe 3.5 10 minutes), Dumbells Duration (Minutes) minutes total exercise a day. work intervals in minutes. rest intervals in minutes. Functional Capacity Goal Sustained Metabolic Equivalent of a task (MET) goal of 4.0-4.5 for 15-20 min utes. Intensity: 4-Quite a bit Progression (METS) Increase by: METS every: sessions Angina with ex: No Resistance Training: Yes Weight (pounds): 3 Reps: 8-12 Medications Scheduled Aspirin (Aspir 81), 81 MG PO DAILY, (Reported) Atorvastatin Calcium (Atorvastatin Calcium), 40 MG PO QHS, (Reported) Calcium Carbonate (Calcium Carbonate), 600 MG PO DAILY, (Reported) Cholecalciferol (Vitamin D3) (Vitamin D3), 2,000 UNIT PO DAILY, (Reported) Pantoprazole Sodium (Protonix), 40 MG PO BID, (Reported) Potassium Chloride (Potassium Chloride), 20 MEQ PO DAILY Ticagrelor Base (Brilinta), 90 MG PO BID, (Reported) Current BP 140/84 Intervention Home exercise: Type (walking, home exercise equipment), Frequency (3-4 times per week), Duration (30-60 minutes) Resistance Training: Yes ( 12-15 minutes 3.5 times per week) Education: Self pulse (location and time), Ex safety (hydration), S/S to report (light headedness, dizziness, chest discomfort), Low NA diet (monitoring salt intake, measuring content of sodium, avoiding high na foods), BP medication (taking bp with home machine prior to exercise and weekly), RPE Scale (scale 1-5 (5 unable to finish)), Equipment orientation (spent time with all equipment), warm up/cool down (safety, prevent injury), Understand BP (normal range and baseline), Physical Active (encourage continuation of exercise and being active) Education Goals Met: No (working toward goals) Target Goals Individual exercise Rx (1) BP 140/90 or 130/80 if DM or CKD (1) Aerobic active 30+min 5 days per week (1) Nutrition Date: Nov 24, 2018 Assessment: Re-Assessment II (reassessment III) Med Change: No Current Weight (pounds): 148.6 Intervention Arresting Gear Operator Consult: No Nurse/patient discussion: Yes Diet Class: Yes (seen feeder worker power unit operator in group on 10/11/2018) Referral to Diabetes education: No Referral to lipid clinic: No Referral to weight mangement p: No Education Eating Healthy (review with feeder worker power unit operator) Education Goals Met: Yes Target goal LDL-C<100 if triglycerides are >200 Non-HDL-C should be <130 (1) LDL-C<70 for high risk patients (4) HbA1c<7% (1) BMI<25 Waist cir<40in M/<35in F (1) Education Date: Nov 24, 2018 Assessment: Re-Assessment II (reassessment III) Intervention Attended education classes: Yes Education Goals Met: Yes (goals met) Target Goals Complete cessation of tobacco use (1). Psychosocial Date: Nov 24, 2018 Assessment: Re-Assessment II (reassessment III) Intervention Physician Consult: No Physician Referral: No Stress Management Class: Yes Uses Stress Management Skills: Yes Target Goal Assess presence or absence of depression using a valid screening tool (1). Maximize coping skills (2). Positive support system (2). Fall Risk Assess: Yes Assisstive Device: cane (has MS uses cane for balance) Provider Assessment Session Number: 21 Provider Assessment: No changes (excellent attendance. Works very hard and has excellent attitude) Krissy Conner RN Nov 24, 2018 08:59
--- NOTE | 2018-12-10 10:05 | CARECAPL ---
Assessment Account #s: Re-Assessment II (DISCHARGE) General Diagnoses: Stent, STEMI Date of event: August 29, 2018 Physician: Jr García Collins Allergies: Coded Allergies: No Known Allergies (Unverified , 01/25/18) Date Entered Program: Sep 13, 2018 Risk strat for cardiac event: High Exercise Date: Dec 10, 2018 Assessment: Followup/Discharge Exercise Prescription Plan TO EDUCATE AND BUILD ENDURANCE THROUGH MONITORED EXERCISE Modalities initiated: Cardio-Strider (METS=2.6/RPE=3.5), Nustep (METS=3.1/RPE=3.5), Arm Aerometer (METS=3.3/RPE=3.5), Dumbells (4#/RPE=3.5) Frequency: 3 Duration (Minutes) 30-60 minutes total exercise a day. 12-15 work intervals in minutes. 5 MIN NEEDED rest intervals in minutes. Functional Capacity Goal Sustained Metabolic Equivalent of a task (MET) goal of 4.0-4.5 for 15-20 minutes. Intensity: 3-Moderate Progression (METS) Increase by: METS every: sessions Angina with ex: No Weight (pounds): 4 Reps: 12-15 Resting 142/90 Peak Exercise BP 160/90 Medications Scheduled Aspirin (Aspir 81), 81 MG PO DAILY, (Reported) Atorvastatin Calcium (Atorvastatin Calcium), 40 MG PO QHS, (Reported) Calcium Carbonate (Calcium Carbonate), 600 MG PO DAILY, (Reported) Cholecalciferol (Vitamin D3) (Vitamin D3), 2,000 UNIT PO DAILY, (Reported) Pantoprazole Sodium (Protonix), 40 MG PO BID, (Reported) Potassium Chloride (Potassium Chloride), 20 MEQ PO DAILY Ticagrelor Base (Brilinta), 90 MG PO BID, (Reported) Current BP 120/80 Med Change: No Intervention Home exercise: Type (WALKING, HOME EXERCISE EQUIPMENT), Frequency (3-5 TIMES PER WEEK), Duration (30-60 MINUTES) Resistance Training: Yes Education: Self pulse (LOCATION AND TIME), Ex safety (HYDRATION), S/S to report (CHEST DISCOMFORT,SOB,DIZZINESS), Low NA diet (AVOIDING HIGH NA FOODS,MONITORING SALT INTAKE), BP medication (TAKING B/P AT HOME AND COMPLIANCE WITH B/P MEDS), RPE Scale (1-5 SCALE FOR RATING DIFFICULTY OF EQUIPMENT), Equipment orientation (ORIENTED TO EACH PIECE OF EQUIPMENT, DEMONSTATES INDEPENDENTLY), warm up/cool down (FOR SAFE EXERCISE, TO AVOID INJURY), Understand BP (DISCUSSED NORMAL RANGE AND BASELINE), Physical Active (ENCOURAGED PT TO CONTINUE EXERCISE FOLLOWING CARDIAC REHAB PROGRAM) Education Goals Met: Yes (PATIENT ATTENDED WELL AND RECEPTIVE TO EDUCATION) Target Goals Individual exercise Rx (1) BP 140/90 or 130/80 if DM or CKD (1) Aerobic active 30+min 5 days per week (1) Nutrition Date: Dec 10, 2018 Assessment: Followup/Discharge Lipid- med/supplement ATORVASTATIN 40 MG DAILY Med Change: No Diabetes Diabetes: No Monitor Blood Sugar at home: No Medication Change: No Weight Management Weight (lbs): 145 Height (inches): 61 Waist Circumference (Inches): 36 BMI: 27.4 Weight goal: 125 Special Diet: low salt, mediteranean diet, low-fat Vitamin/Supplements: Vitamin D Diet Access Tool: Rate your plate Score: 57 Current Weight (pounds): 145 Weight Goal 125 Intervention Mule Developer Consult: No Nurse/patient discussion: Yes Dietary Goals CHOOSE HEART HEALTHY DIET/SMALLER PORTIONS Diet Class: Yes (MET WITH CASE ASSEMBLER WHILE IN PROGRAM) Referral to Diabetes education: No Referral to lipid clinic: No Referral to weight mangement p: No Education Eating Healthy Education Goals Met: Yes (PATIENT HAS BEEN VERY MOTIVATED,RECEPTIVE TO EDUCATION) Target goal LDL-C<100 if triglycerides are >200 Non-HDL-C should be <130 (1) LDL-C<70 for high risk patients (4) HbA1c<7% (1) BMI<25 Waist cir<40in M/<35in F (1) Education Date: Dec 10, 2018 Assessment: Followup/Discharge Learning Barriers: ready Knowledge Test Score: 9 Family Support: Yes Tobacco use: No Quit: <6 months Tobacco Use Date quit: August 29, 2018 Smokeless tobacco: No Intervention Referral to smoking cessation: No Individual education and couns: Yes Tobacco Adjunct: No Education class schedule given: No Attended education classes: No Education: tobacco triggers, CAD, Risk factors, med compliance, cardiac A&P, Angina S/S, Sexuality Education Goals Met: Yes Target Goals Complete cessation of tobacco use (1). Psychosocial Date: Dec 10, 2018 Assessment: Followup/Discharge Psych Test (Initial/Discharge) Tool Used: Other (DEPRESSION SCREENING TOOL) Score: 6 (MILD DEPRESSION) Intervention Physician Consult: No Physician Referral: No Med Change: No Stress Management Class: No Uses Stress Management Skills: Yes Education Education: Coping Techniques, S/S depression, Relaxation Techniques Education Goals Met: Yes Target Goal Assess presence or absence of depression using a valid screening tool (1). Maximize coping skills (2). Positive support system (2). Patient/Program Goal Preventative Medication: Yes Aspirin, Yes Statin/OTR lipid Lowering Fall Risk Assess: Yes (PATIENT USES CANE FOR HER MS) Assisstive Device: cane Provider Assessment Session Number: 28 Provider Assessment: No changes (EXCELLENT ATTENDENCE AND RECEPTIVE TO EDUCATION,PLANS TO CONTINUE WITH MEET PROGRAM) Magnus Galvez RN Dec 10, 2018 10:05
== END 2018-12-11 ==
LOC: M CR 08:07
PROVIDERS: ATTEND Internal Medicine
DX: Z98.61 Coronary angioplasty status (principal); I21.3 ST elevation (STEMI) myocardial infarction of unspecified site

== ENCOUNTER 2018-12-17 08:42 | Outpatient (RCR) | payer OTHER | END 2019-01-10 | LOC: M CR 08:42 | PROVIDERS: ATTEND Internal Medicine | DX: Z98.61 Coronary angioplasty status (principal); I21.3 ST elevation (STEMI) myocardial infarction of unspecified site ==

== ENCOUNTER → 2018-12-21 | Outpatient (REF) | payer OTHER | LOC: M LAB REF 14:52 | PROVIDERS: ATTEND Obstetrics & Gynecology | DX: N87.1 Moderate cervical dysplasia (principal) ==

== ENCOUNTER 2019-01-08 07:06 | Emergency (ER) | payer OTHER ==
[~2019-01-08] VITALS: Ht 157.5 cm; Wt 69.5 kg
[2019-01-08] MEDS ORDERED: NS 1,000 ML IV ONE (07:30)
[2019-01-08 08:17] LABS: HEMATOCRIT 28.4 % (36.0-47.0); HEMOGLOBIN 9.4 g/dl (12.0-15.5); MEAN CORPUSCULAR HEMOGLOBIN 31.2 pg (27.0-33.0); MEAN CORPUSCULAR HGB CONC 33.1 g/dl (32.0-36.5); MEAN CORPUSCULAR VOLUME 94.4 fl (80.0-96.0); PLATELET COUNT, AUTOMATED 306 10^3/uL (150-450); RED BLOOD COUNT 3.01 10^6/uL (4.00-5.40); WHITE BLOOD COUNT 5.3 10^3/uL (4.0-10.0)
[2019-01-08 08:30] VITALS: BP 138/74
[2019-01-08 08:34] LABS: INR 0.98; PROTHROMBIN TIME 12.7 SECONDS (11.8-14.0)
[2019-01-08] MEDS ORDERED: SILVER NITRATE APPLICATOR TOP ONE (09:30)
== END 2019-01-08 11:45 | disposition home or self-care (01) ==
LOC: M ED 07:06
DX: N99.821 Postprocedural hemorrhage of a genitourinary system organ or structure following other procedure (principal); I25.2 Old myocardial infarction; K21.9 Gastro-esophageal reflux disease without esophagitis; Z95.5 Presence of coronary angioplasty implant and graft; K27.9 Peptic ulcer, site unspecified, unspecified as acute or chronic, without hemorrhage or perforation; Z79.82 Long term (current) use of aspirin; Z79.899 Other long term (current) drug therapy

== ENCOUNTER 2019-03-28 09:18 | Outpatient (RCR) | payer OTHER | END 2019-04-12 | LOC: M CR 09:18 | PROVIDERS: ATTEND Internal Medicine | DX: I21.3 ST elevation (STEMI) myocardial infarction of unspecified site (principal); Z98.61 Coronary angioplasty status ==

== ENCOUNTER 2019-05-25 14:00 | Outpatient (RCR) | payer OTHER | END 2019-06-11 | LOC: M CR 14:00 | PROVIDERS: ATTEND Internal Medicine | DX: I21.3 ST elevation (STEMI) myocardial infarction of unspecified site (principal); Z98.61 Coronary angioplasty status ==

== ENCOUNTER 2019-06-13 11:22 | Outpatient (RCR) | payer OTHER ==
[~2019-06-13] VITALS: Ht 157.5 cm; Wt 71.4 kg
== END 2019-07-12 ==
LOC: M CR 11:22
PROVIDERS: ATTEND Internal Medicine
DX: I21.3 ST elevation (STEMI) myocardial infarction of unspecified site (principal); Z98.61 Coronary angioplasty status

== ENCOUNTER → 2019-09-29 | Outpatient (REF) | payer OTHER | LOC: M SFHCWAGY 11:51 | PROVIDERS: ATTEND Nurse Practitioner Women's Health | DX: Z12.4 Encounter for screening for malignant neoplasm of cervix (principal); Z98.890 Other specified postprocedural states; Z01.419 Encounter for gynecological examination (general) (routine) without abnormal findings ==

== ENCOUNTER → 2019-09-29 | Outpatient (CLI) | payer OTHER ==
[~2019-09-29] MED LIST changes: +ASPI81TA26 PO; -ASPI81TA85 PO; +ASPI81TA86 PO; -CALC600T3 PO; +CALC600T86 PO; +D31000TA2 PO; +EZET10TA21 PO; +PANT40TA29 PO; -PANT40TA3 PO; +PLAV1TAB2 PO
--- NOTE | 2019-09-30 08:24 | REPMRS ---
Patient History The patient states she had a clinical breast exam in September 2019.No known family history of cancer. Benign FNA biopsy of the left breast, March 22, 2013. Benign cyst aspiration, 2009. Benign stereotatic breast biopsy, 2004. Digital Woman Screen Mammo: September 29, 2019 - Exam #: [id number] Bilateral CC and MLO view(s) were taken. Technologist: Isidra Warner, Technologist Prior study comparison: September 27, 2018, bilateral digital woman screen mammo performed at [facility]. July 09, 2017, digital woman screen mammo performed at [facility]. July 08, 2016, digital woman screen mammo performed at [facility]. FINDINGS: The breast tissue is heterogeneously dense. This may lower the sensitivity of mammography. The Volpara volumetric breast density category is: C. There is a moderate amount of heterogeneously dense fibroglandular tissue which is fairly symmetric. There is no interval development of dominant mass, architectural distortion, or grouped microcalcification typical of malignancy. There has been no change in the appearance of the mammogram from the prior studies. 3-D tomosynthesis shows no additional findings. Assessment: BI-RADS/ACR category 1 mammogram. Negative Mammogram. Recommendation Routine screening mammogram of both breasts in 1 year (for women over age 40). This patient's Lifetime Breast Cancer RIsk is estimated at 8.1 %. This mammogram was interpreted with the aid of an FDA-approved computer-aided dectection system. Electronically Signed By: Lester Montero MD 09/30/19 [id number]
== END ==
LOC: M WHC 08:07
PROVIDERS: ATTEND Nurse Practitioner Women's Health
DX: Z12.31 Encounter for screening mammogram for malignant neoplasm of breast (principal)

== ENCOUNTER → 2019-10-31 | Outpatient (REF) | payer OTHER | LOC: M SFHCWAGY 08:57 | PROVIDERS: ATTEND Nurse Practitioner Women's Health | DX: R87.612 Low grade squamous intraepithelial lesion on cytologic smear of cervix (LGSIL) (principal) ==

== ENCOUNTER → 2019-11-18 | Outpatient (REF) | payer OTHER ==
[2019-12-26 09:29] LABS: VITAMIN B1 LEVEL WHOLE BLOOD See Separate Report; VITAMIN B6,PYRIDOXAL PHOSPHATE See Separate Report; VITAMIN E(ALPHA TOCOPHEROL) See Separate Report; VITAMIN E(GAMMA TOCOPHEROL) See Separate Report
[2019-12-26 09:30] LABS: HERPES ZOSTER, VARICELLA IgG SEE SEPARATE REPORT; JC VIRUS DNA PCR WHOLE BLOOD SEE SEPARATE REPORT
[2020-01-02 09:27] LABS: FOLATE 7.4 NG/ML; TOTAL 25(OH) VITAMIN D 60.9 NG/ML (30.0-100.0)
== END ==
LOC: M LAB REF 12:58
PROVIDERS: ATTEND Internal Medicine
DX: G35 Multiple sclerosis (principal)

== ENCOUNTER → 2020-01-27 | Outpatient (REF) | payer OTHER ==
[~2020-01-27] MED LIST changes: -ASPI81TA26 PO; -D31000TA2 PO; -EZET10TA21 PO; -PLAV1TAB2 PO
[2020-01-27 12:18] LABS: PERCENT SATURATION 26.6 % (13.2-45.0)
== END ==
LOC: M LAB REF 11:15
PROVIDERS: ATTEND Internal Medicine
DX: D62 Acute posthemorrhagic anemia (principal)

== ENCOUNTER → 2020-02-26 | Outpatient (CLI) | payer OTHER ==
[~2020-02-26] MED LIST changes: +ASPI81TA26 PO; +D31000TA2 PO; +EZET10TA21 PO; +PLAV1TAB2 PO
== END ==
LOC: M LABSMTC 10:23
PROVIDERS: ATTEND Anesthesiology
DX: Z01.812 Encounter for preprocedural laboratory examination (principal); Z20.828 Contact with and (suspected) exposure to other viral communicable diseases

== ENCOUNTER 2020-03-02 10:08 | Day surgery (SDC) | payer OTHER ==
[~2020-03-02] VITALS: Ht 157.5 cm; Wt 68.0 kg
[~2020-03-02 10:08] MED LIST changes: +NS 1,000 ML IV ONE
[2020-03-02] MEDS ORDERED: propofoL 500 MG/50 ML VIAL As Ordered ONE ×2 (10:33→13:03)
[2020-03-02] MEDS ORDERED: fentaNYL 100 MCG/2 ML INJECTION (J3010) As Ordered ONE (10:33)
--- NOTE | 2020-03-02 12:42 | ROOR ---
Patient Name: Star Lindsay Procedure Date: 03/02/2020 12:04 PM Date of : 1965 Age: 54 Room: [facility] Gender: Female Note Status: Finalized Procedure: Upper GI endoscopy Indications: Hematemesis Providers: Teofilo Kang MD Referring MD: MICHAEL PIERCE JR, MD Requesting Provider: Medicines: Monitored Anesthesia Care Complications: No immediate complications. Procedure: Pre-Anesthesia Assessment: - Prior to the procedure, a History and Physical was performed, and patient medications and allergies were reviewed. The patient is competent. The risks and benefits of the procedure and the sedation options and risks were discussed with the patient. All questions were answered and informed consent was obtained. Patient identification and proposed procedure were verified by the physician, the nurse and the anesthesiologist in the procedure room. Mental Status Examination: alert and oriented. Airway Examination: normal oropharyngeal airway and neck mobility. Respiratory Examination: clear to auscultation. CV Examination: normal. Prophylactic Antibiotics: The patient does not require prophylactic antibiotics. Prior Anticoagulants: The patient has taken Plavix (clopidogrel), last dose was 7 days prior to procedure. ASA Grade Assessment: III - A patient with severe systemic disease. After reviewing the risks and benefits, the patient was deemed in satisfactory condition to undergo the procedure. The anesthesia plan was to use monitored anesthesia care (MAC). Immediately prior to administration of medications, the patient was re-assessed for adequacy to receive sedatives. The heart rate, respiratory rate, oxygen saturations, blood pressure, adequacy of pulmonary ventilation, and response to care were monitored throughout the procedure. The physical status of the patient was re-assessed after the procedure. The Endoscope was introduced through the mouth, and advanced to the second part of duodenum. The upper GI endoscopy was accomplished without difficulty. The patient tolerated the procedure well. Findings: No gross lesions were noted in the entire esophagus. A 20 mm healed ulcer was found in the gastric fundus. The scar tissue was healthy in appearance. Scattered mild inflammation characterized by erythema and granularity was found in the gastric antrum. Biopsies were taken with a cold forceps for Helicobacter pylori testing. Verification of patient identification for the specimen was done by the physician and nurse using the patient's name, date and medical record number. Estimated blood loss was minimal. The duodenal bulb and second portion of the duodenum were normal. Impression: - No gross lesions in esophagus. - Scar in the gastric fundus. - Gastritis. Biopsied. - Normal duodenal bulb and second portion of the duodenum. Recommendation: - Patient has a contact number available for emergencies. The signs and symptoms of potential delayed complications were discussed with the patient. Return to normal activities tomorrow. Written discharge instructions were provided to the patient. - High fiber diet. - Continue present medications. - Await pathology results. - Continue present medications. - Use Protonix (pantoprazole) 40 mg PO daily - to be taken section laborer 1/2 hour before breakfast for 8 weeks. - Follow an antireflux regimen. - Telephone GI clinic for pathology results in 2 weeks. - Return to primary care physician. Procedure Code(s): --- Professional --- 08235, Esophagogastroduodenoscopy, flexible, transoral; with biopsy, single or multiple Diagnosis Code(s): --- Professional --- K31.89, Other diseases of stomach and duodenum K29.70, Gastritis, unspecified, without bleeding K92.0, Hematemesis CPT copyright 2019 [employer]. All rights reserved. The codes documented in this report are preliminary and upon primer expeditor and drier review may be revised to meet current compliance requirements. Teofilo Kang MD Teofilo Kang MD 03/02/2020 12:41:40 PM Electronically signed by Teofilo Kang MD Number of Addenda: 0 Note Initiated On: 03/02/2020 12:04 PM Estimated Blood Loss: Estimated blood loss was minimal.
--- NOTE | 2020-03-02 12:44 | ROOR ---
Patient Name: Star Lindsay Procedure Date: 03/02/2020 12:05 PM Date of : 1965 Age: 54 Gender: Female Note Status: Finalized Procedure: Colonoscopy Indications: Screening for colorectal malignant neoplasm Providers: Teofilo Kang MD Referring MD: MICHAEL PIERCE JR, MD Requesting Provider: Medicines: Monitored Anesthesia Care Complications: No immediate complications. Procedure: Pre-Anesthesia Assessment: - Prior to the procedure, a History and Physical was performed, and patient medications and allergies were reviewed. The patient is competent. The risks and benefits of the procedure and the sedation options and risks were discussed with the patient. All questions were answered and informed consent was obtained. Patient identification and proposed procedure were verified by the physician, the nurse and the anesthesiologist in the procedure room. Mental Status Examination: alert and oriented. Airway Examination: normal oropharyngeal airway and neck mobility. Respiratory Examination: clear to auscultation. CV Examination: normal. Prophylactic Antibiotics: The patient does not require prophylactic antibiotics. Prior Anticoagulants: The patient has taken no previous anticoagulant or antiplatelet agents. ASA Grade Assessment: II - A patient with mild systemic disease. After reviewing the risks and benefits, the patient was deemed in satisfactory condition to undergo the procedure. The anesthesia plan was to use monitored anesthesia care (MAC). Immediately prior to administration of medications, the patient was re-assessed for adequacy to receive sedatives. The heart rate, respiratory rate, oxygen saturations, blood pressure, adequacy of pulmonary ventilation, and response to care were monitored throughout the procedure. The physical status of the patient was re-assessed after the procedure. The Colonoscope was introduced through the anus and advanced to the terminal ileum, with identification of the appendiceal orifice and IC valve. The colonoscopy was performed without difficulty. The patient tolerated the procedure well. The quality of the bowel preparation was good. The terminal ileum, ileocecal valve, appendiceal orifice, and rectum were photographed. Scope insertion time was 3 minutes. Scope withdrawal time was 9 minutes. The total duration of the procedure was 12 minutes. Findings: The perianal and digital rectal examinations were normal. The terminal ileum appeared normal. Four sessile polyps were found in the recto-sigmoid colon. The polyps were 3 to 5 mm in size. These polyps were removed with a cold biopsy forceps. Resection and retrieval were complete. Verification of patient identification for the specimen was done by the physician and nurse using the patient's name, date and medical record number. Estimated blood loss was minimal. Non-bleeding external and internal hemorrhoids were found during endoscopy. The hemorrhoids were medium-sized. Retroflexion in the rectum was not performed due to anatomy. Impression: - The examined portion of the ileum was normal. - Four 3 to 5 mm polyps at the recto-sigmoid colon, removed with a cold biopsy forceps. Resected and retrieved. - Non-bleeding external and internal hemorrhoids. Recommendation: - Patient has a contact number available for emergencies. The signs and symptoms of potential delayed complications were discussed with the patient. Return to normal activities tomorrow. Written discharge instructions were provided to the patient. - High fiber diet. - Continue present medications. - Await pathology results. - Repeat colonoscopy in 3 - 5 years for surveillance based on pathology results. - Telephone GI clinic for pathology results in 2 weeks. - Return to primary care physician. Procedure Code(s): --- Professional --- 21984, Colonoscopy, flexible; with biopsy, single or multiple Diagnosis Code(s): --- Professional --- Z12.11, Encounter for screening for malignant neoplasm of colon K64.8, Other hemorrhoids K63.5, Polyp of colon CPT copyright 2019 [employer]. All rights reserved. The codes documented in this report are preliminary and upon manager employee relations review may be revised to meet current compliance requirements. Teofilo Kang MD Teofilo Kang MD 03/02/2020 12:44:12 PM Electronically signed by Teofilo Kang MD Number of Addenda: 0 Note Initiated On: 03/02/2020 12:05 PM Estimated Blood Loss: Estimated blood loss was minimal.
[2020-03-02 13:00] VITALS: BP 131/62
[2020-03-02] MEDS ORDERED: LIDOCAINE 2% 100MG/5ML SDV (FOR ANES.) As Ordered ONE (13:03)
== END 2020-03-02 13:25 | disposition home or self-care (01) ==
LOC: M OPP 10:08
PROVIDERS: ATTEND Internal Medicine Gastroenterology
DX: Z12.11 Encounter for screening for malignant neoplasm of colon (principal); K92.0 Hematemesis; K63.5 Polyp of colon; K64.8 Other hemorrhoids; D13.1 Benign neoplasm of stomach; K31.89 Other diseases of stomach and duodenum; K29.70 Gastritis, unspecified, without bleeding; I25.2 Old myocardial infarction; E78.5 Hyperlipidemia, unspecified; G35 Multiple sclerosis; Z95.5 Presence of coronary angioplasty implant and graft; Z92.21 Personal history of antineoplastic chemotherapy; Z79.82 Long term (current) use of aspirin; Z79.899 Other long term (current) drug therapy

== ENCOUNTER → 2020-10-01 | Outpatient (CLI) | payer OTHER ==
[~2020-10-01] MED LIST changes: -NS 1,000 ML IV ONE
--- NOTE | 2020-10-01 09:22 | REPMRS ---
Patient History The patient states she had a clinical breast exam in September 2020. No known family history of cancer. Benign FNA biopsy of the left breast, March 22, 2013. Benign cyst aspiration, 2009. Benign stereotatic breast biopsy, 2004. Patient states no breast complaints today. Patient has signed MRS History Sheet. Digital Woman Screen Mammo: October 01, 2020 - Exam #: [id number] Bilateral CC and MLO view(s) were taken. Technologist: Lashae Rush, Technologist Prior study comparison: September 29, 2019, bilateral digital woman screen mammo performed at [facility]. September 27, 2018, bilateral digital woman screen mammo performed at [facility]. July 09, 2017, digital woman screen mammo performed at [facility]. FINDINGS: There are scattered fibroglandular densities. The Volpara volumetric breast density category is: B. There is a moderate amount of residual fibroglandular tissue which is fairly symmetric. There is no interval development of dominant mass, architectural distortion, or grouped microcalcification typical of malignancy. There has been no change in the appearance of the mammogram from the prior studies. 3-D tomosynthesis shows no additional findings. Assessment: BI-RADS/ACR category 1 mammogram. Negative Mammogram. Recommendation Routine screening mammogram of both breasts in 1 year (for women over age 40). This patient's [facility] Lifetime Breast Cancer RIsk is estimated at 7.9 %. This mammogram was interpreted with the aid of an FDA-approved computer-aided dectection system. Electronically Signed By: Lester Montero MD 10/01/20 0921
== END ==
LOC: M WHC 07:50
PROVIDERS: ATTEND Nurse Practitioner Women's Health
DX: Z12.31 Encounter for screening mammogram for malignant neoplasm of breast (principal)

== ENCOUNTER → 2020-10-01 | Outpatient (REF) | payer OTHER | LOC: M SFHCWAGY 13:14 | PROVIDERS: ATTEND Nurse Practitioner Women's Health | DX: Z12.4 Encounter for screening for malignant neoplasm of cervix (principal); R87.610 Atypical squamous cells of undetermined significance on cytologic smear of cervix (ASC-US) | CPT/HCPCS: 87624; G0123 ==

== ENCOUNTER → 2020-11-05 | Outpatient (REF) | payer OTHER | LOC: M SFHCWAGY 13:01 | PROVIDERS: ATTEND Nurse Practitioner Women's Health | DX: R87.612 Low grade squamous intraepithelial lesion on cytologic smear of cervix (LGSIL) (principal) ==

== ENCOUNTER → 2020-12-19 | Outpatient (REF) | payer OTHER | LOC: M SFHCWAGY 13:01 | PROVIDERS: ATTEND Obstetrics & Gynecology | DX: N87.0 Mild cervical dysplasia (principal) ==

== ENCOUNTER → 2021-03-05 | Outpatient (REF) | payer OTHER | LOC: M LAB REF 12:28 | PROVIDERS: ATTEND Internal Medicine | DX: G35 Multiple sclerosis (principal) ==

== ENCOUNTER → 2021-04-15 | Outpatient (CLI) | payer OTHER ==
--- NOTE | 2021-04-15 10:51 | REP ---
INDICATION: ELEVATED LFTS. COMPARISON: None TECHNIQUE: Real-time sonographic evaluation of the right upper quadrant with Doppler FINDINGS: Multiple ultrasonographic images of the liver show the hepatic parenchymal echo texture to appear unremarkable. The parenchymal echoes may be mildly diffusely increased. There are no focal masses. There is no intrahepatic ductal dilatation. The common bile duct measures approximately 7 mm in its greatest transverse dimension. Multiple ultrasonographic images of the gallbladder show no focal or diffuse gallbladder wall thickening. There are no echogenic foci within the gallbladder lumen, which casts acoustic shadows. There is no pericholecystic edema. Images of the pancreatic region show no gross abnormality. The imaged portion of the right kidney is unremarkable. IMPRESSION: 1. Possible mild fatty infiltration of the liver. 2. The common bile duct is upper limits of normal to mildly dilated. Follow-up is recommended. Accredited by the [employer] in General Ultrasound. <Electronically signed by Dariel Delatorre > 04/15/21 1040
== END ==
LOC: M RAD 10:06
PROVIDERS: ATTEND Internal Medicine
DX: R94.5 Abnormal results of liver function studies (principal)

== ENCOUNTER → 2021-04-24 | Outpatient (CLI) | payer OTHER ==
[~2021-04-24] MED LIST changes: +GASTROGRAFIN SOLUTION 30ML (Q9963) As Ordered ONE; +ISOVUE-370 76% 100ML VIAL As Ordered ONE; +POTA-151 PO; -POTA20TA6 PO
== END ==
LOC: M RAD 11:10
PROVIDERS: ATTEND Internal Medicine
DX: K83.8 Other specified diseases of biliary tract (principal)
CPT/HCPCS: 74170; Q9963; Q9967

== ENCOUNTER → 2022-03-26 | Outpatient (CLI) | payer OTHER ==
[~2022-03-26] MED LIST changes: +CLOP75TA99 PO; -D31000TA2 PO; -GASTROGRAFIN SOLUTION 30ML (Q9963) As Ordered ONE; -ISOVUE-370 76% 100ML VIAL As Ordered ONE; -PLAV1TAB2 PO; +VITA100093 PO
== END ==
LOC: M WHC 08:29
PROVIDERS: ATTEND Obstetrics & Gynecology
DX: Z12.31 Encounter for screening mammogram for malignant neoplasm of breast (principal)

== ENCOUNTER → 2022-03-26 | Outpatient (REF) | payer OTHER | LOC: M PLALAB 11:22 | PROVIDERS: ATTEND Obstetrics & Gynecology | DX: Z01.419 Encounter for gynecological examination (general) (routine) without abnormal findings (principal) | CPT/HCPCS: 87624; G0123 ==

== ENCOUNTER 2023-03-01 12:42 | Observation (INO) | payer OTHER ==
[~2023-03-01] VITALS: Ht 157.5 cm; Wt 72.7 kg
[2023-03-01 15:46] LABS: BASO % 0.6 % (0.0-1.0); EOS # 0.2 10^3/uL (0.0-0.5); EOS % 2.5 % (0.0-3.0); HEMATOCRIT 39.3 % (36.0-47.0); HEMOGLOBIN 13.2 g/dl (12.0-15.5); MEAN CORPUSCULAR HEMOGLOBIN 31.3 pg (27.0-33.0); MEAN CORPUSCULAR HGB CONC 33.6 g/dl (32.0-36.5); MEAN CORPUSCULAR VOLUME 93.1 fl (80.0-96.0); MONO # 0.7 10^3/uL (0.0-0.8); MONO % 10.7 % (2.0-8.0); NEUTROPHILS # 3.9 10^3/uL (1.5-8.5); NEUTROPHILS % 56.9 % (36.0-66.0); PLATELET COUNT, AUTOMATED 273 10^3/uL (150-450); RED BLOOD COUNT 4.22 10^6/uL (4.00-5.40); WHITE BLOOD COUNT 6.9 10^3/uL (4.0-10.0)
[2023-03-01 16:00] LABS: INR 1.06; PROTHROMBIN TIME 13.5 SECONDS (12.5-14.5)
[2023-03-01 16:01] LABS: PARTIAL THROMBOPLASTIN TIME 24.1 SECONDS (24.8-34.2)
[2023-03-01 16:08] LABS: BLOOD UREA NITROGEN 17 MG/DL (9-23); CALCIUM LEVEL 8.8 MG/DL (8.5-10.1); CARBON DIOXIDE LEVEL 24 MMOL/L (20-31); CHLORIDE LEVEL 108 MMOL/L (98-107); CREATININE FOR GFR 0.64 MG/DL (0.55-1.30); GLOMERULAR FILTRATION RATE > 60.0 (>51); GLUCOSE, FASTING 94 MG/DL (60-100); POTASSIUM SERUM 4.2 MMOL/L (3.5-5.1); SODIUM LEVEL 139 MMOL/L (136-145)
[2023-03-01] MEDS ORDERED: ATOR80TA59 PO (17:22)
[2023-03-01] MEDS ORDERED: HOME MED LIST COMPLETE! XX SCH (17:25)
[2023-03-01 18:00] VITALS: BP 127/66; TEMP 98.4; O2SAT 100
[2023-03-01 19:40] VITALS: BP 118/56; TEMP 98.1; O2SAT 97
[2023-03-01] MEDS: PANTOPRAZOLE 40MG TAB (PROTONIX) PO SCH (21:00)
[2023-03-01] MEDS: ATORVASTATIN 20 MG TAB PO SCH (21:21)
[2023-03-01] MEDS: ACETAMINOPHEN TAB 650MG DOSE (2X325MG) PO PRN (21:22)
[2023-03-02 04:54] VITALS: TEMP 97.5; O2SAT 98
[2023-03-02 07:14] LABS: BASO % 0.3 % (0.0-1.0); EOS # 0.2 10^3/uL (0.0-0.5); EOS % 2.5 % (0.0-3.0); HEMATOCRIT 40.2 % (36.0-47.0); HEMOGLOBIN 13.1 g/dl (12.0-15.5); LYMPH # 1.3 10^3/uL (1.5-5.0); LYMPH % 21.1 % (24.0-44.0); MEAN CORPUSCULAR HGB CONC 32.6 g/dl (32.0-36.5); MEAN CORPUSCULAR VOLUME 95.3 fl (80.0-96.0); MONO # 0.6 10^3/uL (0.0-0.8); MONO % 10.3 % (2.0-8.0); NEUTROPHILS % 65.6 % (36.0-66.0); PLATELET COUNT, AUTOMATED 258 10^3/uL (150-450); RED BLOOD COUNT 4.22 10^6/uL (4.00-5.40); WHITE BLOOD COUNT 6.1 10^3/uL (4.0-10.0)
[2023-03-02] MEDS: ACETAMINOPHEN TAB 650MG DOSE (2X325MG) PO PRN ×2 (07:38→14:09)
[2023-03-02 07:46] LABS: BLOOD UREA NITROGEN 15 MG/DL (9-23); CARBON DIOXIDE LEVEL 27 MMOL/L (20-31); CHLORIDE LEVEL 108 MMOL/L (98-107); CREATININE FOR GFR 0.67 MG/DL (0.55-1.30); GLOMERULAR FILTRATION RATE > 60.0 (>51); GLUCOSE, FASTING 98 MG/DL (60-100); POTASSIUM SERUM 4.5 MMOL/L (3.5-5.1); SODIUM LEVEL 142 MMOL/L (136-145)
[2023-03-02] MEDS: D5W/0.9% SODIUM CHLORIDE 1,000 ML IV SCH ×2 (10:00→22:20)
[2023-03-02 14:00] VITALS: BP 126/76; TEMP 97.7; O2SAT 97
[2023-03-02] MEDS ORDERED: MIDAZOLAM INJ 2MG/2ML VIAL As Ordered ONE (16:14)
[2023-03-02] MEDS ORDERED: propofoL 200 MG/20 ML VIAL As Ordered ONE (16:15)
[2023-03-02] MEDS ORDERED: fentaNYL 100 MCG/2 ML INJECTION As Ordered ONE (16:15)
[2023-03-02] MEDS ORDERED: ROCURONIUM BROMIDE 50MG/5ML VIAL As Ordered ONE (16:15)
[2023-03-02] MEDS ORDERED: LIDOCAINE 2% 100MG/5ML SDV (FOR ANES.) As Ordered ONE (16:15)
[2023-03-02] MEDS ORDERED: ONDANSETRON 4MG 2ML VIAL As Ordered ONE (16:15)
[2023-03-02] MEDS ORDERED: LIDOCAINE 1% MDV 20ML VIAL As Ordered ONE (17:10)
[2023-03-02] MEDS ORDERED: ceFAZolin 2 GM/D5W 50 ML IV BAG As Ordered ONE (19:15)
[2023-03-02] MEDS ORDERED: TRANEXAMIC ACID 100 MG/ML 10ML VIAL As Ordered ONE (19:15)
[2023-03-02] MEDS: PANTOPRAZOLE 40MG TAB (PROTONIX) PO SCH (21:00)
[2023-03-02] MEDS: ATORVASTATIN 20 MG TAB PO SCH (21:00)
[2023-03-02] MEDS ORDERED: VANCOMYCIN 1000MG/20ML VIAL As Ordered ONE (21:27)
[2023-03-02] MEDS ORDERED: KETOROLAC 60MG 2ML VIAL As Ordered ONE (21:33)
[2023-03-02] MEDS ORDERED: fentaNYL 100 MCG/2 ML INJECTION IV PRN (22:10)
[2023-03-02] MEDS ORDERED: ONDANSETRON 4MG 2ML VIAL IV PRN (22:10)
[2023-03-02] MEDS ORDERED: HYDROMORPHONE HCL 0.5 MG/ 0.5 ML SYRINGE IV PRN (22:10)
[2023-03-02] MEDS ORDERED: METOCLOPRAMIDE INJ 10MG/2ML VIAL IV PRN (22:10)
[2023-03-02] MEDS: oxyCODONE 5MG TAB PO PRN ×2 (22:33→23:01)
[2023-03-02 22:54] LABS: TOTAL 25(OH) VITAMIN D 94.4 NG/ML (20.0-100.0)
[2023-03-02 23:13] VITALS: BP 122/69; TEMP 97.5; O2SAT 96
[2023-03-02 23:45] VITALS: BP 95/50; TEMP 98.1; O2SAT 93
[2023-03-03] VITALS (9 sets, daily range): BP systolic 82–128; BP diastolic 45–80; TEMP 97.3–98.2; O2SAT 91–97
[2023-03-03] MEDS: KETOROLAC 30 MG/ML 1ML VIAL IV PRN ×2 (01:29→11:29)
[2023-03-03] MEDS: ceFAZolin SOD 2 GM in IV 1 EA IV SCH ×3 (02:55→16:07)
[2023-03-03] MEDS: ACETAMINOPHEN TAB 650MG DOSE (2X325MG) PO PRN (05:56)
[2023-03-03 06:07] LABS: BASO % 0.1 % (0.0-1.0); HEMOGLOBIN 12.5 g/dl (12.0-15.5); LYMPH # 0.8 10^3/uL (1.5-5.0); LYMPH % 11.5 % (24.0-44.0); MEAN CORPUSCULAR HEMOGLOBIN 31.6 pg (27.0-33.0); MEAN CORPUSCULAR HGB CONC 33.8 g/dl (32.0-36.5); MEAN CORPUSCULAR VOLUME 93.7 fl (80.0-96.0); MONO # 0.3 10^3/uL (0.0-0.8); MONO % 3.6 % (2.0-8.0); NEUTROPHILS # 5.8 10^3/uL (1.5-8.5); NEUTROPHILS % 84.5 % (36.0-66.0); PLATELET COUNT, AUTOMATED 242 10^3/uL (150-450); RED BLOOD COUNT 3.95 10^6/uL (4.00-5.40); WHITE BLOOD COUNT 6.9 10^3/uL (4.0-10.0)
[2023-03-03 06:27] LABS: BLOOD UREA NITROGEN 15 MG/DL (9-23); CALCIUM LEVEL 8.6 MG/DL (8.5-10.1); CARBON DIOXIDE LEVEL 26 MMOL/L (20-31); CHLORIDE LEVEL 107 MMOL/L (98-107); CREATININE FOR GFR 0.69 MG/DL (0.55-1.30); GLOMERULAR FILTRATION RATE > 60.0 (>51); GLUCOSE, FASTING 144 MG/DL (60-100); POTASSIUM SERUM 4.6 MMOL/L (3.5-5.1); SODIUM LEVEL 140 MMOL/L (136-145)
[2023-03-03] MEDS ORDERED: ACET-897 PO (09:01)
[2023-03-03] MEDS ORDERED: NAPR500T6 PO (09:01)
[2023-03-03] MEDS ORDERED: CLOPIDOGREL 75 MG TAB PO SCH (21:00)
== END 2023-03-03 17:25 | disposition home or self-care (01) ==
LOC: M ED 12:42 → M ED INP 17:05 → INTOOBSV 17:05 → ENRESERV 17:15 → M MS5PR 17:55
PROVIDERS: ADMIT Internal Medicine Nephrology; ATTEND Internal Medicine Nephrology
DX: S82.91XA Unspecified fracture of right lower leg, initial encounter for closed fracture (principal); W19.XXXA Unspecified fall, initial encounter; Y92.89 Other specified places as the place of occurrence of the external cause; Y93.9 Activity, unspecified; Y99.9 Unspecified external cause status; G35 Multiple sclerosis; I25.10 Atherosclerotic heart disease of native coronary artery without angina pectoris; Z98.61 Coronary angioplasty status; Z79.899 Other long term (current) drug therapy; Z79.02 Long term (current) use of antithrombotics/antiplatelets; K64.9 Unspecified hemorrhoids; Z87.891 Personal history of nicotine dependence
CPT/HCPCS: 27792; 27829; 36415; 73590; 73610; 76000; 80048; 82306; 85025; 85610; 85730; 86850; 86900; 86901; 87635; 93005; 96361; 96365; 96366; 96375; 96376; 97161; 97165; 97530; 99284; C1713; J0665; J0690; J1100; J1170; J1885; J2250; J2405; J2765; J3010; J3370

== ENCOUNTER → 2023-03-11 | Outpatient (CLI) | payer OTHER ==
[~2023-03-11] MED LIST changes: +ACET-897 PO; +ATOR80TA59 PO; +NAPR500T6 PO
== END ==
LOC: M SOG 07:53
PROVIDERS: ATTEND Orthopaedic Surgery
DX: S82.831A Other fracture of upper and lower end of right fibula, initial encounter for closed fracture (principal); W18.30XA Fall on same level, unspecified, initial encounter; Y92.009 Unspecified place in unspecified non-institutional (private) residence as the place of occurrence of the external cause

== ENCOUNTER → 2023-04-15 | Outpatient (CLI) | payer OTHER | LOC: M SOG 08:03 | PROVIDERS: ATTEND Physician Assistant | DX: S82.831D Other fracture of upper and lower end of right fibula, subsequent encounter for closed fracture with routine healing (principal) ==

== ENCOUNTER → 2023-04-30 | Outpatient (CLI) | payer OTHER | LOC: M SOG 08:07 | PROVIDERS: ATTEND Student in an Organized Health Care Education/Training Program | DX: S82.831D Other fracture of upper and lower end of right fibula, subsequent encounter for closed fracture with routine healing (principal); Z53.9 Procedure and treatment not carried out, unspecified reason ==

== ENCOUNTER 2023-05-08 09:00 | Outpatient (RCR) | payer OTHER | END 2023-05-13 | LOC: M PT 09:00 | PROVIDERS: ATTEND Orthopaedic Surgery | DX: S82.831A Other fracture of upper and lower end of right fibula, initial encounter for closed fracture (principal); X58.XXXA Exposure to other specified factors, initial encounter; Y92.9 Unspecified place or not applicable; Y93.9 Activity, unspecified; Y99.9 Unspecified external cause status ==

== ENCOUNTER → 2023-05-19 | Outpatient (CLI) | payer OTHER | LOC: M WHC 10:10 | PROVIDERS: ATTEND Obstetrics & Gynecology | DX: Z12.31 Encounter for screening mammogram for malignant neoplasm of breast (principal) ==

== ENCOUNTER → 2023-05-19 | Outpatient (REF) | payer OTHER | LOC: M SFHCWAGY 18:02 | PROVIDERS: ATTEND Obstetrics & Gynecology | DX: Z01.419 Encounter for gynecological examination (general) (routine) without abnormal findings (principal) | CPT/HCPCS: 87624; G0123 ==

== ENCOUNTER → 2023-07-02 | Outpatient (CLI) | payer OTHER | LOC: M SOG 07:48 | PROVIDERS: ATTEND Physician Assistant | DX: S82.831D Other fracture of upper and lower end of right fibula, subsequent encounter for closed fracture with routine healing (principal) ==

== ENCOUNTER → 2024-06-21 | Outpatient (CLI) | payer OTHER ==
[~2024-06-21] MED LIST changes: +NAPR-1405 PO; -NAPR500T6 PO
== END ==
LOC: M WHC 09:49
PROVIDERS: ATTEND Obstetrics & Gynecology
DX: Z12.31 Encounter for screening mammogram for malignant neoplasm of breast (principal); R92.333 Mammographic heterogeneous density, bilateral breasts

== ENCOUNTER → 2024-06-21 | Outpatient (REF) | payer OTHER | LOC: M SFHCWAGY 10:22 | PROVIDERS: ATTEND Obstetrics & Gynecology | DX: Z12.4 Encounter for screening for malignant neoplasm of cervix (principal) ==

== ENCOUNTER 2024-11-28 08:49 | Day surgery (SDC) | payer OTHER ==
[~2024-11-28] VITALS: Ht 157.5 cm; Wt 70.7 kg
[~2024-11-28 08:49] MED LIST changes: +ROSU5TAB49 PO
[2024-11-28] MEDS ORDERED: LIDOCAINE 2% 100 MG/5 ML SDV (FOR ANES.) As Ordered ONE (10:02)
[2024-11-28 10:11] VITALS: TEMP 98.7
[2024-11-28 10:35] VITALS: BP 127/74; O2SAT 63
== END 2024-11-28 10:46 | disposition home or self-care (01) ==
LOC: M OPP 08:49
PROVIDERS: ATTEND Surgery
DX: Z12.11 Encounter for screening for malignant neoplasm of colon (principal); K63.5 Polyp of colon; Z95.5 Presence of coronary angioplasty implant and graft; Z86.73 Personal history of transient ischemic attack (TIA), and cerebral infarction without residual deficits; Z79.02 Long term (current) use of antithrombotics/antiplatelets; Z79.899 Other long term (current) drug therapy